=== PATIENT | male | born 1940 | race Hispanic/Latino ===

== ENCOUNTER 2017-02-26 10:11 | Observation (INO) | payer MEDICARE, BC ==
[2017-02-26 10:11] VITALS: BMI 27.3
[2017-02-26] MEDS ORDERED: Iohexol 240 (50 ml) PO STA (11:14)
[2017-02-26] MEDS ORDERED: Sodium Chloride 0.9% 1,000 ML IV ONE (11:14)
--- NOTE | 2017-02-26 11:14 | C.PDOC ---
History Of Present Illness 76 yr old male presents to the ER with complaints of new onset of right sided chest pain since 0700 today. Patient states the pain radiates to the right side of the neck but has now resolved. Patient reports history of prior heart stent and is s/p stress test 2016. 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 Also reports of diaphoresis. Patient denies associated chest pain, SOB, nausea or vomiting. Patient also reports of chronic throat pain "for a while" but only while eating or clears his throat. Patient states he is able to swallow liquids and solids without difficulty. Patient states he gets a rash to the abdominal wall when he eats and was seen by a plug stitcher for the same and was diagnosed with "bacterial infection". Patient states he is s/p possible photo therapy for same but states no improvement in symptoms. Patient denies any prior history of GI evaluation for the symptoms. Denies PUD or other GI related problems. Patient states he is non compliant with his regular medicine for the past 3 weeks, states "because I was getting all those dermatology treatments and I thought it would be best if I stopped". Other fleming patient denies fever, chills, headache , weakness or numbness. MULTIPLE COMPLAINTS NEW ONSET R SIDED CHEST PAIN 0700. RADIATION R NECK, NOW RESOLVED. HO PRIOR HEART STENT, S/P STRESS TEST 2016. 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 NO ASSOC NV, CP. + DIAPH. ALSO CO CHRONIC THROAT PAIN "FOR A WHILE", ONLY W EATING SPICY FOODS OR CLEARS HIS THROAT. ABLE TO SWALLOW LIQUIDS AND SOLIDS WO DIFF. STATES GETS ABD WALL RASH WHEN EATS. SAW VIRTUAL ASSISTANT FOR SAME, DX "BACTERIAL INFXN". S/P ?PHOTO THERAPY FOR SAME BUT PS NO IMPROVE SX. NO PRIOR GI EVAL FOR SAME,. DENIES HO PUD , OTHER GI PROBLEM. NON COMPLAINT W REG MEDS X 3 WEEKS "BC I WAS GETTING ALL THOSE DERMATOLOGY TREATMENTS AND I THOUGHT IT WOULD BE BEST IF I STOPPED". EXAM NAD NONTOXIC HEENT NO STRIDOR; SWALLOWING WO DIFF NECK NO GROSS MASS, ASYM LUNGS CTA BL NO W/R/R CV RRR ABD NEG SKIN MULT LACY, RASH RUQ ABD WALL NONBLANCHING FLAT, SMOOTH. NONTEND. REMAINDER NEG Time Seen by Provider: 02/26/17 11:03 Chief Complaint (Nursing): Chest Pain History Per: Patient History/Exam Limitations: no limitations Onset/Duration Of Symptoms: Days Current Symptoms Are (Timing): Still Present Past Medical History Reviewed: Historical Data, Nursing Documentation, Vital Signs Vital Signs: Last Vital Signs Temp 98.1 F 02/26/17 10:25 Pulse 68 02/26/17 14:10 Resp 14 02/26/17 14:10 BP 165/80 H 02/26/17 14:10 Pulse Ox 98 02/26/17 17:38 - Medical History PMH: HTN, Hypercholesterolemia, Kidney Stones (with stent placement) Surgical History: Coronary Stent - [facility] Procedures CYSTOSCOPY NEC (03/27/13) REMOV URETERAL DRAIN (06/15/13) TU REMOV URETER OBSTRUCT (04/09/13) URETERAL CATHETERIZATION (03/27/13) Family History: States: No Known Family Hx - Social History Hx Tobacco Use: No Hx Alcohol Use: Yes Hx Substance Use: No - Immunization History Hx Tetanus Toxoid Vaccination: No Hx Influenza Vaccination: No Hx Pneumococcal Vaccination: No Review Of Systems Except As Marked, All Systems Reviewed And Found Negative. Constitutional: Positive for: Other ((+) Diaphoresis ). Negative for: Fever, Chills ENT: Positive for: Throat Pain (Chronic) Cardiovascular: Positive for: Other ((+) Right sided chest pain.). Negative for : Chest Pain Respiratory: Negative for: Shortness of Breath Gastrointestinal: Negative for: Nausea, Vomiting Skin: Positive for: Rash (to abdominal wall) Neurological: Negative for: Weakness, Numbness, Headache Physical Exam - Physical Exam Appears: Non-toxic, No Acute Distress, Other ((+) Swallowing without difficulty. ) Skin: Warm, Dry, Other ((+) Multiple LACY, rash to RUQ abd wall. Nonblanching, flat, smooth. ) Head: Atraumatic, Normacephalic Oral Mucosa: Moist Throat: Normal, No Erythema, No Exudate, No Drooling Neck: Normal, Normal ROM, Supple Chest: Symmetrical, No Tenderness Cardiovascular: Rhythm Regular, No Murmur Respiratory: Normal Breath Sounds, No Rales, No Rhonchi, No Stridor, No Wheezing Gastrointestinal/Abdominal: Normal Exam, Soft, No Tenderness, No Guarding, No Rebound Extremity: Normal ROM, No Swelling Neurological/Psych: Oriented x3, Normal Speech, Normal Motor ED Course And Treatment - Laboratory Results Result Diagrams: 02/26/17 11:59 02/26/17 12:21 ECG: Interpreted By Me ECG Rhythm: Sinus Tachycardia Rate From EC (BPM) O2 Sat by Pulse Oximetry: 98 (RA) Pulse Ox Interpretation: Normal - Radiology CXR: Interpreted by Me CXR Interpretation: Yes: No Acute Disease - CT Scan/US US - Abdomen Other Rad Studies (CT/US): Read By Radiologist, Radiology Report Reviewed CT/US Interpretation: HISTORY: R ABD PAIN RO ACUTE ALEX. COMPARISON: CT abdomen and pelvis without IV contrast performed 03/24/13. TECHNIQUE: Sonographic evaluation of the right upper quadrant of the abdomen. FINDINGS: LIVER: Measures 17.5 cm in length. Echogenic liver may be seen in setting of hepatic parenchymal disease or fatty infiltration. 2.8 x 2.4 x 3.2 cm left hepatic lobe and 4.1 x 4.0 x 4.6 cm right hepatic lobe cysts. The right hepatic lobe cyst appears complex/ multi septated. Main portal vein appears patent with normal directional flow. No intrahepatic bile duct dilatation. GALLBLADDER: No gallstones. No gallbladder wall thickening or pericholecystic edema. Negative sonographic Carlos's sign as assessed by the sexual assault counselor. COMMON BILE DUCT: Measures 5 mm. PANCREAS: Not well-visualized. RIGHT KIDNEY : Measures 10.6 x 6.0 x 5.3 cm. No obstructing calculus or hydronephrosis identified. AORTA: Limited visualization appears grossly unremarkable. IVC: Limited visualization appears grossly unremarkable. OTHER FINDINGS: None . IMPRESSION: Echogenic liver may be seen in setting of hepatic parenchymal disease or fatty infiltration. Right and left hepatic lobe cysts as above. The right hepatic lobe appears complex/ multi septated. Progress - Re-Evaluation Re-evaluation Note: 02/26/17 15:31 APPEARS COMFORTABLE NAD. PENDING CT 02/26/17 17:39 NO RECUR CP SINCE PRIOR EVAL. MILD INCR TROP #2 BUT STILL WNL D/W DR BILL AWARE OF ER FINDINGS. WILL ADMIT - Data Reviewed Data Reviewed: Lab, Diagnostic imaging, EKG, Old records Medical Decision Making Medical Decision Making: PLAN: * CT - Abd & Pelvis * US -Abdomen * CXR * EKG * Troponin * CBC * CMP * Urinalysis * Sodium Chloride IV Disposition Counseled Patient/Family Regarding: Studies Performed, Diagnosis - Disposition Disposition: HOSPITALIZED Disposition Time: :39 Condition: STABLE Forms: [facility] (Japanese) - POA Present On Arrival: None - Clinical Impression Clinical Impression: Liver lesion, Chest pain, Abdominal pain - Scribe Statement The provider has reviewed the documentation as recorded by the Ermiasibjunito Strong Provider Attestation: All medical record entries made by the Ermiasibe were at my direction and personally dictated by me. I have reviewed the chart and agree that the record accurately reflects my personal performance of the history, physical exam, medical decision making, and the department course for this patient. I have also personally directed, reviewed, and agree with the discharge instructions and disposition. Decision To Admit - Pt Status Changed To: Hospital Disposition Of: Observation - . Bed Request Type: Telemetry Admitting Physician: Chrissie Colvin Patient Diagnosis: Liver lesion, Chest pain, Abdominal pain
[2017-02-26] MEDS ORDERED: Iohexol 240 (50 ml) ONE (11:45)
[2017-02-26 12:04] LABS: BASO % 0.6 % (0.0-2.0); EOS % 0.9 % (0.0-4.0); HEMATOCRIT 42.3 % (35.0-51.0); LYMPH % 22.8 % (20.0-40.0); MEAN CELL VOLUME 87.3 fL (80.0-94.0); MEAN CORPUSCULAR HEMOGLOBIN 29.4 pg (27.0-31.0); MEAN CORPUSCULAR HGB CONC 33.7 g/dL (33.0-37.0); MEAN PLATELET VOLUME 8.3 fL (7.2-11.7); MONO # 0.4 K/uL (0.0-0.8); MONO % 7.9 % (0.0-10.0); NRBC % 0.3 % (0.0-2.0); RED CELL DISTRIBUTION WIDTH 15.5 % (11.5-14.5); WHITE BLOOD COUNT 4.6 K/uL (4.8-10.8)
[2017-02-26 12:27] LABS: BLOOD UREA NITROGEN 20 mg/dL (9-20); GLUCOSE,RANDOM 87 mg/dL (75-110)
[2017-02-26 12:28] LABS: ALB/GLOB RATIO 1.5 (1.0-2.1); CARBON DIOXIDE 23 mmol/L (22-30); CHLORIDE 105 mmol/L (98-107); GFR AFRICAN-AMERICAN > 60; POTASSIUM 3.9 mmol/L (3.6-5.2); SODIUM 143 mmol/L (132-148); TOTAL PROTEIN 6.4 g/dL (6.3-8.3)
[2017-02-26 12:29] LABS: ALKALINE PHOSPHATASE 47 U/L (38-126); ALT/SGPT 25 U/L (21-72); AST/SGOT 21 U/L (17-59); BILIRUBIN,TOTAL 0.8 mg/dL (0.2-1.3)
[2017-02-26 12:40] LABS: URINE BILIRUBIN NEGATIVE (NEGATIVE); URINE BLOOD 2+ (NEGATIVE); URINE COLOR YELLOW (YELLOW); URINE GLUCOSE (UA) NEGATIVE (Normal); URINE KETONE NEGATIVE (NEGATIVE); URINE LEUKOCYTE ESTERASE NEGATIVE Leu/uL (Negative); URINE PROTEIN NEGATIVE (NEGATIVE)
[2017-02-26 12:41] LABS: RBC URINE 7 /hpf (0-3); WBC URINE 1 /hpf (0-5)
--- NOTE | 2017-02-26 12:42 | US ---
HISTORY: R ABD PAIN RO ACUTE ALEX COMPARISON: CT abdomen and pelvis without IV contrast performed 03/24/13 TECHNIQUE: Sonographic evaluation of the right upper quadrant of the abdomen. FINDINGS: LIVER: Measures 17.5 cm in length. Echogenic liver may be seen in setting of hepatic parenchymal disease or fatty infiltration. 2.8 x 2.4 x 3.2 cm left hepatic lobe and 4.1 x 4.0 x 4.6 cm right hepatic lobe cysts. The right hepatic lobe cyst appears complex/ multi septated. Main portal vein appears patent with normal directional flow. No intrahepatic bile duct dilatation. GALLBLADDER: No gallstones. No gallbladder wall thickening or pericholecystic edema. Negative sonographic Carlos's sign as assessed by the diesel engine pipe fitter. COMMON BILE DUCT: Measures 5 mm. PANCREAS: Not well-visualized. RIGHT KIDNEY: Measures 10.6 x 6.0 x 5.3 cm. No obstructing calculus or hydronephrosis identified. AORTA: Limited visualization appears grossly unremarkable. IVC: Limited visualization appears grossly unremarkable. OTHER FINDINGS: None . IMPRESSION: Echogenic liver may be seen in setting of hepatic parenchymal disease or fatty infiltration. Right and left hepatic lobe cysts as above. The right hepatic lobe appears complex/ multi septated.
--- NOTE | 2017-02-26 13:15 | RAD ---
PROCEDURE: CHEST RADIOGRAPH, 1 VIEW HISTORY: abd pain COMPARISON: None available. FINDINGS: LUNGS: Clear. PLEURA: No pneumothorax or pleural fluid seen. CARDIOVASCULAR: Normal. OSSEOUS STRUCTURES: No significant abnormalities. VISUALIZED UPPER ABDOMEN: Normal. OTHER FINDINGS: None. IMPRESSION: No active disease. No infiltrate
[2017-02-26] MEDS ORDERED: Iohexol 300 100 ML IJ ONE (16:02)
--- NOTE | 2017-02-26 17:19 | CT ---
PROCEDURE: CT Abdomen and Pelvis with oral and IV contrast. HISTORY: abd pain COMPARISON: Limited abdominal ultrasound performed 02/26/17, CT abdomen and pelvis without IV contrast performed 03/24/13 TECHNIQUE: Contiguous axial images of the abdomen and pelvis. Oral and IV contrast was administered. Coronal and Sagittal reformats generated and reviewed. Contrast dose: 100 mL Omnipaque 300 Radiation dose: Total exam DLP = 494.91 mGy-cm. This CT exam was performed using one or more of the following dose reduction techniques: Automated exposure control, adjustment of the mA and/or kV according to patient size, and/or use of iterative reconstruction technique. FINDINGS: LOWER THORAX: No visible consolidation, pleural effusion, or pneumothorax. Small hiatal hernia/distal esophageal wall thickening. LIVER: Numerous low-density lesions throughout the liver, several of which are too small to characterize. Largest lesions reside within the left hepatic lobe measuring approximately 3.1 x 2.5 cm and in the right hepatic lobe measuring approximately 2.9 x 5.1 cm; this lesion corresponds with complex cystic lesion demonstrated on ultrasound performed 02/26/17. Additionally, there is an enhancing lesion measuring approximately 1.6 x 1.2 cm just lateral to this finding, indeterminate. Overall hypoattenuation of the liver may be seen in the setting of hepatic steatosis. GALLBLADDER AND BILE DUCTS: Unremarkable. PANCREAS: Unremarkable. SPLEEN: Unremarkable. ADRENALS: Unremarkable. KIDNEYS AND URETERS: The kidneys enhance symmetrically. No hydronephrosis or obstructing renal calculus. BLADDER: The urinary bladder appears unremarkable. REPRODUCTIVE: The prostate gland measures approximately 4.1 x 5.4 cm. APPENDIX: The appendix appears within normal limits of caliber. No secondary signs of acute appendicitis. BOWEL: The stomach is nondistended. The bowel loops appear within normal limits of caliber without evidence of intestinal obstruction. Large proximal duodenal diverticulum. Diverticulosis without CT evidence of acute diverticulitis. Fecalization within small bowel loops, nonspecific. PERITONEUM: No significant free fluid. No definite free air. LYMPH NODES: No bulky lymphadenopathy identified. VASCULATURE: Evidence of proximal right renal artery stent. Dense atherosclerotic calcifications of the aorta and branches. Mild bulge of the infrarenal abdominal aorta measuring approximately 2.5 cm in transverse diameter. BONES: Degenerative changes. OTHER FINDINGS: Small bowel containing right ventral hernia adjacent to the umbilicus. IMPRESSION: Numerous low-density lesions throughout the liver, several of which are too small to characterize. Largest lesions reside within the left hepatic lobe measuring approximately 3.1 x 2.5 cm and in the right hepatic lobe measuring approximately 2.9 x 5.1 cm; this lesion corresponds with complex cystic lesion demonstrated on ultrasound performed 02/26/17. Overall hypoattenuation of the liver may be seen in the setting of hepatic steatosis. Additionally, there is an enhancing lesion measuring approximately 1.6 x 1.2 cm just lateral to the largest right hepatic lobe cyst described above, indeterminate. Recommend dedicated cross-sectional imaging for further characterization. Enlarged prostate gland. Recommend correlation with PSA. Diverticulosis without CT evidence of acute diverticulitis. Large duodenal diverticulum. Small bowel containing right ventral hernia adjacent to the umbilicus. No evidence of bowel obstruction. Fecalization within small bowel loops, nonspecific finding. Dense atherosclerotic calcifications of the aorta and branches. Mild bulge of the infrarenal abdominal aorta measuring approximately 2.5 cm in transverse diameter. Evidence of proximal right renal artery stent. Additional findings as above.
--- NOTE | 2017-02-26 19:43 | CP.PCM.HP ---
History of Present Illness - History of Present Illness History of Present Illness: This is a 76 y/o male with known history of CAD, S/P PCI in the past, Hypertension, PVD S/P Femoro-popliteal Bypass surgery L, in the past and hyperlipidemia who was admitted because of chest discomofort. patient reportedly woke up this morning with pain on the right side of his chest that radiated to his neck felt at rest. He has recently stopped taking his medications over the last 3 weeks because of some problem with his stomach. he claims that he has been getting pains in the epigastric area everytime he eats and he claims to smell some bad odor coming from his stomach. This is accompanied by diaphoresis, and loss of appetite. He went to a marketing reporting analyst also who gave him some injections and laser treatments. In the ER he had an abd u/s and CT Scan of the abdomen that showed multiple lesions in the liver some of which are described as complex cysts. He denies any vomiting. Denies any problem with his bm. He is now admitted for further observation and evaluation. Present on Admission - Present on Admission Any Indicators Present on Admission: No History of DVT/PE: No History of Uncontrolled Diabetes: No Review of Systems - Review of Systems All systems: reviewed and no additional remarkable complaints except - EENT Eyes: As Per HPI, Tunnel Vision - Cardiovascular Cardiovascular: Chest Pain, Edema, Radiating Pain - Gastrointestinal Gastrointestinal: Abdominal Pain, Dyspepsia - Genitourinary Genitourinary: As Per HPI - Neurological Neurological: As Per HPI - Psychiatric Psychiatric: As Per HPI Past Patient History - Infectious Disease Hx of Infectious Diseases: None - Past Social History Smoking Status: Former Smoker Drugs: Denies Home Situation {Lives}: Alone - CARDIAC Hx Cardiac Disorders: Yes (S/P PCI) Hx Hypercholesterolemia: Yes Hx Hypertension: Yes Hx Peripheral Vascular Disease: Yes (S/P Fem Pop L) - PULMONARY Hx Respiratory Disorders: No - NEUROLOGICAL Hx Neurological Disorder: No - RENAL Hx Kidney Stones: Yes (with stent placement) - ENDOCRINE/METABOLIC Hx Endocrine Disorders: No - HEMATOLOGICAL/ONCOLOGICAL Hx Blood Disorders: No - MUSCULOSKELETAL/RHEUMATOLOGICAL Hx Musculoskeletal Disorders: No Hx Osteoarthritis: Yes - GASTROINTESTINAL Hx Gastrointestinal Disorders: Yes - PSYCHIATRIC Hx Psychophysiologic Disorder: No Hx Substance Use: No - SURGICAL HISTORY Hx Surgeries: Yes Hx Angiogram: Yes Hx Cardiac Catheterization: Yes Hx Coronary Stent: Yes Hx Femoral-Popliteal Bypass Graft: Yes (L Fem Pop) Hx Vascular Surgery: Yes - ANESTHESIA Hx Anesthesia: Yes Hx Anesthesia Reactions: No Meds Allergies/Adverse Reactions: Allergies Allergy/AdvReac Type Severity Reaction Status Date / Time No Known Allergies Allergy Verified 03/27/13 11:49 Physical Exam - Head Exam Head Exam: NORMAL INSPECTION - Eye Exam Eye Exam: Normal appearance - ENT Exam ENT Exam: Normal Exam - Neck Exam Neck exam: Positive for: Normal Inspection - Respiratory Exam Respiratory Exam: Clear to Auscultation Bilateral, NORMAL BREATHING PATTERN - Cardiovascular Exam Cardiovascular Exam: REGULAR RHYTHM, RRR, +S1, +S2 - GI/Abdominal Exam GI & Abdominal Exam: Normal Bowel Sounds, Soft - Extremities Exam Additional comments: reduced pedal pulses bilaterally - Neurological Exam Neurological exam: Alert, CN II-XII Intact, Oriented x3 - Psychiatric Exam Psychiatric exam: Normal Affect, Normal Mood - Skin Skin Exam: Dry, Intact, Normal Color, Warm Results - Vital Signs Recent Vital Signs: Last Vital Signs Temp 98.1 F 02/26/17 10:25 Pulse 72 02/26/17 18:43 Resp 14 02/26/17 18:43 BP 162/95 H 02/26/17 18:43 Pulse Ox 98 02/26/17 18:43 - Labs Result Diagrams: 02/27/17 05:48 02/27/17 05:48 Labs: Laboratory Results - last 24 hr 02/26/17 02/26/17 02/26/17 11:59 12:21 12:27 WBC 4.6 L RBC 4.84 Hgb 14.2 Hct 42.3 MCV 87.3 MCH 29.4 MCHC 33.7 RDW 15.5 H Plt Count 140 MPV 8.3 Neut % (Auto) 67.8 Lymph % (Auto) 22.8 [place] % (Auto) 7.9 Eos % (Auto) 0.9 Baso % (Auto) 0.6 Neut # 3.1 Lymph # 1.0 [place] # 0.4 Eos # 0.0 Baso # 0.0 PT INR APTT Sodium 143 Potassium 3.9 Chloride 105 Carbon Dioxide 23 Anion Gap 19 BUN 20 Creatinine 1.0 Est GFR ( Amer) > 60 Est GFR (Non-Af Amer) > 60 Random Glucose 87 Calcium 9.0 Total Bilirubin 0.8 AST 21 ALT 25 Alkaline Phosphatase 47 Troponin I < 0.0120 Total Protein 6.4 Albumin 3.9 Globulin 2.6 Albumin/Globulin Ratio 1.5 Lipase 80 Urine Color Yellow Urine Clarity Clear Urine pH 6.0 Ur Specific [place] 1.020 Urine Protein Negative Urine Glucose (UA) Negative Urine Ketones Negative Urine Blood 2+ H Urine Nitrate Negative Urine Bilirubin Negative Urine Urobilinogen 2.0 Ur Leukocyte Esterase Negative Urine WBC (Auto) 1 Urine RBC (Auto) 7 H Ur Squamous Epith Cells < 1 02/26/17 02/26/17 12:27 15:44 WBC RBC Hgb Hct MCV MCH MCHC RDW Plt Count MPV Neut % (Auto) Lymph % (Auto) [place] % (Auto) Eos % (Auto) Baso % (Auto) Neut # Lymph # [place] # Eos # Baso # PT 10.8 INR 1.0 APTT 32 Sodium Potassium Chloride Carbon Dioxide Anion Gap BUN Creatinine Est GFR ( Amer) Est GFR (Non-Af Amer) Random Glucose Calcium Total Bilirubin AST ALT Alkaline Phosphatase Troponin I 0.0300 Total Protein Albumin Globulin Albumin/Globulin Ratio Lipase Urine Color Urine Clarity Urine pH Ur Specific [place] Urine Protein Urine Glucose (UA) Urine Ketones Urine Blood Urine Nitrate Urine Bilirubin Urine Urobilinogen Ur Leukocyte Esterase Urine WBC (Auto) Urine RBC (Auto) Ur Squamous Epith Cells Assessment & Plan - Assessment and Plan (Free Text) Assessment: 1. Chest PAIN, R/O ACS- serial GAURAV and EKG in this patient with known history of CAD S/P PCI [address] Scan with multiple liver lesions- R/O Malignancy vs Hepatic Parenchymal Disease/ Hepatic Steatosis- Requested GI consultation 3. PAD- S/P Fem Pop L- seems stable at thist [email or web address] 4. HTN/ Hyperlipidemia- better controlled at this time with resumption of meds. Decision To Admit - Pt Status Changed To: Hospital Disposition Of: Observation - . Bed Request Type: Telemetry Admitting Physician: Chrissie Colvin
[2017-02-26] MEDS: Cilostazol 100 mg Tab UD PO SCH (23:54)
[2017-02-27 01:34] VITALS: RESP 20
[2017-02-27 05:51] LABS: BASO % 0.9 % (0.0-2.0); EOS # 0.1 K/uL (0.0-0.7); EOS % 2.1 % (0.0-4.0); HEMATOCRIT 39.2 % (35.0-51.0); LYMPH # 1.4 K/uL (1.0-4.3); LYMPH % 35.3 % (20.0-40.0); MEAN CELL VOLUME 87.4 fL (80.0-94.0); MEAN CORPUSCULAR HEMOGLOBIN 29.9 pg (27.0-31.0); MEAN CORPUSCULAR HGB CONC 34.2 g/dL (33.0-37.0); MEAN PLATELET VOLUME 8.1 fL (7.2-11.7); MONO # 0.4 K/uL (0.0-0.8); MONO % 10.3 % (0.0-10.0); NRBC % 0.1 % (0.0-2.0); RED CELL DISTRIBUTION WIDTH 15.4 % (11.5-14.5)
[2017-02-27 06:04] LABS: CHLORIDE 104 mmol/L (98-107); POTASSIUM 3.9 mmol/L (3.6-5.2); SODIUM 142 mmol/L (132-148)
[2017-02-27 06:06] LABS: BILIRUBIN,TOTAL 0.7 mg/dL (0.2-1.3); GFR AFRICAN-AMERICAN > 60
[2017-02-27 06:07] LABS: ALB/GLOB RATIO 1.5 (1.0-2.1); ALKALINE PHOSPHATASE 41 U/L (38-126); ALT/SGPT 24 U/L (21-72); AST/SGOT 18 U/L (17-59); BLOOD UREA NITROGEN 17 mg/dL (9-20); CALCIUM 8.6 mg/dl (8.6-10.4); CARBON DIOXIDE 25 mmol/L (22-30); GLUCOSE,RANDOM 103 mg/dL (75-110); TOTAL PROTEIN 5.6 g/dL (6.3-8.3)
[2017-02-27 06:38] LABS: CARCINOEMBRYONIC ANTIGEN 2.5 ng/mL (0-3.0); PROSTATE SPECIFIC ANTIGEN 2.92 ng/mL (0.00-4.0)
[2017-02-27] MEDS: Metoprolol Succinate 50 mg XL Tab PO SCH ×2 (10:13→17:38)
[2017-02-27] MEDS: Cilostazol 100 mg Tab UD PO SCH (10:13)
[2017-02-27 15:38] VITALS: BP 104/65; PULSE 84; TEMP 97.6; O2SAT 96
--- NOTE | 2017-02-27 17:23 | CP.PCM.DIS ---
Provider - Provider Date of Admission: 02/26/17 17:40 Attending physician: Chrissie Colvin MD Primary care physician: Steven Colvin Consults: Aneudy Bridges Time Spent in preparation of Discharge (in minutes): 40 Diagnosis - Discharge Diagnosis (1) Atypical chest pain Status: Resolved Priority: Medium Comment: ACS ruled out with normal enzymes and EKG's. Will resume cardiac meds that he stopped for a few weeks. (2) Abdominal pain, acute, epigastric Status: Resolved Priority: Medium Comment: Discussed with GI. Will follow up in the office for further evaluation and management. (3) Abnormal CT scan, liver Status: Chronic Priority: Medium Comment: Mosy likely benign. Noted in CT Scan in 2013. No significant change. (4) Hypertension Status: Chronic Priority: Low Comment: To resume all antihypertensive meds. BP much improved. Hospital Course - Lab Results Lab Results: Most Recent Lab Values WBC 4.0 K/uL (4.8-10.8) L 02/27/17 05:48 RBC 4.48 Mil/uL (4.40-5.90) 02/27/17 05:48 Hgb 13.4 g/dL (12.0-18.0) 02/27/17 05:48 Hct 39.2 % (35.0-51.0) 02/27/17 05:48 MCV 87.4 fL (80.0-94.0) 02/27/17 05:48 MCH 29.9 pg (27.0-31.0) 02/27/17 05:48 MCHC 34.2 g/dL (33.0-37.0) 02/27/17 05:48 RDW 15.4 % (11.5-14.5) H 02/27/17 05:48 Plt Count 119 K/uL (130-400) L D 02/27/17 05:48 MPV 8.1 fL (7.2-11.7) 02/27/17 05:48 Neut % (Auto) 51.4 % (50.0-75.0) 02/27/17 05:48 Lymph % (Auto) 35.3 % (20.0-40.0) 02/27/17 05:48 [place] % (Auto) 10.3 % (0.0-10.0) H 02/27/17 05:48 Eos % (Auto) 2.1 % (0.0-4.0) 02/27/17 05:48 Baso % (Auto) 0.9 % (0.0-2.0) 02/27/17 05:48 Neut # 2.1 K/uL (1.8-7.0) 02/27/17 05:48 Lymph # 1.4 K/uL (1.0-4.3) 02/27/17 05:48 [place] # 0.4 K/uL (0.0-0.8) 02/27/17 05:48 Eos # 0.1 K/uL (0.0-0.7) 02/27/17 05:48 Baso # 0.0 K/uL (0.0-0.2) 02/27/17 05:48 Differential Comment 02/27/17 05:48 PT 10.8 SECONDS (9.7-12.2) 02/26/17 12:27 INR 1.0 02/26/17 12:27 APTT 32 SECONDS (21-34) 02/26/17 12:27 Sodium 142 mmol/L (132-148) 02/27/17 05:48 Potassium 3.9 mmol/L (3.6-5.2) 02/27/17 05:48 Chloride 104 mmol/L (98-107) 02/27/17 05:48 Carbon Dioxide 25 mmol/L (22-30) 02/27/17 05:48 Anion Gap 17 (10-20) 02/27/17 05:48 BUN 17 mg/dL (9-20) 02/27/17 05:48 Creatinine 1.2 MG/DL (0.8-1.5) 02/27/17 05:48 Est GFR ( Amer) > 60 02/27/17 05:48 Est GFR (Non-Af Amer) 59 02/27/17 05:48 POC Glucose (mg/dL) 118 mg/dL (65-110) H 02/27/17 12:47 Random Glucose 103 mg/dL (75-110) 02/27/17 05:48 Calcium 8.6 mg/dl (8.6-10.4) 02/27/17 05:48 Total Bilirubin 0.7 mg/dL (0.2-1.3) 02/27/17 05:48 AST 18 U/L (17-59) 02/27/17 05:48 ALT 24 U/L (21-72) 02/27/17 05:48 Alkaline Phosphatase 41 U/L (38-126) 02/27/17 05:48 Total Creatine Kinase 32 U/L (55-170) L 02/27/17 11:14 CK-MB (Mass) 0.55 ng/mL (0.0-3.38) 02/27/17 11:14 Troponin I 0.0300 ng/mL (0.00-0.120) 02/26/17 15:44 Troponin I, Quant 0.0140 ng/mL (0.00-0.120) 02/27/17 11:14 Total Protein 5.6 g/dL (6.3-8.3) L 02/27/17 05:48 Albumin 3.3 g/dL (3.5-5.0) L 02/27/17 05:48 Globulin 2.3 gm/dL (2.2-3.9) 02/27/17 05:48 Albumin/Globulin Ratio 1.5 (1.0-2.1) 02/27/17 05:48 Lipase 80 U/L (23-300) 02/26/17 12:21 Alpha Fetoprotein 3.1 ng/mL (0.0-7.5) 02/27/17 05:48 Carcinoembryonic Ag 2.5 ng/mL (0-3.0) 02/27/17 05:48 Prostate Specific Ag 2.92 ng/mL (0.00-4.0) 02/27/17 05:48 Urine Color Yellow (YELLOW) 02/26/17 12:27 Urine Clarity Clear (Clear) 02/26/17 12:27 Urine pH 6.0 (5.0-8.0) 02/26/17 12:27 Ur Specific [place] 1.020 (1.003-1.030) 02/26/17 12:27 Urine Protein Negative mg/dL (NEGATIVE) 02/26/17 12:27 Urine Glucose (UA) Negative mg/dL (Normal) 02/26/17 12:27 Urine Ketones Negative mg/dL (NEGATIVE) 02/26/17 12:27 Urine Blood 2+ (NEGATIVE) H 02/26/17 12:27 Urine Nitrate Negative (NEGATIVE) 02/26/17 12:27 Urine Bilirubin Negative (NEGATIVE) 02/26/17 12:27 Urine Urobilinogen 2.0 mg/dL (0.2-1.0) 02/26/17 12:27 Ur Leukocyte Esterase Negative [place]/uL (Negative) 02/26/17 12:27 Urine WBC (Auto) 1 /hpf (0-5) 02/26/17 12:27 Urine RBC (Auto) 7 /hpf (0-3) H 02/26/17 12:27 Ur Squamous Epith Cells < 1 /hpf (0-5) 02/26/17 12:27 - Hospital Course Hospital Course: kylee is a 76 y/o male who was admitted because of chest pain radiating to his neck. He has history of CAD, S/P PCI several years ago. He also has PVD and had Fem-po bypass in the past. He had serial enzymes and EKG's that ruled out ACS. He also complained of epigastric pain whenever he ate accompanied by feeling of diphoresis/flushing and loss of appetite. He had a CT Scan of the Abd and pelvis with contrast that showed multiple cystic lesion in the liver. GI consultation was obtained. Patient claims that the abdominal and chest pain have been relieved. He will be discharged today and will be followed up in the office by myself and by the GI specialist. Discharge Exam - Head Exam Head Exam: NORMAL INSPECTION - Eye Exam Eye Exam: Normal appearance - ENT Exam ENT Exam: Normal Exam - Neck Exam Neck exam: Normal Inspection - Respiratory Exam Respiratory Exam: Clear to PA & Lateral, NORMAL BREATHING PATTERN - Cardiovascular Exam Cardiovascular Exam: REGULAR RHYTHM, RRR, +S1, +S2 - GI/Abdominal Exam GI & Abdominal Exam: Normal Bowel Sounds, Soft - Extremities Exam Additional comments: reduced pedal pulses - Neurological Exam Neurological exam: Alert, Oriented x3 - Psychiatric Exam Psychiatric exam: Normal Affect, Normal Mood Discharge Plan - Follow Up Plan Condition: STABLE Disposition: HOME/ ROUTINE
--- NOTE | 2017-02-27 17:41 | CP.PCM.CON ---
History of Present Illness - History of Present Illness History of Present Illness: This is a 76 year old man admitted with chest pain. GI consulted for abdominal flushing, sweating and body odor. Patient states that he was in his usual state of health until three months ago, when he noted the following symptoms after each meal: sweating, flushing of the skin over the abdomen and an intense body odor. He denies having heartburn, loss of appetite, diarrhea, constipation, rectal bleeding. He has the sensation of a lump in the throat but is able to swallow food without difficulty. He has lost 10 to 15 pounds during this time. He consulted a wagon drill operator who prescribe topical antibiotics and performed allergy testing. Review of Systems - Constitutional Constitutional: absent: Chills, Fever - Cardiovascular Cardiovascular: absent: Dyspnea - Gastrointestinal Gastrointestinal: absent: Constipation, Diarrhea, Heartburn, Hematochezia, Nausea, Vomiting - Neurological Neurological: absent: Numbness, Headaches, Weakness Past Patient History - Infectious Disease Hx of Infectious Diseases: None - Past Medical History & Family History Past Medical History?: Yes - Past Social History Smoking Status: Former Smoker Drugs: Denies Home Situation {Lives}: Alone - CARDIAC Hx Cardiac Disorders: Yes (S/P PCI) Hx Hypercholesterolemia: Yes Hx Hypertension: Yes Hx Peripheral Vascular Disease: Yes (S/P Fem Pop L) - PULMONARY Hx Respiratory Disorders: No - NEUROLOGICAL Hx Neurological Disorder: No - HEENT Hx HEENT Problems: No - RENAL Hx Kidney Stones: Yes (with stent placement) - ENDOCRINE/METABOLIC Hx Endocrine Disorders: No - HEMATOLOGICAL/ONCOLOGICAL Hx Blood Disorders: No - INTEGUMENTARY Hx Dermatological Problems: No - MUSCULOSKELETAL/RHEUMATOLOGICAL Hx Musculoskeletal Disorders: No Hx Osteoarthritis: Yes - GASTROINTESTINAL Hx Gastrointestinal Disorders: Yes - GENITOURINARY/GYNECOLOGICAL Hx Genitourinary Disorders: Yes Hx Prostate Problems: Yes - PSYCHIATRIC Hx Psychophysiologic Disorder: No Hx Substance Use: No - SURGICAL HISTORY Hx Surgeries: Yes Hx Angiogram: Yes Hx Cardiac Catheterization: Yes Hx Coronary Stent: Yes Hx Femoral-Popliteal Bypass Graft: Yes (L Fem Pop) Hx Vascular Surgery: Yes - ANESTHESIA Hx Anesthesia: Yes Hx Anesthesia Reactions: No Meds Allergies/Adverse Reactions: Allergies Allergy/AdvReac Type Severity Reaction Status Date / Time No Known Allergies Allergy Verified 03/27/13 11:49 - Medications Medications: Current Medications Cilostazol (Pletal) 100 mg PO BID [facility] Last Admin: 02/27/17 10:13 Dose: 100 mg Metoprolol Succinate (Toprol Xl) 50 mg PO BID [facility] Last Admin: 02/27/17 10:13 Dose: 50 mg Pneumococcal Polyvalent Vaccine (Pneumovax 23 Vaccine) 0.5 ml IM .ONCE ONE Stop: 02/28/17 10:01 Rosuvastatin Calcium (Crestor) 5 mg PO [facility] Last Admin: 02/26/17 23:55 Dose: 5 mg Physical Exam - Constitutional Appears: No Acute Distress - Head Exam Head Exam: ATRAUMATIC, NORMOCEPHALIC - Eye Exam Eye Exam: EOMI, PERRL - Neck Exam Neck exam: Negative for: Lymphadenopathy, Thyromegaly - Respiratory Exam Respiratory Exam: NORMAL BREATHING PATTERN. absent: Rales, Rhonchi, Wheezes - Cardiovascular Exam Cardiovascular Exam: REGULAR RHYTHM, +S1. absent: Rubs, Systolic Murmur - GI/Abdominal Exam GI & Abdominal Exam: Normal Bowel Sounds, Soft. absent: Mass, Organomegaly, Tenderness - Rectal Exam Rectal Exam: Deferred - Extremities Exam Extremities exam: Negative for: calf tenderness, pedal edema Results - Vital Signs Recent Vital Signs: Last Vital Signs Temp 97.6 F 02/27/17 15:31 Pulse 84 02/27/17 15:31 Resp 20 02/27/17 15:31 BP 104/65 02/27/17 15:31 Pulse Ox 96 02/27/17 15:31 - Labs Result Diagrams: 02/27/17 05:48 02/27/17 05:48 Labs: Laboratory Results - last 24 hr 02/27/17 02/27/17 02/27/17 05:48 05:48 05:48 WBC 4.0 L RBC 4.48 Hgb 13.4 Hct 39.2 MCV 87.4 MCH 29.9 MCHC 34.2 RDW 15.4 H Plt Count 119 L D MPV 8.1 Neut % (Auto) 51.4 Lymph % (Auto) 35.3 [place] % (Auto) 10.3 H Eos % (Auto) 2.1 Baso % (Auto) 0.9 Neut # 2.1 Lymph # 1.4 [place] # 0.4 Eos # 0.1 Baso # 0.0 Differential Comment Sodium 142 Potassium 3.9 Chloride 104 Carbon Dioxide 25 Anion Gap 17 BUN 17 Creatinine 1.2 Est GFR ( Amer) > 60 Est GFR (Non-Af Amer) 59 POC Glucose (mg/dL) Random Glucose 103 Calcium 8.6 Total Bilirubin 0.7 AST 18 ALT 24 Alkaline Phosphatase 41 Total Creatine Kinase 33 L CK-MB (Mass) 0.55 Troponin I, Quant 0.0150 Total Protein 5.6 L Albumin 3.3 L Globulin 2.3 Albumin/Globulin Ratio 1.5 Alpha Fetoprotein 3.1 Carcinoembryonic Ag 2.5 Prostate Specific Ag 2.92 02/27/17 02/27/17 11:14 12:47 WBC RBC Hgb Hct MCV MCH MCHC RDW Plt Count MPV Neut % (Auto) Lymph % (Auto) [place] % (Auto) Eos % (Auto) Baso % (Auto) Neut # Lymph # [place] # Eos # Baso # Differential Comment Sodium Potassium Chloride Carbon Dioxide Anion Gap BUN Creatinine Est GFR ( Amer) Est GFR (Non-Af Amer) POC Glucose (mg/dL) 118 H Random Glucose Calcium Total Bilirubin AST ALT Alkaline Phosphatase Total Creatine Kinase 32 L CK-MB (Mass) 0.55 Troponin I, Quant 0.0140 Total Protein Albumin Globulin Albumin/Globulin Ratio Alpha Fetoprotein Carcinoembryonic Ag Prostate Specific Ag Assessment & Plan - Assessment and Plan (Free Text) Assessment: Patient presents with an unusual constellation of symptoms: stereotyped diaphoresis, flushing of the abdomen and body odor after each meal. Gastric carcinoids can cause such flushing without diarrhea or cardiac abnormalities.Recommend testing for H pylori and EGD which can be done as an outpatient.
[2017-02-28] MEDS ORDERED: Pneumococcal 23-Valent Vaccine IM ONE (10:00)
== END 2017-02-27 18:30 | disposition home or self-care (01) ==
LOC: C.ER 10:11 → C.9E 17:40 → C.6T 19:45
PROVIDERS: ADMIT Internal Medicine Cardiovascular Disease; ATTEND Internal Medicine Cardiovascular Disease
DX: R07.89 Other chest pain (principal); K76.9 Liver disease, unspecified; R10.13 Epigastric pain; E78.00 Pure hypercholesterolemia, unspecified; E78.5 Hyperlipidemia, unspecified; I10 Essential (primary) hypertension; I25.10 Atherosclerotic heart disease of native coronary artery without angina pectoris; I73.9 Peripheral vascular disease, unspecified; Z87.442 Personal history of urinary calculi; Z87.891 Personal history of nicotine dependence; Z91.19 Patient's noncompliance with other medical treatment and regimen; Z95.5 Presence of coronary angioplasty implant and graft
CPT/HCPCS: 36415; 71010; 74177; 76705; 80053; 81001; 82105; 82378; 82948; 83690; 84153; 84484; 85025; 85610; 85730; 99285; G0378; J7040; Q9966; Q9967

== ENCOUNTER 2017-09-17 10:02 | Inpatient (IN) | payer MEDICARE, BC ==
[2017-09-17 10:02] VITALS: BMI 27.3
[2017-09-17 11:59] LABS: BASO % 0.7 % (0.0-2.0); EOS # 0.1 K/uL (0.0-0.7); EOS % 1.3 % (0.0-4.0); HEMOGLOBIN 13.5 g/dL (12.0-18.0); LYMPH # 1.2 K/uL (1.0-4.3); MEAN CELL VOLUME 88.7 fL (80.0-94.0); MEAN CORPUSCULAR HEMOGLOBIN 30.3 pg (27.0-31.0); MEAN CORPUSCULAR HGB CONC 34.2 g/dL (33.0-37.0); MEAN PLATELET VOLUME 8.1 fL (7.2-11.7); MONO # 0.5 K/uL (0.0-0.8); NEUT # 3.9 K/uL (1.8-7.0); RBC 4.46 Mil/uL (4.40-5.90); RED CELL DISTRIBUTION WIDTH 14.4 % (11.5-14.5); WHITE BLOOD COUNT 5.7 K/uL (4.8-10.8)
[2017-09-17 12:12] LABS: ALB/GLOB RATIO 1.3 (1.0-2.1); ALT/SGPT 29 U/L (21-72); AST/SGOT 29 U/L (17-59); BLOOD UREA NITROGEN 25 mg/dL (9-20); CALCIUM 8.9 mg/dl (8.6-10.4); GFR AFRICAN-AMERICAN > 60; GFR NON-AFRICAN AMERICAN > 60
[2017-09-17] MEDS ORDERED: Sodium Chloride 0.9% 1,000 ML IV STA (12:47)
--- NOTE | 2017-09-17 13:09 | RAD ---
PROCEDURE: CHEST RADIOGRAPH, 1 VIEW HISTORY: LE edema COMPARISON: 08/13/2017 FINDINGS: LUNGS: Clear. PLEURA: No pneumothorax or pleural fluid seen. CARDIOVASCULAR: No radiographic findings to suggest acute or significant cardiovascular disease. OSSEOUS STRUCTURES: No significant abnormalities. VISUALIZED UPPER ABDOMEN: Normal. OTHER FINDINGS: None. IMPRESSION: No active disease. No acute/significant interval changes.
--- NOTE | 2017-09-17 13:32 | C.PDOC ---
History Of Present Illness 76 year old male presents to the ED c/o right leg pain that started several weeks ago. Patient reports at first patient felt only cramps in his leg that would wake him from sleep with his toes all curled up. Patient states when he walks long distances he develops pain in his right calf which makes him stop walking and wait until he is able to walk again. Patient reports pain worsens and now is not able to walk. Patient states 5 years ago he had a "vascular problem" but the Doctor who performed the surgery retired. Patient went to his PMD Dr. Grimm who sent him to the ED for evaluation. Patient denies SOB, CP, abdominal pain, recent travel. Time Seen by Provider: 09/17/17 11:27 Chief Complaint (Nursing): Lower Extremity Problem/Injury History Per: Patient History/Exam Limitations: clinical condition Onset/Duration Of Symptoms: Days Current Symptoms Are (Timing): Still Present Recent travel outside of the [place]: No Additional History Per: Patient - Knee Description Of Injury: Other Past Medical History Reviewed: Historical Data, Nursing Documentation, Vital Signs Vital Signs: Last Vital Signs Temp 98.0 F 09/17/17 15:00 Pulse 70 09/17/17 15:00 Resp 18 09/17/17 15:00 BP 155/76 H 09/17/17 15:00 Pulse Ox 99 09/17/17 15:00 - Medical History PMH: HTN, Hypercholesterolemia, Kidney Stones (with stent placement), Chronic Kidney Disease Surgical History: Coronary Stent - [facility] Procedures CYSTOSCOPY NEC (03/27/13) REMOV URETERAL DRAIN (06/15/13) TU REMOV URETER OBSTRUCT (04/09/13) URETERAL CATHETERIZATION (03/27/13) Family History: States: Unknown Family Hx - Social History Hx Tobacco Use: No Hx Alcohol Use: No Hx Substance Use: No - Immunization History Hx Tetanus Toxoid Vaccination: No Hx Influenza Vaccination: No Hx Pneumococcal Vaccination: No Review Of Systems Constitutional: Negative for: Fever, Chills Cardiovascular: Negative for: Chest Pain Respiratory: Negative for: Shortness of Breath Gastrointestinal: Negative for: Abdominal Pain Musculoskeletal: Positive for: Leg Pain Skin: Negative for: Rash Neurological: Negative for: Weakness, Numbness Physical Exam - Physical Exam Appears: Non-toxic, No Acute Distress Skin: Normal Color, Warm, Dry Head: Atraumatic, Normacephalic Eye(s): bilateral: Normal Inspection Extremity: No Tenderness, Capillary Refill (< 2 seconds), Swelling (left leg), Other (left leg scar extending from lwer leg to thigh. Right leg lost hair jensen right side. No erythema. roght foot feels cool) Pulses: Left Dorsalis Pedis: Decreased (present with doppler), Right Dorsalis Pedis: Decreased (present with doppler) Neurological/Psych: Oriented x3, Normal Sensation, Normal Reflexes ED Course And Treatment - Laboratory Results Result Diagrams: 09/17/17 11:55 09/17/17 11:55 O2 Sat by Pulse Oximetry: 98 (On RA) Pulse Ox Interpretation: Normal Medical Decision Making Medical Decision Making: Impression: leg pain Plan: * CT angio lower legs * Labs * CXR * IV fluids * Venous duplex * Arterial duplex Dr. Grimm sent the patient to the ED and requested Dr. López for vascular. Dr. López came to see the patient at bedside to the ED and requested a CT angio of the lower extremities. Patient was accepted for an admission by . 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 - Scribe Statement The provider has reviewed the documentation as recorded by the Scribe Jin James All medical record entries made by the Scribe were at my direction and personally dictated by me. I have reviewed the chart and agree that the record accurately reflects my personal performance of the history, physical exam, medical decision making, and the department course for this patient. I have also personally directed, reviewed, and agree with the discharge instructions and disposition. Decision To Admit - Pt Status Changed To: Hospital Disposition Of: Inpatient - Admit Certification Admit to Inpatient:: After my assessment, the patient will require hospitalization for at least two midnights. This is because of the severity of symptoms shown, intensity of services needed, and/or the medical risk in this patient being treated as an outpatient. - InPatient: Physician Admission Certification: I certify that this patient requires 2 or more midnights of care for the following reason:: Patient will need more than 2 days of hospitalization, may need surgical treatment. - . Bed Request Type: Regular Admitting Physician: Chrissie Colvin Patient Diagnosis: Occlusion of arterial bypass graft
[2017-09-17] MEDS ORDERED: Iodixanol 320 mg/ml 150 ml Bottle IV ONE (15:24)
--- NOTE | 2017-09-17 17:40 | CT ---
PROCEDURE: CT Angiography Abdomen, Pelvis and Lower Extremity with Contrast HISTORY: RLE claudication, request from COMPARISON: Right lower extremity arterial ultrasound 09/17/2017. TECHNIQUE: Technique: CT angiography of the abdomen, pelvis and bilateral lower extremities performed in the arterial phase of enhancement. Coronal and sagittal reformats, and well as rotating MIP images of the vessels generated at the workstation. Intravenous contrast dose: Visipaque 320, 150 cc. Radiation dose: Total exam DLP = 494.91 mGy-cm. This CT exam was performed using one or more of the following dose reduction techniques: Automated exposure control, adjustment of the mA and/or kV according to patient size, and/or use of iterative reconstruction technique. FINDINGS: CT ANGIOGRAPHY: ABDOMINAL AORTA:: The abdominal aorta is widely patent though atherosclerotic with a limited infrarenal dilated segment measuring 2.9 x 2.1 cm further tapering down to 1.9 cm greatest dimension proximal to the bifurcation. MAJOR AORTIC BRANCHES: Celiac [place]: Widely patent. Superior mesenteric artery: Widely patent. Inferior mesenteric artery: Potential high-grade stenosis at its mid segment, though patent throughout. Renal arteries: Prior main right renal artery wall stent is identified in position without significant stenosis apparent. Main left renal artery is unremarkable. PELVIC ARTERIES: Right Common Iliac: Moderately ectatic and atherosclerotic but widely patent with limited proximal stenosis appreciated. Right External Iliac: Ectatic proximally but widely patent. Right Internal Iliac: Moderate stenoses are identified proximally with potential severe distal segmental stenosis though the vessel appears patent throughout. Left Common Iliac: Widely patent though mildly ectatic with limited atherosclerosis related. Left External Iliac: Widely patent without significant stenosis. Limited atherosclerosis. Left Internal Iliac: Patent with [id number] atherosclerosis. RIGHT LOWER EXTREMITY ARTERIES: Right Common Femoral: Widely patent without significant stenosis. A minimal proximal segment of a femoral -femoral bypass graft opacifies with remainder completely occluded to the graft- distal femoral anastomosis. At the site of the distal anastomosis is a 3.8 x 4.1 cm apparent thrombosed pseudoaneurysm, favored over circumscribed hematoma. Right Superficial Femoral: Completely occluded once again. Right Profunda Femoris: Patent with various collaterals reconstituting flow in the distal right SFA. Right Popliteal:Atherosclerotic with [id number] distal stenosis. Right Anterior Tibial: Patent to the right ankle with mild to moderate proximal stenosis. Right Tibioperoneal Trunk: Moderate to severe distal segmental stenosis with lesser variable stenoses scattered proximally and distally. Right Posterior Tibial: Severely diseased with multiple segmental occlusions in short segments follow by limited reconstitution to the ankle. Right Peroneal: Patent to the ankle without significant stenosis. Right dorsalis pedis : Patent. LEFT LOWER EXTREMITY ARTERIES: Left Common Femoral: Moderately stenosed at its distal most segment and widely patent proximal to that level. Left Superficial Femoral: Moderate origin stenosis but patent to the popliteal artery. Variable atherosclerosis associated with a moderate to severe distal stenosis at the adductor canal level. Left Profunda Femoris: Patent without significant stenosis appreciated. Left Popliteal: No significant stenosis appreciated. Left Anterior Tibial: High-grade stenosis identified proximally with an occlusion at its mid segment it reconstitutes quickly with remainder patent to the ankle. Left Tibioperoneal Trunk: Multiple mild segmental stenoses appreciated, patent throughout. . Left Posterior Tibial: Moderate to severely diseased with various proximal mid and distal segments though apparently patent to the ankle. Left Peronea: Patent to the ankle. Left Dorsalis pedis: Patent. NON-ANGIOGRAPHIC ASPECT OF THE EXAM: Evaluation in the anterior phase of enhancement limits interpretation of the abdominal viscera. LOWER THORAX: Unremarkable. LIVER: Multiple patent lucent lesions are again appreciated with a 4.8 cm lesion at the dome exhibiting peripheral nodular enhancement potentially representing a benign hemangioma. This is not definitive. Air enhancement may have increased in the interval compared to and pelvis CT 01/26/2017 though this could simply BS different phase of enhancement and follow-up MRI without contrast is advised for more definitive evaluation of these hepatic findings. GALLBLADDER AND BILE DUCTS: Unremarkable. PANCREAS: Unremarkable. No gross lesion or ductal dilatation. SPLEEN: Unremarkable. ADRENALS: Left posterior artery Unremarkable. No mass. KIDNEYS AND URETERS: Unremarkable. No hydronephrosis. No solid mass. STOMACH AND BOWEL: The stomach is largely collapsed. There is no bowel obstruction evident. Retained fecal material mildly distends the majority of the large bowel with scattered diverticulosis seen without acute changes. APPENDIX: Normal appendix. PERITONEUM: Unremarkable. No free fluid. No free air. LYMPH NODES: Unremarkable. No enlarged lymph nodes. BLADDER: Unremarkable. REPRODUCTIVE: Enlarged prostate gland. BONES: No acute fracture. OTHER FINDINGS: None. IMPRESSION: 1. 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 An occluded right SFA is identified most origin with limited reconstitution a few cm proximal to the popliteal artery. 2. Two-vessel runoff below the right knee. Severely diseased right posterior tibial artery. 3. Moderate distal INFORMATION BROKER stenosis. The left SFA is patent from origin to the popliteal artery however a moderate origin stenosis identified with high-grade distal SFA stenosis at the adductor canal level. 4. Two-vessel runoff below left knee with a moderate to severely diseased MEDICARE INSURANCE SPECIALIST which appears to be patent to the ankle nevertheless. 5. Multiple hepatic lucencies are appreciated with one exhibiting peripheral nodular enhancement. Follow-up MRI is advised with and without contrast for accurate characterization. Plays is not excluded. 6. Lesser additional findings in the abdomen and pelvis as discussed above.
--- NOTE | 2017-09-17 18:13 | CP.PCM.CON ---
History of Present Illness - History of Present Illness History of Present Illness: Vascular surgery consult for Dr. López Consulted for: R lower extremity claudication Patient is a 76M with PMH of PAD with PSH of bilateral fem pop bypasses who presents for 1 week of claudication of the right lower extremity. Patient states his pain is a cramping sensation that occurs after he walks more than 5 or 6 steps. Patient states that pain resolves if he stands still. Denies any pain at rest. Patient denies any numbness, wounds, pale or cold feet, chest pain , SOB, imbalance, or any other symptoms. PMH: CAD s/p stents, HTN, HLD, nephrolithiasis PSH: bilateral fem-pop bypass, ureteral drain, coronary stent ALL: NKDA Social: former smoker 40 years 1-2PPD, quit 10 years ago. former ETOH abuser, denies any illicit substances Review of Systems - Review of Systems All systems: reviewed and no additional remarkable complaints except (as per HPI ) Past Patient History - Infectious Disease Hx of Infectious Diseases: None - Past Medical History & Family History Past Medical History?: Yes Past Family History: Reviewed and not pertinent - Past Social History Smoking Status: Former Smoker Alcohol: Other (former) Drugs: Denies Home Situation {Lives}: Alone - CARDIAC Hx Hypercholesterolemia: Yes Hx Hypertension: Yes - PULMONARY Hx Respiratory Disorders: No - NEUROLOGICAL Hx Neurological Disorder: No - HEENT Hx HEENT Problems: No - RENAL Hx Chronic Kidney Disease: Yes Hx Kidney Stones: Yes (with stent placement) - ENDOCRINE/METABOLIC Hx Endocrine Disorders: No - HEMATOLOGICAL/ONCOLOGICAL Hx Blood Disorders: No - INTEGUMENTARY Hx Dermatological Problems: No - MUSCULOSKELETAL/RHEUMATOLOGICAL Hx Musculoskeletal Disorders: Yes Hx Osteoarthritis: Yes - GASTROINTESTINAL Hx Gastrointestinal Disorders: Yes - GENITOURINARY/GYNECOLOGICAL Hx Genitourinary Disorders: Yes Hx Prostate Problems: Yes - PSYCHIATRIC Hx Substance Use: No - SURGICAL HISTORY Hx Coronary Stent: Yes - ANESTHESIA Hx Anesthesia: Yes Hx Anesthesia Reactions: No Meds Allergies/Adverse Reactions: Allergies Allergy/AdvReac Type Severity Reaction Status Date / Time No Known Allergies Allergy Verified 09/17/17 10:26 Physical Exam - Constitutional Appears: Well, Non-toxic, No Acute Distress - Head Exam Head Exam: ATRAUMATIC, NORMOCEPHALIC - Eye Exam Eye Exam: Normal appearance. absent: Conjunctival injection, Scleral icterus - ENT Exam ENT Exam: Mucous Membranes Moist, Normal Oropharynx - Respiratory Exam Respiratory Exam: NORMAL BREATHING PATTERN. absent: Accessory Muscle Use, Respiratory Distress - Cardiovascular Exam Cardiovascular Exam: RRR - GI/Abdominal Exam GI & Abdominal Exam: Soft. absent: Distended, Tenderness - Extremities Exam Extremities exam: Negative for: calf tenderness, pedal edema, tenderness, pedal pulses present (palpable popliteal pulse on the left, non-palpable on the right , no palpable DP or PT pulses) Additional comments: feet are warm to the touch - Neurological Exam Neurological exam: Alert, Oriented x3 - Psychiatric Exam Psychiatric exam: Normal Affect, Normal Mood - Skin Skin Exam: Dry, Normal Color, Warm Results - Vital Signs Recent Vital Signs: Last Vital Signs Temp 98.0 F 09/17/17 15:00 Pulse 70 09/17/17 15:00 Resp 18 09/17/17 15:00 BP 155/76 H 09/17/17 15:00 Pulse Ox 98 09/17/17 17:51 - Labs Result Diagrams: 09/17/17 11:55 09/17/17 11:55 Labs: Laboratory Results - last 24 hr 09/17/17 09/17/17 09/17/17 11:55 11:55 11:55 WBC 5.7 RBC 4.46 Hgb 13.5 Hct 39.6 MCV 88.7 MCH 30.3 MCHC 34.2 RDW 14.4 Plt Count 169 MPV 8.1 Neut % (Auto) 69.0 Lymph % (Auto) 21.0 [place] % (Auto) 8.0 Eos % (Auto) 1.3 Baso % (Auto) 0.7 Neut # (Auto) 3.9 Lymph # (Auto) 1.2 [place] # (Auto) 0.5 Eos # (Auto) 0.1 Baso # (Auto) 0.0 PT 11.0 INR 1.0 APTT 32 Sodium 142 Potassium 4.5 Chloride 106 Carbon Dioxide 24 Anion Gap 16 BUN 25 H Creatinine 1.1 Est GFR ( Amer) > 60 Est GFR (Non-Af Amer) > 60 Random Glucose 100 Calcium 8.9 Total Bilirubin 0.9 AST 29 ALT 29 Alkaline Phosphatase 51 Total Protein 7.0 Albumin 4.0 Globulin 3.0 Albumin/Globulin Ratio 1.3 Assessment & Plan - Assessment and Plan (Free Text) Assessment: 76M with PAD of the right lower extremity with claudication Plan: -Follow up official read of the CTA--apparent occlusion of the prior graft of the right leg -F/U MILLIE/PVR -Patient needs cardiac optimazation to an appropriate risk level prior to any vascular intervention -PRN pain medication -medical management per primary Seen and discussed with Dr. Rene Glover, PGY2
[2017-09-17] MEDS ORDERED: CILOSTAZOL 100 MG PO SCH (20:30)
[2017-09-17] MEDS ORDERED: METOPROLOL SUCCINATE 50 MG PO SCH (20:30)
[2017-09-17] MEDS: Metoprolol Succinate 50 mg XL Tab PO SCH (21:20)
[2017-09-17] MEDS: Cilostazol 100 mg Tab UD PO SCH (21:20)
--- NOTE | 2017-09-17 22:17 | CP.PCM.HP ---
History of Present Illness - History of Present Illness History of Present Illness: This is a 76 y/o male patient with known history of CAD s/p PCI 9 years ago, PAD s/p R femoral artery bypass graft, HTN and hyperlipidemia who was admitted because of relatively acute onset of severe pains on the R leg on walking. He claims that he has been able to walk everywhere everyday until a few days ago when he started having some difficulty walking because of R leg and toe cramps. The cramps became progressive until he could barely walk a few meters without stopping because of pain. Pain is severe and is promptly relieved by rest. He also states that he noted some edema fn the L leg. He denies any numbness or weakness but claims that he is unable to stand the pain and he thus went to the ER for further evaluation. Patient denies any history of chest pain or shortness of breath, no orthopnea, palpitations, dizziness or syncope. Patient also admits that he has been taking his medicine including Cilostazol irregularly for a few months now. Present on Admission - Present on Admission Any Indicators Present on Admission: No Review of Systems - Review of Systems All systems: reviewed and no additional remarkable complaints except - Constitutional Constitutional: As Per HPI - Cardiovascular Cardiovascular: Pedal Edema Past Patient History - Infectious Disease Hx of Infectious Diseases: None - Past Medical History & Family History Past Medical History?: Yes Past Family History: Reviewed and not pertinent - Past Social History Smoking Status: Former Smoker Alcohol: Other (former) Drugs: Denies Home Situation {Lives}: Alone - CARDIAC Hx Cardiac Disorders: Yes (CAD, S/P PCI 9 years ago) Hx Hypercholesterolemia: Yes Hx Hypertension: Yes Hx Peripheral Vascular Disease: Yes (S/P Femoral artery bypass graft) - PULMONARY Hx Respiratory Disorders: No - NEUROLOGICAL Hx Neurological Disorder: No - HEENT Hx HEENT Problems: No - RENAL Hx Chronic Kidney Disease: Yes Hx Kidney Stones: Yes (with stent placement) - ENDOCRINE/METABOLIC Hx Endocrine Disorders: No - HEMATOLOGICAL/ONCOLOGICAL Hx Blood Disorders: No - INTEGUMENTARY Hx Dermatological Problems: No - MUSCULOSKELETAL/RHEUMATOLOGICAL Hx Musculoskeletal Disorders: Yes Hx Osteoarthritis: Yes - GASTROINTESTINAL Hx Gastrointestinal Disorders: Yes - GENITOURINARY/GYNECOLOGICAL Hx Genitourinary Disorders: Yes Hx Prostate Problems: Yes - PSYCHIATRIC Hx Psychophysiologic Disorder: No Hx Substance Use: No - SURGICAL HISTORY Hx Surgeries: Yes Hx Angiogram: Yes Hx Angioplasty: Yes Hx Cardiac Catheterization: Yes Hx Coronary Stent: Yes Hx Femoral-Popliteal Bypass Graft: Yes - ANESTHESIA Hx Anesthesia: Yes Hx Anesthesia Reactions: No Meds Allergies/Adverse Reactions: Allergies Allergy/AdvReac Type Severity Reaction Status Date / Time No Known Allergies Allergy Verified 09/17/17 10:26 Physical Exam - Constitutional Appears: No Acute Distress - Head Exam Head Exam: NORMAL INSPECTION - Eye Exam Eye Exam: Normal appearance - ENT Exam ENT Exam: Normal Exam - Neck Exam Neck exam: Positive for: Normal Inspection - Respiratory Exam Respiratory Exam: Clear to Auscultation Bilateral, NORMAL BREATHING PATTERN - Cardiovascular Exam Cardiovascular Exam: REGULAR RHYTHM, RRR, +S1, +S2 - GI/Abdominal Exam GI & Abdominal Exam: Normal Bowel Sounds, Soft - Extremities Exam Additional comments: Both feet cool to touch R worse than the left, purplish discoloration on the sides of the R 2nd and 3rd toes noted, hair growth diminished bilaterally, no dorsalis felt on the R, faint dorsalis pedis on the L. Results - Vital Signs Recent Vital Signs: Last Vital Signs Temp 97.5 F L 09/17/17 18:40 Pulse 72 09/17/17 18:40 Resp 18 09/17/17 18:40 BP 150/74 09/17/17 18:40 Pulse Ox 99 09/17/17 18:40 - Labs Result Diagrams: 09/17/17 11:55 09/17/17 11:55 Labs: Laboratory Results - last 24 hr 09/17/17 09/17/17 09/17/17 11:55 11:55 11:55 WBC 5.7 RBC 4.46 Hgb 13.5 Hct 39.6 MCV 88.7 MCH 30.3 MCHC 34.2 RDW 14.4 Plt Count 169 MPV 8.1 Neut % (Auto) 69.0 Lymph % (Auto) 21.0 [place] % (Auto) 8.0 Eos % (Auto) 1.3 Baso % (Auto) 0.7 Neut # (Auto) 3.9 Lymph # (Auto) 1.2 [place] # (Auto) 0.5 Eos # (Auto) 0.1 Baso # (Auto) 0.0 PT 11.0 INR 1.0 APTT 32 Sodium 142 Potassium 4.5 Chloride 106 Carbon Dioxide 24 Anion Gap 16 BUN 25 H Creatinine 1.1 Est GFR ( Amer) > 60 Est GFR (Non-Af Amer) > 60 Random Glucose 100 Calcium 8.9 Total Bilirubin 0.9 AST 29 ALT 29 Alkaline Phosphatase 51 Total Protein 7.0 Albumin 4.0 Globulin 3.0 Albumin/Globulin Ratio 1.3 Assessment & Plan (1) Occlusion of arterial bypass graft Assessment and Plan: Vascular consultation requested. CTA done and showed completely occluded graft R. Will start on Heparin drip until surgery is scheduled Status: Acute Priority: High (2) Prerenal azotemia Assessment and Plan: Elevated BUN maybe due to mild dehydration. Will also start on IVF infusion. Status: Acute Priority: Medium (3) CAD, multiple vessel Assessment and Plan: S/P coronary stents 9 years ago. to continue all meds for same. Will get echocardiogram to check LV function. Status: Chronic Priority: Medium (4) Hypertension Assessment and Plan: Slightly elevated. To restart back on antiypertensive meds Status: Chronic Priority: Medium (5) Hyperlipidemia Assessment and Plan: to continue with Rosuvastatin. Status: Chronic Priority: Medium Decision To Admit - Pt Status Changed To: Hospital Disposition Of: Inpatient - Admit Certification Admit to Inpatient:: After my assessment, the patient will require hospitalization for at least two midnights. This is because of the severity of symptoms shown, intensity of services needed, and/or the medical risk in this patient being treated as an outpatient. - InPatient: Physician Admission Certification:: After my assessment, the patient will require hospitalization for at least two midnights. This is because of the severity of symptoms shown, intensity of services needed, and/or the medical risk in this patient being treated as an outpatient. - . Bed Request Type: Regular Admitting Physician: Chrissie Colvin
[2017-09-17] MEDS: Dextrose 5%/0.45% NS 1,000 ML IV SCH (22:31)
[2017-09-17] MEDS: Heparin25000 units/250ml 1/2NS 25,000 UNITS/250 ML BAG IV PRN (22:32)
[2017-09-18 04:40] LABS: BASO # 0.1 K/uL (0.0-0.2); EOS # 0.1 K/uL (0.0-0.7); EOS % 2.5 % (0.0-4.0); HEMOGLOBIN 12.6 g/dL (12.0-18.0); LYMPH # 1.4 K/uL (1.0-4.3); LYMPH % 26.9 % (20.0-40.0); MEAN CELL VOLUME 87.3 fL (80.0-94.0); MEAN CORPUSCULAR HEMOGLOBIN 30.1 pg (27.0-31.0); MEAN CORPUSCULAR HGB CONC 34.5 g/dL (33.0-37.0); MEAN PLATELET VOLUME 7.5 fL (7.2-11.7); MONO # 0.6 K/uL (0.0-0.8); MONO % 10.8 % (0.0-10.0); NEUT # 3.1 K/uL (1.8-7.0); NEUT % 58.8 % (50.0-75.0); NRBC % 0.1 % (0.0-2.0); RBC 4.18 Mil/uL (4.40-5.90); RED CELL DISTRIBUTION WIDTH 14.2 % (11.5-14.5); WHITE BLOOD COUNT 5.2 K/uL (4.8-10.8)
[2017-09-18 05:02] LABS: LDL CHOLESTEROL 105 mg/dL (0-129)
[2017-09-18 05:14] LABS: BLOOD UREA NITROGEN 19 mg/dL (9-20); CALCIUM 8.4 mg/dl (8.6-10.4); GFR AFRICAN-AMERICAN > 60; GFR NON-AFRICAN AMERICAN 54; HDL CHOLESTEROL 43 mg/dL (30-70)
[2017-09-18 06:07] LABS: FREE T4 1.09 ng/dL (0.78-2.19)
--- NOTE | 2017-09-18 09:09 | VASCLAB ---
PROCEDURE: Lower Extremity Venous Duplex Exam. HISTORY: RLE calf pain, LLE swelling PRIORS: None. TECHNIQUE: Bilateral common femoral, femoral, popliteal and posterior tibial, peroneal and great saphenous veins were evaluated. Flow was assessed with color Doppler, compressibility, assessment of phasic flow and augmentation response. Report prepared by Fish Anguiano, CHIP, RVT FINDINGS: RIGHT: 1. Common Femoral Vein: 1.1. Compressibility - Fully compressible: Thrombus - None : Flow - Phasic: Augmentation -Normal: Reflux - None. 2. Femoral Vein: 2.1. Compressibility - Fully compressible: Thrombus - None : Flow - Phasic: Augmentation -Normal: Reflux - None. 3. Popliteal Vein: 3.1. Compressibility - Fully compressible: Thrombus - None : Flow - Phasic: Augmentation -Normal: Reflux - None. 4. Posterior Tibial Vein: 4.1. Compressibility - Fully compressible: Thrombus - None: Flow - Phasic: Augmentation -Normal: Reflux - None. 5. Peroneal Vein: 5.1. Compressibility - Fully compressible: Thrombus - None: Flow - Phasic: Augmentation -Normal: Reflux - None. 6. Great Saphenous Vein: 6.1. Compressibility - Fully compressible: Thrombus - None: Flow - Phasic: Augmentation - Normal: Reflux - None. LEFT: 1. Common Femoral Vein: 1.1. Compressibility - Fully compressible: Thrombus - None: Flow - Phasic: Augmentation -Normal: Reflux - None. 2. Femoral Vein: 2.1. Compressibility - Fully compressible: Thrombus - None: Flow - Phasic: Augmentation -Normal: Reflux - None. 3. Popliteal Vein: 3.1. Compressibility - Fully compressible: Thrombus - None : Flow - Phasic: Augmentation -Normal: Reflux - None. 4. Posterior Tibial Vein: 4.1. Compressibility - Fully compressible: Thrombus - None: Flow - Phasic: Augmentation -Normal: Reflux - None. 5. Peroneal Vein: 5.1. Compressibility - Fully compressible: Thrombus - None: Flow - Phasic: Augmentation -Normal: Reflux - None. 6. Great Saphenous Vein: 6.1. Compressibility - : Thrombus - : Flow - : Augmentation - : Reflux - . OTHER FINDINGS: Right: None significant. Left: The left greater saphenous vein has been previously removed. IMPRESSION: Right: No evidence of deep or superficial vein thrombosis of the right lower extremity. Normal valve function noted of the right side. Left: No evidence of deep or superficial vein thrombosis of the left lower extremity. Normal valve function noted of the left side.
--- NOTE | 2017-09-18 09:10 | VASCLAB ---
PROCEDURE: HISTORY: right LE claudication from 2 days ago, h/o LLE PAD COMPARISON: None available. TECHNIQUE: Grayscale and duplex Doppler evaluation of the right common femoral, femoral, profunda femoral, popliteal, posterior tibial, anterior tibial and dorsalis pedis arteries was performed. Report prepared by CHIP Cordoba, RVT FINDINGS: RIGHT LOWER EXTREMITY: * Common Femoral Artery: Peak Systolic Velocity - 79: Doppler Waveform: Biphasic: Plaque description - * Profunda Femoral Artery: Peak Systolic Velocity - : Doppler Waveform: : Plaque description - * Femoral Artery o Proximal Segment: Peak Systolic Velocity - : Doppler Waveform: : Plaque description - o Middle Segment: Peak Systolic Velocity - : Doppler Waveform: : Plaque description - o Distal Segment: Peak Systolic Velocity - : Doppler Waveform: : Plaque description - * Popliteal Artery o Proximal Segment: Peak Systolic Velocity - 12: Doppler Waveform: Monophasic: Plaque description - o Middle Segment: Peak Systolic Velocity - 28: Doppler Waveform: Monophasic: Plaque description - o Distal Segment: Peak Systolic Velocity - 24: Doppler Waveform: Monophasic: Plaque description - * Posterior Tibial Artery: Peak Systolic Velocity - 0: Doppler Waveform: Monophasic: Plaque description - * Anterior Tibial Artery: Peak Systolic Velocity - 21: Doppler Waveform: Monophasic: Plaque description - * Dorsalis Pedis Artery: Peak Systolic Velocity - 13: Doppler Waveform: Monophasic: Plaque description - OTHER FINDINGS: BARBIE Pemberton notified about the findings. 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
[2017-09-18] MEDS: Cilostazol 100 mg Tab UD PO SCH (10:00)
[2017-09-18] MEDS: Metoprolol Succinate 50 mg XL Tab PO SCH ×2 (10:00→17:47)
[2017-09-18] MEDS: Dextrose 5%/0.45% NS 1,000 ML IV SCH ×3 (10:04→18:06)
--- NOTE | 2017-09-18 16:08 | CP.PCM.PN ---
Subjective - Date & Time of Evaluation Date of Evaluation: 09/18/17 Time of Evaluation: 16:02 - Subjective Subjective: PGY-1 surgery progress note for Dr López. No acute events noted overnight. Denies any pain at rest. Patient denies any numbness, wounds, pale or cold feet, chest pain, SOB, imbalance, or any other symptoms. Objective - Vital Signs/Intake and Output Vital Signs (last 24 hours): Temp Pulse Resp BP Pulse Ox 97.5 F L 86 20 130/66 96 09/18/17 15:42 09/18/17 15:42 09/18/17 15:42 09/18/17 15:42 09/18/17 15:42 Intake and Output: 09/18/17 09/18/17 06:59 18:59 Intake Total 740 147.5 Balance 740 147.5 - Medications Medications: Current Medications Cilostazol (Pletal) 100 mg PO BID [facility] Last Admin: 09/18/17 10:00 Dose: 100 mg Cyanocobalamin (Vitamin B12 1000 Mcg Tab) 2,000 mcg PO DAILY [facility] Last Admin: 09/18/17 10:00 Dose: 2,000 mcg Dextrose/Sodium Chloride (Dextrose 5%/0.45% Ns 1000 Ml) 1,000 mls @ 80 mls/hr IV .[id number] [facility] Last Admin: 09/18/17 14:34 Dose: 80 mls/hr Heparin Sodium/Sodium Chloride (Heparin 15727 Units/250ml 1/2 Normal Saline) 25 ,000 units in 250 mls @ 13.472 mls/hr IV .[id number] PRN; Protocol; 18 UNITS/KG/HR PRN Reason: PROTOCOL Last Titration: 09/18/17 12:19 Dose: 15 units/kg/hr, 11.226 mls/hr Losartan Potassium (Cozaar) 100 mg PO DAILY [facility] Last Admin: 09/18/17 10:00 Dose: 100 mg Metoprolol Succinate (Toprol Xl) 50 mg PO BID [facility] Last Admin: 09/18/17 10:00 Dose: 50 mg Rosuvastatin Calcium (Crestor) 5 mg PO HS [facility] Last Admin: 09/17/17 21:20 Dose: 5 mg - Labs Labs: 09/18/17 04:37 09/18/17 04:37 PT 11.0 SECONDS (9.7-12.2) 09/17/17 11:55 INR 1.0 09/17/17 11:55 APTT 103 SECONDS (21-34) H* D 09/18/17 10:46 - Additional Findings Additional findings: - Constitutional Appears: Well, Non-toxic, No Acute Distress - Head Exam Head Exam: ATRAUMATIC, NORMOCEPHALIC - Eye Exam Eye Exam: Normal appearance. absent: Conjunctival injection, Scleral icterus - ENT Exam ENT Exam: Mucous Membranes Moist, Normal Oropharynx - Respiratory Exam Respiratory Exam: NORMAL BREATHING PATTERN. absent: Accessory Muscle Use, Respiratory Distress - Cardiovascular Exam Cardiovascular Exam: RRR - GI/Abdominal Exam GI & Abdominal Exam: Soft. absent: Distended, Tenderness - Extremities Exam Extremities exam: Negative for: calf tenderness, pedal edema, tenderness, pedal pulses present (palpable popliteal pulse on the left, non-palpable on the right , no palpable DP or PT pulses) Additional comments: feet are warm to the touch - Neurological Exam Neurological exam: Alert, Oriented x3 - Psychiatric Exam Psychiatric exam: Normal Affect, Normal Mood - Skin Skin Exam: Dry, Normal Color, Warm Assessment and Plan - Assessment and Plan (Free Text) Assessment: 76M with PAD of the right lower extremity with claudication Plan: -CTA--occlusion of the prior graft of the right leg (see full impression included below) -Patient needs cardiac optimazation to an appropriate risk level prior to any vascular intervention * Dr Grimm to provide cardiac clearance -If cleared by cardiology, plan for OR Saturday09/20/17 -PRN pain medication -medical management per primary -CTA: * 1. 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 An occluded right SFA is identified most origin with limited reconstitution a few cm proximal to the popliteal artery. * 2. Two-vessel runoff below the right knee. Severely diseased right posterior tibial artery. * 3. Moderate distal PHOTOGRAPH MOUNTER stenosis. The left SFA is patent from origin to the popliteal artery however a moderate origin stenosis identified with high-grade distal SFA stenosis at the adductor canal level. * 4. 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 * 5. Multiple hepatic lucencies are appreciated with one exhibiting peripheral nodular enhancement. Follow-up MRI is advised with and without contrast for accurate characterization. Plays is not excluded.
--- NOTE | 2017-09-18 17:46 | CP.PCM.PN ---
Subjective - Date & Time of Evaluation Date of Evaluation: 09/18/17 Time of Evaluation: 17:30 - Subjective Subjective: -Patient lying comfortably in bed, no rest pain, no complaint -had walked short distance earlier today and claimed leg felt better -no shortness of breath, no chest discomfort -arterial duplex scan and CTA of the lower extremities reports noted -EKG done- WNL -Echocardiogram reviewed- borderline dilated LA, LVH normal size with normal wall motion and systolic function with EF >70% -mild TR, AR, mild to moderate MR, normal diastolic function Objective - Vital Signs/Intake and Output Vital Signs (last 24 hours): Temp Pulse Resp BP Pulse Ox 97.5 F L 86 20 130/66 96 09/18/17 15:42 09/18/17 15:42 09/18/17 15:42 09/18/17 15:42 09/18/17 15:42 Intake and Output: 09/18/17 09/18/17 06:59 18:59 Intake Total 740 147.5 Balance 740 147.5 - Medications Medications: Current Medications Cilostazol (Pletal) 100 mg PO BID [facility] Last Admin: 09/18/17 10:00 Dose: 100 mg Cyanocobalamin (Vitamin B12 1000 Mcg Tab) 2,000 mcg PO DAILY [facility] Last Admin: 09/18/17 10:00 Dose: 2,000 mcg Heparin Sodium/Sodium Chloride (Heparin 01395 Units/250ml 1/2 Normal Saline) 25 ,000 units in 250 mls @ 13.472 mls/hr IV .[id number] PRN; Protocol; 18 UNITS/KG/HR PRN Reason: PROTOCOL Last Titration: 09/18/17 12:19 Dose: 15 units/kg/hr, 11.226 mls/hr Losartan Potassium (Cozaar) 100 mg PO DAILY [facility] Last Admin: 09/18/17 10:00 Dose: 100 mg Metoprolol Succinate (Toprol Xl) 50 mg PO BID [facility] Last Admin: 09/18/17 10:00 Dose: 50 mg Rosuvastatin Calcium (Crestor) 5 mg PO HS [facility] Last Admin: 09/17/17 21:20 Dose: 5 mg - Labs Labs: 09/18/17 04:37 09/18/17 04:37 PT 11.0 SECONDS (9.7-12.2) 09/17/17 11:55 INR 1.0 09/17/17 11:55 APTT 77 SECONDS (21-34) H D 09/18/17 16:52 - Constitutional Appears: No Acute Distress - Head Exam Head Exam: NORMAL INSPECTION - Eye Exam Eye Exam: Normal appearance - Neck Exam Neck Exam: Normal Inspection - Respiratory Exam Respiratory Exam: Clear to Ausculation Bilateral, NORMAL BREATHING PATTERN - Cardiovascular Exam Cardiovascular Exam: REGULAR RHYTHM, +S1, +S2 - GI/Abdominal Exam GI & Abdominal Exam: Soft, Normal Bowel Sounds - Extremities Exam Additional comments: -both feet warm to touch though toes are slightly cool to touch - no edema, no calf tenderness noted - Neurological Exam Neurological Exam: Alert, Awake, Oriented x3 - Psychiatric Exam Psychiatric exam: Normal Affect, Normal Mood - Skin Skin Exam: Normal Color Assessment and Plan (1) Peripheral arterial disease Assessment & Plan: -arterial duplex scan and CTA showed complete occlusion of the graft at the distal anastomosis -on heparin with therapeutic PTT -scheduled for surgery on Saturday Status: Acute (2) Occlusion of arterial bypass graft Assessment & Plan: as above stated Status: Acute (3) Prerenal azotemia Assessment & Plan: BUN/creat back to normal. Will decrease IVF Status: Resolved (4) CAD, multiple vessel Assessment & Plan: -patient asymptomatic. Denies any chest pain or SOB. no orthopnea or PND -EKG- NSR, WNL -Echocardiogram reviewed- shows normal size LV with normal EF- >70%, no wall motion abnormality noted. TR, MR and AR noted -Continue current meds. -Patient in stable cardiovascular condition at this time Status: Chronic (5) Hypertension Assessment & Plan: controlled on current meds Status: Chronic (6) Hyperlipidemia Assessment & Plan: controlled on current med Status: Chronic
[2017-09-18] MEDS: Heparin25000 units/250ml 1/2NS 25,000 UNITS/250 ML BAG IV PRN (21:13)
--- NOTE | 2017-09-19 09:53 | CP.PCM.PN ---
Subjective - Date & Time of Evaluation Date of Evaluation: 09/19/17 Time of Evaluation: 06:40 - Subjective Subjective: Patient seen and examined at bedside this AM. No adverse events overnight. Patient states that his right leg feels better than when he arrived with no difficulty ambulating in the hospital Objective - Vital Signs/Intake and Output Vital Signs (last 24 hours): Temp Pulse Resp BP Pulse Ox 97.7 F 70 18 128/78 97 09/19/17 07:02 09/19/17 07:02 09/19/17 07:02 09/19/17 07:02 09/19/17 07:02 Intake and Output: 09/19/17 09/19/17 06:59 18:59 Intake Total 181.5 Output Total 1650 Balance -1468.5 - Medications Medications: Current Medications Cilostazol (Pletal) 100 mg PO BID [facility] Last Admin: 09/18/17 10:00 Dose: 100 mg Cyanocobalamin (Vitamin B12 1000 Mcg Tab) 2,000 mcg PO DAILY [facility] Last Admin: 09/18/17 10:00 Dose: 2,000 mcg Heparin Sodium/Sodium Chloride (Heparin 64005 Units/250ml 1/2 Normal Saline) 25 ,000 units in 250 mls @ 13.472 mls/hr IV .[id number] PRN; Protocol; 18 UNITS/KG/HR PRN Reason: PROTOCOL Last Admin: 09/18/17 21:13 Dose: 15 units/kg/hr, 11.226 mls/hr Dextrose/Sodium Chloride (Dextrose 5%/0.45% Ns 1000 Ml) 1,000 mls @ 50 mls/hr IV .Q20H [facility] Last Admin: 09/18/17 18:06 Dose: Not Given Losartan Potassium (Cozaar) 100 mg PO DAILY [facility] Last Admin: 09/18/17 10:00 Dose: 100 mg Metoprolol Succinate (Toprol Xl) 50 mg PO BID [facility] Last Admin: 09/18/17 17:47 Dose: 50 mg Rosuvastatin Calcium (Crestor) 5 mg PO HS [facility] Last Admin: 09/18/17 21:38 Dose: 5 mg - Labs Labs: 09/18/17 04:37 09/18/17 04:37 PT 11.0 SECONDS (9.7-12.2) 09/17/17 11:55 INR 1.0 09/17/17 11:55 APTT 90 SECONDS (21-34) H D 09/18/17 23:00 - Constitutional Appears: Well, Non-toxic, No Acute Distress - Head Exam Head Exam: ATRAUMATIC, NORMOCEPHALIC - Eye Exam Eye Exam: Normal appearance. absent: Conjunctival injection, Scleral icterus - ENT Exam ENT Exam: Mucous Membranes Moist, Normal Oropharynx - Respiratory Exam Respiratory Exam: NORMAL BREATHING PATTERN. absent: Accessory Muscle Use, Respiratory Distress - GI/Abdominal Exam GI & Abdominal Exam: absent: Distended - Extremities Exam Extremities Exam: absent: Calf Tenderness, Pedal Edema, Tenderness - Neurological Exam Neurological Exam: Alert, Awake, Oriented x3 - Psychiatric Exam Psychiatric exam: Normal Affect, Normal Mood - Skin Skin Exam: Dry, Intact, Normal Color, Warm Assessment and Plan - Assessment and Plan (Free Text) Assessment: 76M with PAD and claudication of the right lower extremity Plan: OR on Saturday for bypass graft of the right lower extremity PRN pain medication NPO after midnight AM CBC and BMP Medical management per primary--awaiting documentation of cardiac risk assessment for procedure Discussed with Dr. Rene Glover, PGY2
[2017-09-19] MEDS: Metoprolol Succinate 50 mg XL Tab PO SCH ×2 (09:57→17:16)
[2017-09-19] MEDS: Dextrose 5%/0.45% NS 1,000 ML IV SCH (10:13)
--- NOTE | 2017-09-19 12:24 | CARD ---
APPROVED REPORT EXAM: Two-dimensional and M-mode echocardiogram with Doppler and color Doppler. Other Information Quality : GoodRhythm : INDICATION Cardiac Disease: CAD Chest Pain RISK FACTORS Hypertension Hyperlipidemia 2D DIMENSIONS IVSd0.9 (0.7-1.1cm)LVDd4.7 (3.9-5.9cm) PWd1.2 (0.7-1.1cm)LVDs2.5 (2.5-4.0cm) FS (%) 46.0 %LVEF (%)70.0 (>50%) M-Mode DIMENSIONS Left Atrium (MM)4.02 (2.5-4.0cm)Aortic Root4.05 (2.2-3.7cm) Aortic Cusp Exc.2.68 (1.5-2.0cm) Aortic Valve AI P 1/2 [id number] Mitral Valve MV E Lkopvrno95.2cm/sMV A Jduetiad56.2cm/sE/A ratio1.4 TDI E/Lateral E'0.0E/Medial E'0.0 Tricuspid Valve TR Peak Fqhmlfxt833cr/sTR Peak Gr.33mmHg LEFT VENTRICLE The left ventricle is normal size. There is normal left ventricular wall thickness. The left ventricular function is normal. The left ventricular ejection fraction is within the normal range. There is normal LV segmental wall motion. The left ventricular diastolic function is normal. No left ventricle thrombus noted on this study. There is no ventricular septal defect visualized. There is no left ventricular aneurysm. There is no mass noted in the left ventricle. RIGHT VENTRICLE The right ventricle is normal size. There is normal right ventricular wall thickness. The right ventricular systolic function is normal. ATRIA The left atrium size is normal. The right atrium size is normal. The interatrial septum is intact with no evidence for an atrial septal defect. AORTIC VALVE The aortic valve is normal in structure. There is mild aortic regurgitation. There is no aortic valvular stenosis. There is no aortic valvular vegetation. MITRAL VALVE The mitral valve is normal in structure. There is no mitral valve stenosis. There is no mitral valve regurgitation noted. TRICUSPID VALVE The tricuspid valve is normal in structure. PULMONIC VALVE The pulmonary valve is normal in structure. There is no pulmonic valvular regurgitation. GREAT VESSELS The aortic root is normal in size. The ascending aorta is normal in size. The pulmonary artery is normal. The IVC is normal in size and collapses >50% with inspiration. PERICARDIAL EFFUSION There is no pericardial effusion. <Conclusion> There is mild aortic regurgitation. LVEF IS 70%. OTHERWISE NORMAL STUDY.
--- NOTE | 2017-09-19 13:06 | CP.PCM.PN ---
Subjective - Date & Time of Evaluation Date of Evaluation: 09/19/16 Time of Evaluation: 12:45 - Subjective Subjective: -Patient feeling well, no complaints. No leg pain, no numbness on the feet, ambulated in the hallways and felt good -no chest pain, no shortness of breath, no dizziness -VS stable. Recent labs noted. EKG and echo noted and- reviewed. -Patient in stable cardiovascular condition at this time. Optimized for planned surgery tomorrow. -Patient understands and agreeable to have the procedure done. Objective - Vital Signs/Intake and Output Vital Signs (last 24 hours): Temp Pulse Resp BP Pulse Ox 97.7 F 70 18 128/78 97 09/19/17 07:02 09/19/17 07:02 09/19/17 07:02 09/19/17 07:02 09/19/17 07:02 Intake and Output: 09/19/17 09/19/17 06:59 18:59 Intake Total 181.5 Output Total 1650 Balance -1468.5 - Medications Medications: Current Medications Cilostazol (Pletal) 100 mg PO BID [facility] Last Admin: 09/18/17 10:00 Dose: 100 mg Cyanocobalamin (Vitamin B12 1000 Mcg Tab) 2,000 mcg PO DAILY [facility] Last Admin: 09/19/17 09:50 Dose: 2,000 mcg Heparin Sodium/Sodium Chloride (Heparin 96565 Units/250ml 1/2 Normal Saline) 25 ,000 units in 250 mls @ 13.472 mls/hr IV .[id number] PRN; Protocol; 18 UNITS/KG/HR PRN Reason: PROTOCOL Last Admin: 09/18/17 21:13 Dose: 15 units/kg/hr, 11.226 mls/hr Dextrose/Sodium Chloride (Dextrose 5%/0.45% Ns 1000 Ml) 1,000 mls @ 50 mls/hr IV .Q20H [facility] Last Admin: 09/19/17 10:13 Dose: 50 mls/hr Losartan Potassium (Cozaar) 100 mg PO DAILY [facility] Last Admin: 09/19/17 09:49 Dose: 100 mg Metoprolol Succinate (Toprol Xl) 50 mg PO BID [facility] Last Admin: 09/19/17 09:57 Dose: 50 mg Rosuvastatin Calcium (Crestor) 5 mg PO HS [facility] Last Admin: 09/18/17 21:38 Dose: 5 mg - Labs Labs: 09/18/17 04:37 09/18/17 04:37 PT 11.0 SECONDS (9.7-12.2) 09/17/17 11:55 INR 1.0 09/17/17 11:55 APTT 90 SECONDS (21-34) H D 09/18/17 23:00 - Constitutional Appears: No Acute Distress - Head Exam Head Exam: NORMAL INSPECTION - Eye Exam Eye Exam: Normal appearance - ENT Exam ENT Exam: Normal Exam - Respiratory Exam Respiratory Exam: Clear to Ausculation Bilateral, NORMAL BREATHING PATTERN - Cardiovascular Exam Cardiovascular Exam: REGULAR RHYTHM, RRR, +S1, +S2 - GI/Abdominal Exam GI & Abdominal Exam: Soft, Normal Bowel Sounds - Extremities Exam Additional comments: -legs and feet are warm to touch, no change in color noted, dorsalis pedis faint on the L. not felt on the R Assessment and Plan (1) Peripheral arterial disease Assessment & Plan: scheduled for femoral bypass surgery tomorrow. Patient in stable cardiovascular condition at this time and optimized for the same. Status: Acute (2) Occlusion of arterial bypass graft Assessment & Plan: no change Status: Acute (3) Prerenal azotemia Status: Resolved (4) CAD, multiple vessel Assessment & Plan: stable. no cardiac complaints at this time. Status: Chronic (5) Hypertension Assessment & Plan: controlled Status: Chronic (6) Hyperlipidemia Assessment & Plan: controlled on current med Status: Chronic
--- NOTE | 2017-09-19 14:53 | CARD ---
APPROVED REPORT EKG Measurement Heart [id number] <Conclusion> Normal sinus rhythm Normal ECG
--- NOTE | 2017-09-19 14:58 | VASCLAB ---
PROCEDURE: Right Lower Extremity Vein mapping. HISTORY: pre op bypass right leg PRIORS: None. TECHNIQUE: Right common femoral, femoral, popliteal and posterior tibial, peroneal and great saphenous veins were evaluated. Flow was assessed with color Doppler, compressibility, assessment of phasic flow and augmentation response. Report prepared by CHIP Cordoba, RVT FINDINGS: RIGHT: 1. Common Femoral Vein: Compressibility - Fully compressible: Thrombus - None : Flow - Phasic: Augmentation -Normal: Reflux - None. 2. Femoral Vein:Compressibility - Fully compressible: Thrombus - None 3. Popliteal Vein: Compressibility - Fully compressible: Thrombus - None 4. Posterior Tibial Vein: Compressibility - Fully compressible: Thrombus - None 5. Peroneal Vein:Compressibility - Fully compressible: Thrombus - None 6. Greater Saphenous Vein: Compressibility - Fully compressible: Thrombus - None 6.1. Thigh - Proximal Diameter: 0.90cm. Mid Diameter: 0.49cm. Distal Diameter: 0.42cm. Knee - Diameter 0.31cm 7. 7.1. Calf - Proximal Diameter: 0.35cm. Mid Diameter:0.25cm. Distal Diameter: 0.23cm 7.2. Ankle - Diameter: 0.24cm 8. [place] Saphenous Vein: Compressibility - Fully compressible: thrombus - None 8.1. Knee - Diameter 0.41cm 8.2. Calf - Proximal Diameter: 0.38cm. Mid Diameter: 0.31cm. Distal Diameter: 0.39cm. 8.3. Ankle - Diameter: 0.29cm OTHER FINDINGS: LEFT. [place] Saphenous Vein: Compressibility - Fully compressible: thrombus - None * Knee - Diameter 0.52cm Calf - Proximal Diameter: 0.34cm. Mid Diameter: 0.35cm. Distal Diameter: 0.30cm. Ankle - Diameter: 0.29cm IMPRESSION: RIGHT: Diameter measurements of the right greater saphenous vein are measured between 0.23 cm and 0.90 cm and lesser saphenous vein is measured between 0.29 cm and 0.41 cm. LEFT: Lesser saphenous vein is measured between 0.29 cm and 0.52 cm.
[2017-09-19] MEDS: Heparin25000 units/250ml 1/2NS 25,000 UNITS/250 ML BAG IV PRN (21:13)
[2017-09-19 23:08] LABS: HEMOGLOBIN 13.3 g/dL (12.0-18.0); MEAN CELL VOLUME 86.8 fL (80.0-94.0); MEAN CORPUSCULAR HEMOGLOBIN 30.3 pg (27.0-31.0); MEAN CORPUSCULAR HGB CONC 34.9 g/dL (33.0-37.0); RBC 4.4 Mil/uL (4.40-5.90); RED CELL DISTRIBUTION WIDTH 14.5 % (11.5-14.5); WHITE BLOOD COUNT 4.7 K/uL (4.8-10.8)
[2017-09-20 07:26] LABS: BASO # 0.1 K/uL (0.0-0.2); EOS # 0.2 K/uL (0.0-0.7); HEMOGLOBIN 13.1 g/dL (12.0-18.0); LYMPH # 1.3 K/uL (1.0-4.3); LYMPH % 24.4 % (20.0-40.0); MEAN CORPUSCULAR HEMOGLOBIN 30.7 pg (27.0-31.0); MEAN CORPUSCULAR HGB CONC 35.2 g/dL (33.0-37.0); MEAN PLATELET VOLUME 8.3 fL (7.2-11.7); MONO # 0.6 K/uL (0.0-0.8); NEUT # 3.2 K/uL (1.8-7.0); NEUT % 60.6 % (50.0-75.0); NRBC % 0.1 % (0.0-2.0); RBC 4.29 Mil/uL (4.40-5.90); RED CELL DISTRIBUTION WIDTH 14.7 % (11.5-14.5); WHITE BLOOD COUNT 5.3 K/uL (4.8-10.8)
[2017-09-20 07:39] LABS: ALB/GLOB RATIO 1.2 (1.0-2.1); ALBUMIN 3.4 g/dL (3.5-5.0); ALT/SGPT 13 U/L (21-72); AST/SGOT 17 U/L (17-59); BLOOD UREA NITROGEN 14 mg/dL (9-20); CALCIUM 8.5 mg/dl (8.6-10.4); GFR AFRICAN-AMERICAN > 60; GFR NON-AFRICAN AMERICAN > 60
[2017-09-20] MEDS: Dextrose 5%/0.45% NS 1,000 ML IV SCH (09:58)
[2017-09-20] MEDS: Metoprolol Succinate 50 mg XL Tab PO SCH ×2 (10:33→18:07)
[2017-09-20] MEDS ORDERED: HEPARIN-NS 5,000 UNITS/500 ML 10,000 UNIT/1,000 ML BAG IV ONE (11:38)
[2017-09-20] MEDS ORDERED: Iodixanol 320 MG/ML 200 ML BOTTLE IV ONE (11:39)
[2017-09-20] MEDS ORDERED: Sodium Chloride 0.9% 20 ML IV ONE (11:40)
[2017-09-20] MEDS: ceFAZolin 1 gm in NS 1 GM/100 ML BAG IVPB ONE ×2 (11:45→12:45)
[2017-09-20] MEDS ORDERED: Propofol 10 mg/ml Inj (20 ML) ONE (12:00)
[2017-09-20] MEDS ORDERED: Lactated Ringer's 1,000 ML IV ONE ×2 (12:35)
[2017-09-20] MEDS ORDERED: Morphine 4 MG/ML VIAL IVP PRN (12:58)
--- NOTE | 2017-09-20 15:07 | RAD ---
PROCEDURE: Fluoroscopy up to 1 hr. HISTORY: RT.FEM POP COMPARISON: None TECHNIQUE: Standard protocol for this study/examination. FINDINGS: Total fluoroscopic time (continuous mode) utilized during the procedure 39.0 (seconds). IMPRESSION: Less than 1 hr fluoroscopic time utilized during performance of the procedure.
--- NOTE | 2017-09-20 15:42 | PCM.SURG1 ---
Surgeon's Initial Post Op Note - Surgeon's Notes Surgeon: Dr. López Relationship Executive: Serena Vicente, PGY-1 Type of Anesthesia: General Endo Pre-Operative Diagnosis: Occlusion of Right femoral artery, peripheral vascular disease Operative Findings: See op report Post-Operative Diagnosis: Occlusion of Right femoral artery, peripheral vascular disease Operation Performed: Right lower extremity femoral-popliteal bypass with cryovein and intra-operative arteriogram Specimen/Specimens Removed: None Estimated Blood Loss: EBL {In ML}: 300 Blood Products Given: N/A Drains Used: No Drains Post-Op Condition: Good Date of Surgery/Procedure: 09/20/17 Time of Surgery/Procedure: 15:42
[2017-09-20] MEDS: Morphine 4 MG/ML VIAL IVP PRN ×2 (16:15→17:04)
[2017-09-20] MEDS ORDERED: Morphine 4 MG/ML VIAL ONE ×2 (16:16→17:05)
--- NOTE | 2017-09-20 16:17 | CP.PCM.CON ---
<Logan Gilbert - Last Filed: 09/20/17 17:04> Meds Allergies/Adverse Reactions: Allergies Allergy/AdvReac Type Severity Reaction Status Date / Time No Known Allergies Allergy Verified 09/17/17 10:26 - Medications Medications: Current Medications Aspirin (Aspirin Chewable) 81 mg PO DAILY [facility] Clopidogrel Bisulfate (Plavix) 75 mg PO DAILY [facility] Cyanocobalamin (Vitamin B12 1000 Mcg Tab) 2,000 mcg PO DAILY [facility] Last Admin: 09/20/17 09:58 Dose: Not Given Hydromorphone/Sodium Chloride (Dilaudid L[place] Planer) 0.2 mg IV Q4H PRN; Protocol PRN Reason: Pain, moderate (4-7) Heparin Sodium/Sodium Chloride (Heparin 55225 Units/250ml 1/2 Normal Saline) 25 ,000 units in 250 mls @ 13.472 mls/hr IV .[id number] PRN; Protocol; 18 UNITS/KG/HR PRN Reason: PROTOCOL Last Admin: 09/19/17 21:13 Dose: 15 units/kg/hr, 11.226 mls/hr Dextrose/Sodium Chloride (Dextrose 5%/0.45% Ns 1000 Ml) 1,000 mls @ 50 mls/hr IV .Q20H [facility] Last Admin: 09/20/17 09:58 Dose: Not Given Losartan Potassium (Cozaar) 100 mg PO DAILY [facility] Last Admin: 09/20/17 10:33 Dose: 100 mg Metoprolol Succinate (Toprol Xl) 50 mg PO BID [facility] Last Admin: 09/20/17 10:33 Dose: 50 mg Morphine Sulfate (Morphine) 1 mg IVP Q10M PRN PRN Reason: Pain, severe (8-10) Stop: 09/20/17 17:46 Last Admin: 09/20/17 16:15 Dose: 1 mg Ondansetron HCl (Zofran Inj) 4 mg IVP ONCE PRN PRN Reason: Nausea/Vomiting Stop: 09/20/17 17:47 Rosuvastatin Calcium (Crestor) 5 mg PO HS [facility] Last Admin: 09/19/17 21:04 Dose: 5 mg Results - Vital Signs Recent Vital Signs: Last Vital Signs Temp 97.2 F L 09/20/17 15:40 Pulse 79 09/20/17 16:45 Resp 10 L 09/20/17 16:45 BP 142/80 09/20/17 16:45 Pulse Ox 100 09/20/17 16:45 - Labs Result Diagrams: 09/20/17 06:59 09/20/17 06:59 Labs: Laboratory Results - last 24 hr 09/19/17 09/19/17 09/20/17 23:03 23:03 06:59 WBC 4.7 L 5.3 RBC 4.40 4.29 L Hgb 13.3 13.1 Hct 38.2 37.3 MCV 86.8 87.0 MCH 30.3 30.7 MCHC 34.9 35.2 RDW 14.5 14.7 H Plt Count 167 165 Manual Plt Count 176 MPV 8.0 8.3 Neut % (Auto) 60.6 Lymph % (Auto) 24.4 Pettis % (Auto) 11.0 H Eos % (Auto) 3.0 Baso % (Auto) 1.0 Neut # (Auto) 3.2 Lymph # (Auto) 1.3 Pettis # (Auto) 0.6 Eos # (Auto) 0.2 Baso # (Auto) 0.1 APTT 84 H D Sodium Potassium Chloride Carbon Dioxide Anion Gap BUN Creatinine Est GFR ( Amer) Est GFR (Non-Af Amer) Random Glucose Calcium Total Bilirubin AST ALT Alkaline Phosphatase Total Protein Albumin Globulin Albumin/Globulin Ratio Blood Type Antibody Screen 09/20/17 09/20/17 06:59 06:59 WBC RBC Hgb Hct MCV MCH MCHC RDW Plt Count Manual Plt Count MPV Neut % (Auto) Lymph % (Auto) Pettis % (Auto) Eos % (Auto) Baso % (Auto) Neut # (Auto) Lymph # (Auto) Pettis # (Auto) Eos # (Auto) Baso # (Auto) APTT Sodium 140 Potassium 3.9 Chloride 107 Carbon Dioxide 23 Anion Gap 14 BUN 14 Creatinine 1.1 Est GFR ( Amer) > 60 Est GFR (Non-Af Amer) > 60 Random Glucose 88 Calcium 8.5 L Total Bilirubin 0.6 AST 17 D ALT 13 L D Alkaline Phosphatase 45 Total Protein 6.2 L Albumin 3.4 L Globulin 2.8 Albumin/Globulin Ratio 1.2 Blood Type A POSITIVE Antibody Screen Negative Attending/Attestation - Attestation I have personally seen and examined this patient.: Yes I have fully participated in the care of the patient.: Yes I have reviewed all pertinent clinical information: Yes Notes (Text): 09/20/17 17:05 I have seen and examined the patient. Medical records, lab studies, and imaging were reviewed by me and a management plan was formulated on multidisciplinary rounds with resident Dr. Leon. I agree with their documented assessment and plan. Patient c/o dull chest pain post-op, f/u troponins, no EKG changes. Monitoring post-op fem-pop bypass, vascular flow checks. Critical Care Time 35 minutes. Multi-disciplinary rounds were performed with house staff, nursing, speech therapy, respiratory therapy, pharmacy and nutrition with integrated input from the primary team/attending and other consulting services. The documented time is cumulative and includes review of patient data/exams/labs/chart review and examination of the patient on rounds and throughout the day; time is exclusive of any procedures or teaching time. <Best Leon - Last Filed: 09/20/17 17:36> History of Present Illness - History of Present Illness History of Present Illness: Critical Care Consult Note for Dr. Gilbert Reason for consult: post op monitoring This is a 76 year old male with PMHx PVD, CAD s/p stents, HTN, HLD who presented to the hospital for right leg pain. Patient diagnosed with occlusion of the right femoral artery. He underwent Right femoral-popliteal bypass surgery with cadaver graft. Patient reportedly tolerated procedure well with estimated 300 mL blood loss. Patient was seen and examined in the PACU post op. Patient complaining of post op pain in the right leg as well as heaviness in the chest. He denies outright chest pain, but he describes it as some pressure in the mid sternum. Patient is not short of breath at this time. PMHx: CAD s/p stent, PVD, HTN, HLD, nephrolithiasis PSHx: bilateral femoral-popliteal bypass surgeries, PCI Allergies: NKDA Social: Former smoker 40+ pack year history. Quit 10 years ago. Former alcoholic. Denies drugs Review of Systems - Constitutional Constitutional: absent: Chills, Fever - EENT Eyes: absent: Change in Vision Ears: absent: Decreased Hearing Nose/Mouth/Throat: absent: Nasal Congestion - Cardiovascular Cardiovascular: Other (chest pressure). absent: Chest Pain, Palpitations - Respiratory Respiratory: absent: Dyspnea - Gastrointestinal Gastrointestinal: Nausea. absent: Abdominal Pain, Vomiting - Genitourinary Genitourinary: absent: Dysuria - Musculoskeletal Musculoskeletal: Other (right leg pain) - Integumentary Integumentary: absent: Rash - Neurological Neurological: absent: Dizziness, Weakness - Psychiatric Psychiatric: absent: Anxiety - Endocrine Endocrine: absent: Palpitations Past Patient History - Infectious Disease Hx of Infectious Diseases: None - Past Medical History & Family History Past Medical History?: Yes - Past Social History Smoking Status: Never Smoked - CARDIAC Hx Cardiac Disorders: Yes (CAD, S/P PCI 9 years ago) Hx Hypercholesterolemia: Yes Hx Hypertension: Yes Hx Peripheral Vascular Disease: Yes (S/P Femoral artery bypass graft) - PULMONARY Hx Respiratory Disorders: No - NEUROLOGICAL Hx Neurological Disorder: No - HEENT Hx HEENT Problems: No - RENAL Hx Chronic Kidney Disease: Yes Hx Kidney Stones: Yes (with stent placement) - ENDOCRINE/METABOLIC Hx Endocrine Disorders: No - HEMATOLOGICAL/ONCOLOGICAL Hx Blood Disorders: No - INTEGUMENTARY Hx Dermatological Problems: No - MUSCULOSKELETAL/RHEUMATOLOGICAL Hx Musculoskeletal Disorders: Yes Hx Falls: No Hx Osteoarthritis: Yes - GASTROINTESTINAL Hx Gastrointestinal Disorders: Yes - GENITOURINARY/GYNECOLOGICAL Hx Genitourinary Disorders: Yes Hx Prostate Problems: Yes - PSYCHIATRIC Hx Psychophysiologic Disorder: No Hx Substance Use: No - SURGICAL HISTORY Hx Surgeries: Yes Hx Angiogram: Yes Hx Angioplasty: Yes Hx Cardiac Catheterization: Yes Hx Coronary Stent: Yes Hx Femoral-Popliteal Bypass Graft: Yes - ANESTHESIA Hx Anesthesia: Yes Hx Anesthesia Reactions: No Meds - Medications Medications: Current Medications Aspirin (Aspirin Chewable) 81 mg PO DAILY [facility] Clopidogrel Bisulfate (Plavix) 75 mg PO DAILY [facility] Cyanocobalamin (Vitamin B12 1000 Mcg Tab) 2,000 mcg PO DAILY [facility] Last Admin: 09/20/17 09:58 Dose: Not Given Hydromorphone/Sodium Chloride (Dilaudid Lumber Planer) 0.2 mg IV Q4H PRN; Protocol PRN Reason: Pain, moderate (4-7) Heparin Sodium/Sodium Chloride (Heparin 42275 Units/250ml 1/2 Normal Saline) 25 ,000 units in 250 mls @ 13.472 mls/hr IV .[id number] PRN; Protocol; 18 UNITS/KG/HR PRN Reason: PROTOCOL Last Admin: 09/19/17 21:13 Dose: 15 units/kg/hr, 11.226 mls/hr Dextrose/Sodium Chloride (Dextrose 5%/0.45% Ns 1000 Ml) 1,000 mls @ 50 mls/hr IV .Q20H [facility] Last Admin: 09/20/17 09:58 Dose: Not Given Losartan Potassium (Cozaar) 100 mg PO DAILY [facility] Last Admin: 09/20/17 10:33 Dose: 100 mg Metoprolol Succinate (Toprol Xl) 50 mg PO BID [facility] Last Admin: 09/20/17 10:33 Dose: 50 mg Morphine Sulfate (Morphine) 1 mg IVP Q10M PRN PRN Reason: Pain, severe (8-10) Stop: 09/20/17 17:46 Ondansetron HCl (Zofran Inj) 4 mg IVP ONCE PRN PRN Reason: Nausea/Vomiting Stop: 09/20/17 17:47 Rosuvastatin Calcium (Crestor) 5 mg PO HS [facility] Last Admin: 09/19/17 21:04 Dose: 5 mg Physical Exam - Constitutional Appears: No Acute Distress - Head Exam Head Exam: ATRAUMATIC, NORMOCEPHALIC - Eye Exam Eye Exam: EOMI, PERRL - ENT Exam ENT Exam: Mucous Membranes Moist - Respiratory Exam Respiratory Exam: Clear to Auscultation Bilateral, NORMAL BREATHING PATTERN. absent: Rales, Rhonchi, Wheezes - Cardiovascular Exam Cardiovascular Exam: REGULAR RHYTHM, +S1, +S2 - GI/Abdominal Exam GI & Abdominal Exam: Normal Bowel Sounds, Soft. absent: Tenderness - Extremities Exam Additional comments: Right leg in brace Pedal pulses obtained with doppler - Neurological Exam Neurological exam: Alert, CN II-XII Intact, Oriented x3 - Psychiatric Exam Psychiatric exam: Normal Affect, Normal Mood - Skin Skin Exam: Dry, Warm Results - Vital Signs Recent Vital Signs: Last Vital Signs Temp 97.2 F L 09/20/17 15:40 Pulse 94 H 09/20/17 15:40 Resp 19 09/20/17 15:40 BP 156/96 H 09/20/17 15:40 Pulse Ox 100 09/20/17 15:40 - Labs Result Diagrams: 09/20/17 06:59 09/20/17 06:59 Labs: Laboratory Results - last 24 hr 09/19/17 09/19/17 09/20/17 23:03 23:03 06:59 WBC 4.7 L 5.3 RBC 4.40 4.29 L Hgb 13.3 13.1 Hct 38.2 37.3 MCV 86.8 87.0 MCH 30.3 30.7 MCHC 34.9 35.2 RDW 14.5 14.7 H Plt Count 167 165 Manual Plt Count 176 MPV 8.0 8.3 Neut % (Auto) 60.6 Lymph % (Auto) 24.4 Pettis % (Auto) 11.0 H Eos % (Auto) 3.0 Baso % (Auto) 1.0 Neut # (Auto) 3.2 Lymph # (Auto) 1.3 Pettis # (Auto) 0.6 Eos # (Auto) 0.2 Baso # (Auto) 0.1 APTT 84 H D Sodium Potassium Chloride Carbon Dioxide Anion Gap BUN Creatinine Est GFR ( Amer) Est GFR (Non-Af Amer) Random Glucose Calcium Total Bilirubin AST ALT Alkaline Phosphatase Total Protein Albumin Globulin Albumin/Globulin Ratio Blood Type Antibody Screen 09/20/17 09/20/17 06:59 06:59 WBC RBC Hgb Hct MCV MCH MCHC RDW Plt Count Manual Plt Count MPV Neut % (Auto) Lymph % (Auto) Pettis % (Auto) Eos % (Auto) Baso % (Auto) Neut # (Auto) Lymph # (Auto) Pettis # (Auto) Eos # (Auto) Baso # (Auto) APTT Sodium 140 Potassium 3.9 Chloride 107 Carbon Dioxide 23 Anion Gap 14 BUN 14 Creatinine 1.1 Est GFR ( Amer) > 60 Est GFR (Non-Af Amer) > 60 Random Glucose 88 Calcium 8.5 L Total Bilirubin 0.6 AST 17 D ALT 13 L D Alkaline Phosphatase 45 Total Protein 6.2 L Albumin 3.4 L Globulin 2.8 Albumin/Globulin Ratio 1.2 Blood Type A POSITIVE Antibody Screen Negative Assessment & Plan - Assessment and Plan (Free Text) Assessment: This is a 76 year old male with PMHx PVD, CAD s/p stents, HTN, HLD who presented to the hospital for right leg pain. He is s/p femoral-popliteal bypass with reportedly no complications. Admitted to ICU for post op monitoring. Neuro Awake, verbal Cardio Assessment: Chest pressure in the setting of CAD history EKG NSR f/u GAURAV ASA 81 mg PO daily Plavix 75 mg PO daily Losartan 100 mg PO daily Toprol XL 100 mg PO daily Crestor 5 mg PO HS Pulm saturating well on nasal cannula GI Heart Healthy Diet Heme/Onc Assessment: s/p femoral-popliteal bypass Monitor H/H Monitor site for bleeding Prophylaxis GI ppx not indicated at this time VTE ppx contraindicated post op Pain mgmt per surgery Discussed with Dr. Gilbert
[2017-09-20 17:51] LABS: CK-MB 0.36 ng/mL (0.0-3.38)
--- NOTE | 2017-09-20 19:06 | CP.PCM.PN ---
Subjective - Date & Time of Evaluation Date of Evaluation: 09/20/17 Time of Evaluation: 18:45 - Subjective Subjective: -Had femoral-popliteal bypass earlier today. -Patient reportedly had chest pain when he woke up but now pain-free. No shortness of breath. EKG and troponin - noted- wnl -Now c/o severe pain on the R leg; some bleeding noted from the same leg- warm to touch -pedal pulses(dorsalis pedis) R obtained by doppler, difficult to obtain posterior tibial; L leg WNL Objective - Vital Signs/Intake and Output Vital Signs (last 24 hours): Temp Pulse Resp BP Pulse Ox 97.3 F L 97 H 11 L 162/95 H 98 09/20/17 17:30 09/20/17 18:10 09/20/17 18:10 09/20/17 17:33 09/20/17 18:10 Intake and Output: 09/20/17 09/21/17 18:59 06:59 Intake Total 1150 Output Total 400 Balance 750 - Medications Medications: Current Medications Aspirin (Aspirin Chewable) 81 mg PO DAILY [facility] Last Admin: 09/20/17 18:07 Dose: 81 mg Clopidogrel Bisulfate (Plavix) 75 mg PO DAILY [facility] Last Admin: 09/20/17 18:07 Dose: 75 mg Cyanocobalamin (Vitamin B12 1000 Mcg Tab) 2,000 mcg PO DAILY [facility] Last Admin: 09/20/17 09:58 Dose: Not Given Hydromorphone/Sodium Chloride (Dilaudid International Nurse) 6 mg IV Q4H PRN; Protocol PRN Reason: Pain, moderate (4-7) Last Admin: 09/20/17 18:42 Dose: 6 mg Dextrose/Sodium Chloride (Dextrose 5%/0.45% Ns 1000 Ml) 1,000 mls @ 50 mls/hr IV .Q20H [facility] Last Admin: 09/20/17 09:58 Dose: Not Given Losartan Potassium (Cozaar) 100 mg PO DAILY [facility] Last Admin: 09/20/17 10:33 Dose: 100 mg Metoprolol Succinate (Toprol Xl) 50 mg PO BID [facility] Last Admin: 09/20/17 18:07 Dose: 50 mg Rosuvastatin Calcium (Crestor) 5 mg PO HS [facility] Last Admin: 09/19/17 21:04 Dose: 5 mg - Labs Labs: 09/20/17 06:59 09/20/17 06:59 PT 11.0 SECONDS (9.7-12.2) 09/17/17 11:55 INR 1.0 09/17/17 11:55 APTT 84 SECONDS (21-34) H D 09/19/17 23:03 - Constitutional Appears: No Acute Distress - Head Exam Head Exam: NORMAL INSPECTION - Eye Exam Eye Exam: Normal appearance - Neck Exam Neck Exam: Normal Inspection - Respiratory Exam Respiratory Exam: Clear to Ausculation Bilateral, NORMAL BREATHING PATTERN - Cardiovascular Exam Cardiovascular Exam: REGULAR RHYTHM, RRR, +S1, +S2 - GI/Abdominal Exam GI & Abdominal Exam: Soft, Normal Bowel Sounds - Extremities Exam Additional comments: both legs warm to touch. l leg intact, R leg swollen with oozing noted, DP pulse obtined by doppler, dificult to hear posterior tibial by doppler - Neurological Exam Neurological Exam: Alert, Oriented x3 - Psychiatric Exam Psychiatric exam: Normal Affect, Normal Mood Assessment and Plan (1) Peripheral arterial disease Assessment & Plan: had femoral-popliteal bypass today. both legs warm to touch. Continue Rx as per vascular surgery. Status: Acute (2) CAD, multiple vessel Assessment & Plan: Had chest pain. Will get another enzyme and EKG am. Status: Chronic
[2017-09-20 20:15] LABS: HEMOGLOBIN 12.5 g/dL (12.0-18.0); MEAN CELL VOLUME 88.2 fL (80.0-94.0); MEAN CORPUSCULAR HEMOGLOBIN 30.2 pg (27.0-31.0); MEAN CORPUSCULAR HGB CONC 34.3 g/dL (33.0-37.0); MEAN PLATELET VOLUME 7.7 fL (7.2-11.7); RBC 4.14 Mil/uL (4.40-5.90); RED CELL DISTRIBUTION WIDTH 14.3 % (11.5-14.5); WHITE BLOOD COUNT 8.7 K/uL (4.8-10.8)
[2017-09-20 20:45] LABS: CK-MB 0.31 ng/mL (0.0-3.38)
[2017-09-20] MEDS ORDERED: Dextrose 5%/0.45% NS 1,000 ML IV SCH (21:05)
--- NOTE | 2017-09-21 06:08 | CP.PCM.PN ---
Subjective - Date & Time of Evaluation Date of Evaluation: 09/21/17 Time of Evaluation: 05:40 - Subjective Subjective: Vascular surgery progress note for Dr. Javi Vicente, PGY-1 Pt S & E at bedside. Pt reports insomnia, pain wasn't controlled until later in the evening yesterday. Denies N & V, F & C, numbness or tingling of foot. Tolerating fluids , did not have much of an appetite last night. Objective - Vital Signs/Intake and Output Vital Signs (last 24 hours): Temp Pulse Resp BP Pulse Ox 97.3 F L 81 14 130/79 100 09/20/17 17:30 09/21/17 05:00 09/21/17 05:00 09/21/17 04:18 09/21/17 05:00 Intake and Output: 09/20/17 09/21/17 18:59 06:59 Intake Total 1150 1375 Output Total 400 605 Balance 750 770 - Medications Medications: Current Medications Aspirin (Aspirin Chewable) 81 mg PO DAILY [facility] Last Admin: 09/20/17 18:07 Dose: 81 mg Clopidogrel Bisulfate (Plavix) 75 mg PO DAILY [facility] Last Admin: 09/20/17 18:07 Dose: 75 mg Cyanocobalamin (Vitamin B12 1000 Mcg Tab) 2,000 mcg PO DAILY [facility] Last Admin: 09/20/17 09:58 Dose: Not Given Hydromorphone/Sodium Chloride (Dilaudid Telephone Answerer) 6 mg IV Q4H PRN; Protocol PRN Reason: Pain, moderate (4-7) Dextrose/Sodium Chloride (Dextrose 5%/0.45% Ns 1000 Ml) 1,000 mls @ 75 mls/hr IV .[id number] [facility] Last Admin: 09/20/17 21:12 Dose: 75 mls/hr Losartan Potassium (Cozaar) 100 mg PO DAILY [facility] Last Admin: 09/20/17 10:33 Dose: 100 mg Metoprolol Succinate (Toprol Xl) 50 mg PO BID [facility] Last Admin: 09/20/17 18:07 Dose: 50 mg Rosuvastatin Calcium (Crestor) 5 mg PO HS [facility] Last Admin: 09/20/17 21:24 Dose: 5 mg - Labs Labs: 09/20/17 20:10 09/20/17 06:59 PT 11.0 SECONDS (9.7-12.2) 09/17/17 11:55 INR 1.0 09/17/17 11:55 APTT 84 SECONDS (21-34) H D 09/19/17 23:03 - Constitutional Appears: Non-toxic, No Acute Distress - Head Exam Head Exam: ATRAUMATIC, NORMAL INSPECTION, NORMOCEPHALIC - Eye Exam Eye Exam: EOMI, Normal appearance - ENT Exam ENT Exam: Mucous Membranes Moist, Normal Exam - Neck Exam Neck Exam: Full ROM, Normal Inspection - Respiratory Exam Respiratory Exam: NORMAL BREATHING PATTERN - Cardiovascular Exam Cardiovascular Exam: REGULAR RHYTHM, +S1, +S2 - GI/Abdominal Exam GI & Abdominal Exam: Soft, Tenderness (Over right inguinal surgical site). absent: Distended, Firm, Guarding - Extremities Exam Additional comments: Right LE with dressing in place, sanguinous strike through on medial aspect, borders are dried. DP and TP audible via doppler - Neurological Exam Neurological Exam: Alert, Awake, CN II-XII Intact, Oriented x3 - Psychiatric Exam Psychiatric exam: Normal Affect, Normal Mood - Skin Skin Exam: Dry, Intact, Normal Color, Warm Assessment and Plan - Assessment and Plan (Free Text) Assessment: 76M POD#1 s/p Right lower extremity femoral-popliteal bypass with cryovein and intra-operative arteriogram Plan: Monitor dressing d/c ayala d/c IVF Cont ASA & Plavix FU AM labs Montor for bleeding Cont pain control Cont diet ok to downgrade d/c immobilizer cont bedrest PT DW attending Cinthia, PGY-1
[2017-09-21 06:31] LABS: BASO % 0.6 % (0.0-2.0); EOS % 0.5 % (0.0-4.0); HEMOGLOBIN 12.2 g/dL (12.0-18.0); LYMPH # 0.9 K/uL (1.0-4.3); LYMPH % 12.7 % (20.0-40.0); MEAN CELL VOLUME 88.1 fL (80.0-94.0); MEAN CORPUSCULAR HEMOGLOBIN 30.1 pg (27.0-31.0); MEAN CORPUSCULAR HGB CONC 34.2 g/dL (33.0-37.0); MEAN PLATELET VOLUME 8.3 fL (7.2-11.7); MONO # 0.8 K/uL (0.0-0.8); MONO % 11.2 % (0.0-10.0); NEUT # 5.2 K/uL (1.8-7.0); RBC 4.04 Mil/uL (4.40-5.90); RED CELL DISTRIBUTION WIDTH 14.5 % (11.5-14.5); WHITE BLOOD COUNT 6.9 K/uL (4.8-10.8)
[2017-09-21 06:54] LABS: ALB/GLOB RATIO 1.3 (1.0-2.1); ALBUMIN 3.4 g/dL (3.5-5.0); ALT/SGPT 18 U/L (21-72); AST/SGOT 21 U/L (17-59); BLOOD UREA NITROGEN 17 mg/dL (9-20); CALCIUM 8.3 mg/dl (8.6-10.4); GFR AFRICAN-AMERICAN > 60; GFR NON-AFRICAN AMERICAN > 60
[2017-09-21 09:08] LABS: CK-MB 0.34 ng/mL (0.0-3.38)
--- NOTE | 2017-09-21 10:40 | CP.PCM.PN ---
Subjective - Date & Time of Evaluation Date of Evaluation: 09/21/17 Time of Evaluation: 10:39 - Subjective Subjective: stable good doppler signals but not a palpable pulse HCT stable may get OOB increase activity Objective - Vital Signs/Intake and Output Vital Signs (last 24 hours): Temp Pulse Resp BP Pulse Ox 97.3 F L 96 H 18 133/76 98 09/20/17 17:30 09/21/17 10:18 09/21/17 10:18 09/21/17 10:18 09/21/17 10:18 Intake and Output: 09/21/17 09/21/17 06:59 18:59 Intake Total 1750 1180 Output Total 685 450 Balance 1065 730 - Medications Medications: Current Medications Aspirin (Aspirin Chewable) 81 mg PO DAILY [facility] Last Admin: 09/21/17 09:04 Dose: 81 mg Clopidogrel Bisulfate (Plavix) 75 mg PO DAILY [facility] Last Admin: 09/21/17 09:04 Dose: 75 mg Cyanocobalamin (Vitamin B12 1000 Mcg Tab) 2,000 mcg PO DAILY [facility] Last Admin: 09/20/17 09:58 Dose: Not Given Hydromorphone/Sodium Chloride (Dilaudid Back Hanger) 6 mg IV Q4H PRN; Protocol PRN Reason: Pain, moderate (4-7) Last Admin: 09/20/17 21:00 Dose: 6 mg Losartan Potassium (Cozaar) 100 mg PO DAILY [facility] Last Admin: 09/21/17 09:04 Dose: 100 mg Metoprolol Succinate (Toprol Xl) 50 mg PO BID [facility] Last Admin: 09/20/17 18:07 Dose: 50 mg Rosuvastatin Calcium (Crestor) 5 mg PO HS [facility] Last Admin: 09/20/17 21:24 Dose: 5 mg - Labs Labs: 09/21/17 06:18 09/21/17 06:18 PT 11.0 SECONDS (9.7-12.2) 09/17/17 11:55 INR 1.0 09/17/17 11:55 APTT 84 SECONDS (21-34) H D 09/19/17 23:03
--- NOTE | 2017-09-21 10:43 | CP.PCM.PCO ---
Physician Communication Note - Physician Communication Note Physician Communication Note: Patient is ok to downgrade from ICU
[2017-09-21] MEDS: Metoprolol Succinate 50 mg XL Tab PO SCH ×2 (11:04→18:11)
[2017-09-21] MEDS: oxyCODONE 5 mg Immediate Release Tab PO PRN (22:41)
[2017-09-22 07:21] LABS: BASO % 0.4 % (0.0-2.0); EOS # 0.2 K/uL (0.0-0.7); EOS % 3.5 % (0.0-4.0); HEMOGLOBIN 10.8 g/dL (12.0-18.0); LYMPH # 0.9 K/uL (1.0-4.3); LYMPH % 14.6 % (20.0-40.0); MEAN CELL VOLUME 87.4 fL (80.0-94.0); MEAN CORPUSCULAR HEMOGLOBIN 30.5 pg (27.0-31.0); MEAN CORPUSCULAR HGB CONC 34.9 g/dL (33.0-37.0); MONO # 0.8 K/uL (0.0-0.8); MONO % 13.3 % (0.0-10.0); NEUT # 4.2 K/uL (1.8-7.0); NEUT % 68.2 % (50.0-75.0); RBC 3.54 Mil/uL (4.40-5.90); RED CELL DISTRIBUTION WIDTH 14.5 % (11.5-14.5); WHITE BLOOD COUNT 6.2 K/uL (4.8-10.8)
[2017-09-22 07:43] LABS: ALB/GLOB RATIO 1.1 (1.0-2.1); ALT/SGPT 31 U/L (21-72); AST/SGOT 26 U/L (17-59); BLOOD UREA NITROGEN 21 mg/dL (9-20); CALCIUM 8.4 mg/dl (8.6-10.4); GFR AFRICAN-AMERICAN > 60; GFR NON-AFRICAN AMERICAN 59
--- NOTE | 2017-09-22 08:54 | CP.PCM.PN ---
Subjective - Date & Time of Evaluation Date of Evaluation: 09/22/17 Time of Evaluation: 08:51 - Subjective Subjective: Vascular Surgery - Dr. López PT S&E. DWAYNE. Pt complains of mild pain in R leg at surgical site, improving. He is tolerating regular diet, no F/C/Sob/CP. Wishes to be OOB. Objective - Vital Signs/Intake and Output Vital Signs (last 24 hours): Temp Pulse Resp BP Pulse Ox 98.1 F 88 18 155/77 H 99 09/22/17 00:54 09/22/17 00:54 09/22/17 00:54 09/22/17 00:54 09/22/17 00:54 Intake and Output: 09/22/17 09/22/17 06:59 18:59 Intake Total 1000 Output Total 1100 Balance -100 - Medications Medications: Current Medications Acetaminophen (Tylenol 325mg Tab) 650 mg PO Q6 PRN PRN Reason: Pain, Mild (1-3) Aspirin (Aspirin Chewable) 81 mg PO DAILY [facility] Last Admin: 09/21/17 09:04 Dose: 81 mg Clopidogrel Bisulfate (Plavix) 75 mg PO DAILY [facility] Last Admin: 09/21/17 09:04 Dose: 75 mg Cyanocobalamin (Vitamin B12 1000 Mcg Tab) 2,000 mcg PO DAILY [facility] Last Admin: 09/21/17 11:04 Dose: 2,000 mcg Losartan Potassium (Cozaar) 100 mg PO DAILY [facility] Last Admin: 09/21/17 09:04 Dose: 100 mg Metoprolol Succinate (Toprol Xl) 50 mg PO BID [facility] Last Admin: 09/21/17 18:11 Dose: 50 mg Oxycodone HCl (Oxycodone Immediate Release Tab) 5 mg PO Q4H PRN PRN Reason: Pain, moderate (4-7) Last Admin: 09/21/17 22:41 Dose: 5 mg Rosuvastatin Calcium (Crestor) 5 mg PO HS [facility] Last Admin: 09/21/17 21:18 Dose: 5 mg - Labs Labs: 09/22/17 07:11 09/22/17 07:11 PT 11.0 SECONDS (9.7-12.2) 09/17/17 11:55 INR 1.0 09/17/17 11:55 APTT 84 SECONDS (21-34) H D 09/19/17 23:03 - Constitutional Appears: No Acute Distress - Head Exam Head Exam: ATRAUMATIC, NORMAL INSPECTION, NORMOCEPHALIC - Eye Exam Eye Exam: Normal appearance - Respiratory Exam Respiratory Exam: NORMAL BREATHING PATTERN. absent: Respiratory Distress - Extremities Exam Additional comments: surgical dressings c/d/i, good dopplerable pulses b/l , mild swelling r calf as expected - Neurological Exam Neurological Exam: Alert, Oriented x3 - Psychiatric Exam Psychiatric exam: Normal Affect, Normal Mood - Skin Skin Exam: Dry, Intact Assessment and Plan - Assessment and Plan (Free Text) Assessment: 76M POD#2 s/p RLE fem-pop bypass Plan: OOB to chair, Physical therapy, Assist ambulating Cont ASA & Plavix Cont pain control prn TITUS López
[2017-09-22] MEDS: Metoprolol Succinate 50 mg XL Tab PO SCH ×2 (10:21→17:43)
[2017-09-22] MEDS: oxyCODONE 5 mg Immediate Release Tab PO PRN ×2 (10:44→22:10)
--- NOTE | 2017-09-22 16:12 | CP.PCM.PN ---
Subjective - Date & Time of Evaluation Date of Evaluation: 09/22/17 Time of Evaluation: 03:50 - Subjective Subjective: -Patient comfortable. No complaints -R leg and foot warm touch, doppler pedal pulses good -appetite good, eating well Objective - Vital Signs/Intake and Output Vital Signs (last 24 hours): Temp Pulse Resp BP Pulse Ox 98.1 F 88 18 155/77 H 99 09/22/17 00:54 09/22/17 00:54 09/22/17 00:54 09/22/17 00:54 09/22/17 00:54 Intake and Output: 09/22/17 09/22/17 06:59 18:59 Intake Total 1000 Output Total 1100 Balance -100 - Medications Medications: Current Medications Acetaminophen (Tylenol 325mg Tab) 650 mg PO Q6 PRN PRN Reason: Pain, Mild (1-3) Aspirin (Aspirin Chewable) 81 mg PO DAILY [facility] Last Admin: 09/22/17 10:20 Dose: 81 mg Clopidogrel Bisulfate (Plavix) 75 mg PO DAILY [facility] Last Admin: 09/22/17 10:21 Dose: 75 mg Cyanocobalamin (Vitamin B12 1000 Mcg Tab) 2,000 mcg PO DAILY [facility] Last Admin: 09/22/17 10:28 Dose: 2,000 mcg Losartan Potassium (Cozaar) 100 mg PO DAILY [facility] Last Admin: 09/22/17 10:21 Dose: 100 mg Metoprolol Succinate (Toprol Xl) 50 mg PO BID [facility] Last Admin: 09/22/17 10:21 Dose: 50 mg Oxycodone HCl (Oxycodone Immediate Release Tab) 5 mg PO Q4H PRN PRN Reason: Pain, moderate (4-7) Last Admin: 09/22/17 10:44 Dose: 5 mg Rosuvastatin Calcium (Crestor) 5 mg PO HS [facility] Last Admin: 09/21/17 21:18 Dose: 5 mg - Labs Labs: 09/22/17 07:11 09/22/17 07:11 PT 11.0 SECONDS (9.7-12.2) 09/17/17 11:55 INR 1.0 09/17/17 11:55 APTT 84 SECONDS (21-34) H D 09/19/17 23:03 - Constitutional Appears: No Acute Distress - Head Exam Head Exam: NORMAL INSPECTION - Eye Exam Eye Exam: Normal appearance - Neck Exam Neck Exam: Normal Inspection - Respiratory Exam Respiratory Exam: Clear to Ausculation Bilateral, NORMAL BREATHING PATTERN - Cardiovascular Exam Cardiovascular Exam: REGULAR RHYTHM, +S1, +S2 - GI/Abdominal Exam GI & Abdominal Exam: Soft, Normal Bowel Sounds - Rectal Exam Rectal Exam: Deferred - Extremities Exam Additional comments: pedal pulse good by doppler, R foot and leg warm to touch - Neurological Exam Neurological Exam: Alert, Awake, Oriented x3 - Psychiatric Exam Psychiatric exam: Normal Affect, Normal Mood - Skin Skin Exam: Dry, Intact, Normal Color, Warm Assessment and Plan (1) Peripheral arterial disease Assessment & Plan: S/P R Femoral-popliteal bypass. tolerated the prpocedure well. -R leg and foot warm to touch, pedal pulses good by doppler Status: Acute (2) CAD, multiple vessel Assessment & Plan: cardiac enzymes all wnl. EKG- normal Status: Chronic
--- NOTE | 2017-09-23 06:21 | OP ---
PROCEDURE DATE: 09/20/2017 PREOPERATIVE DIAGNOSIS: Claudication, right leg. PROCEDURE CARRIED OUT: Right femoropopliteal bypass, below knee with reverse saphenous vein (CryoVein) with intraoperative arteriogram. The operations were difficult than usual because of previous surgery. DESCRIPTION OF PROCEDURE: The patient is a 76-year-old man who had a previous bypass in his right leg which occluded recently. Since that time, he has been incapacitated. He has very short distance claudication. He is saying he cannot walk across the street with the light changing without being seized and having to stop. His past history includes bypasses on both legs. On the left leg, it appears that a vein was used and it is not clear if this is bypassed vein. On the right leg, he had what appeared to be a Dacron graft. OPERATIVE FINDINGS: Preoperatively, we measured the saphenous vein on the leg and their segments were too small to be utilized. We did not dissect it out during the procedure. Stable use of the CryoVein. We dissected out the popliteal artery below the knee and gained control of this. We then dissected out the distal external iliac artery, proximal common femoral artery, and controlled this bleeding. Numerous tunnels below the previously placed graft. We then brought this up carefully into the groin and anastomosed it, at first, below the knee using tourniquet control, loupe magnification, and heparin anticoagulation. The groin was anastomosed. The vessel was atherosclerotic . After this had been done and securing position, hemostasis was obtained. We closed the wounds with Monocryl and Vicryl sutures, and closed the skin with skin clips. Blood loss during the procedure was 300 mL. Operation carried out is right fem-pop bypass with reverse saphenous vein, CryoVein with intraoperative arteriogram. Completion angiogram showed brisk flow into the tibial vessels and stenosis of the origin of the anterior tibial. Poor visualization of the posterior tibial distally and the diseased peroneal artery. At the end of the procedure, he had a palpable pulse in the foot via the posterior via the anterior dorsalis pedis artery and excellent signals over the posterior tibial. Blood loss is 300 mL. Bal Rene Jr., MD cc: Chrissie Colvin MD
[2017-09-23 06:36] LABS: BASO % 0.4 % (0.0-2.0); EOS # 0.2 K/uL (0.0-0.7); EOS % 2.8 % (0.0-4.0); HEMOGLOBIN 10.6 g/dL (12.0-18.0); LYMPH # 0.6 K/uL (1.0-4.3); LYMPH % 10.8 % (20.0-40.0); MEAN CELL VOLUME 87.2 fL (80.0-94.0); MEAN CORPUSCULAR HEMOGLOBIN 30.2 pg (27.0-31.0); MEAN CORPUSCULAR HGB CONC 34.6 g/dL (33.0-37.0); MEAN PLATELET VOLUME 7.7 fL (7.2-11.7); MONO # 0.7 K/uL (0.0-0.8); MONO % 12.3 % (0.0-10.0); NEUT # 4.4 K/uL (1.8-7.0); NEUT % 73.7 % (50.0-75.0); RBC 3.52 Mil/uL (4.40-5.90); RED CELL DISTRIBUTION WIDTH 14.7 % (11.5-14.5)
--- NOTE | 2017-09-23 07:38 | CP.PCM.PN ---
Subjective - Date & Time of Evaluation Date of Evaluation: 09/23/17 Time of Evaluation: 07:00 - Subjective Subjective: Vascular surgery progress note for Dr. Javi Vicente, PGY-1 Pt S & E at bedside Pt reports some RLE pain with ambulation, is OOB. Tolerating diet. Denies N & V, F & C, paresthesias. Would like to go home. Objective - Vital Signs/Intake and Output Vital Signs (last 24 hours): Temp Pulse Resp BP Pulse Ox 97.8 F 82 20 97/48 L 97 09/22/17 23:55 09/22/17 23:55 09/22/17 23:55 09/22/17 23:55 09/22/17 23:55 - Medications Medications: Current Medications Acetaminophen (Tylenol 325mg Tab) 650 mg PO Q6 PRN PRN Reason: Pain, Mild (1-3) Aspirin (Aspirin Chewable) 81 mg PO DAILY [facility] Last Admin: 09/22/17 10:20 Dose: 81 mg Clopidogrel Bisulfate (Plavix) 75 mg PO DAILY [facility] Last Admin: 09/22/17 10:21 Dose: 75 mg Cyanocobalamin (Vitamin B12 1000 Mcg Tab) 2,000 mcg PO DAILY [facility] Last Admin: 09/22/17 10:28 Dose: 2,000 mcg Losartan Potassium (Cozaar) 100 mg PO DAILY [facility] Last Admin: 09/22/17 10:21 Dose: 100 mg Metoprolol Succinate (Toprol Xl) 50 mg PO BID [facility] Last Admin: 09/22/17 17:43 Dose: 50 mg Oxycodone HCl (Oxycodone Immediate Release Tab) 5 mg PO Q4H PRN PRN Reason: Pain, moderate (4-7) Last Admin: 09/22/17 22:10 Dose: 5 mg Rosuvastatin Calcium (Crestor) 5 mg PO HS [facility] Last Admin: 09/22/17 22:10 Dose: 5 mg - Labs Labs: 09/23/17 06:24 09/22/17 07:11 PT 11.0 SECONDS (9.7-12.2) 09/17/17 11:55 INR 1.0 09/17/17 11:55 APTT 84 SECONDS (21-34) H D 09/19/17 23:03 - Constitutional Appears: Non-toxic, No Acute Distress - Head Exam Head Exam: ATRAUMATIC, NORMAL INSPECTION, NORMOCEPHALIC - Eye Exam Eye Exam: EOMI, Normal appearance - ENT Exam ENT Exam: Mucous Membranes Moist, Normal Exam - Neck Exam Neck Exam: Full ROM, Normal Inspection - Respiratory Exam Respiratory Exam: NORMAL BREATHING PATTERN - Cardiovascular Exam Cardiovascular Exam: REGULAR RHYTHM, +S1, +S2 - GI/Abdominal Exam GI & Abdominal Exam: Soft. absent: Tenderness - Extremities Exam Additional comments: RLE island dressings in place- clean/dry/intact - Neurological Exam Neurological Exam: Alert, Awake, CN II-XII Intact, Oriented x3 - Psychiatric Exam Psychiatric exam: Normal Affect, Normal Mood - Skin Skin Exam: Dry, Intact, Normal Color, Warm Assessment and Plan - Assessment and Plan (Free Text) Assessment: 76M POD#3 s/p RLE fem-pop bypass Plan: OOBTC PT Ambulate w/assistance Cont ASA & Plavix Cont pain control PRN Ok to d/c home from surgical stand point TITUS attending Cinthia, PGY-1
[2017-09-23 07:51] LABS: ALB/GLOB RATIO 1.1 (1.0-2.1); ALT/SGPT 28 U/L (21-72); AST/SGOT 22 U/L (17-59); BLOOD UREA NITROGEN 24 mg/dL (9-20); CALCIUM 8.3 mg/dl (8.6-10.4); GFR AFRICAN-AMERICAN > 60; GFR NON-AFRICAN AMERICAN 59
[2017-09-23] MEDS: Metoprolol Succinate 50 mg XL Tab PO SCH ×2 (12:02→17:04)
--- NOTE | 2017-09-23 13:17 | CP.PCM.PN ---
Subjective - Date & Time of Evaluation Date of Evaluation: 09/23/17 Time of Evaluation: 13:05 - Subjective Subjective: -Patient ambulated with walker with physical therapist. Claims he had some pain at the incision site otherwise felt fine -R leg and foot warm throughout. +pedal pulses by doppler -no chest pain, no shortness of breath -Labs noted. BUN rising- advised to increase fluid intake. Will give some IVF. -Planning discharge in am if ok with surgeon. Objective - Vital Signs/Intake and Output Vital Signs (last 24 hours): Temp Pulse Resp BP Pulse Ox 98.1 F 84 18 137/71 99 09/23/17 07:30 09/23/17 07:30 09/23/17 07:30 09/23/17 07:30 09/23/17 07:30 - Medications Medications: Current Medications Acetaminophen (Tylenol 325mg Tab) 650 mg PO Q6 PRN PRN Reason: Pain, Mild (1-3) Aspirin (Aspirin Chewable) 81 mg PO DAILY [facility] Last Admin: 09/23/17 12:02 Dose: 81 mg Clopidogrel Bisulfate (Plavix) 75 mg PO DAILY [facility] Last Admin: 09/23/17 12:02 Dose: 75 mg Cyanocobalamin (Vitamin B12 1000 Mcg Tab) 2,000 mcg PO DAILY [facility] Last Admin: 09/23/17 12:02 Dose: 2,000 mcg Losartan Potassium (Cozaar) 100 mg PO DAILY [facility] Last Admin: 09/23/17 12:02 Dose: 100 mg Metoprolol Succinate (Toprol Xl) 50 mg PO BID [facility] Last Admin: 09/23/17 12:02 Dose: 50 mg Oxycodone HCl (Oxycodone Immediate Release Tab) 5 mg PO Q4H PRN PRN Reason: Pain, moderate (4-7) Last Admin: 09/22/17 22:10 Dose: 5 mg Rosuvastatin Calcium (Crestor) 5 mg PO HS [facility] Last Admin: 09/22/17 22:10 Dose: 5 mg - Labs Labs: 09/23/17 06:24 09/23/17 06:24 PT 11.0 SECONDS (9.7-12.2) 09/17/17 11:55 INR 1.0 09/17/17 11:55 APTT 84 SECONDS (21-34) H D 09/19/17 23:03 - Constitutional Appears: No Acute Distress - Head Exam Head Exam: NORMAL INSPECTION - Eye Exam Eye Exam: Normal appearance - Neck Exam Neck Exam: Normal Inspection - Respiratory Exam Respiratory Exam: Clear to Ausculation Bilateral, NORMAL BREATHING PATTERN - Cardiovascular Exam Cardiovascular Exam: REGULAR RHYTHM, RRR, +S1, +S2 - GI/Abdominal Exam GI & Abdominal Exam: Soft, Normal Bowel Sounds - Extremities Exam Additional comments: S/P Fem-pop bypass graft on the R. legs slightly swollen but warm to touch including foot +pedal pulses by doppler Assessment and Plan (1) Peripheral arterial disease Status: Acute (2) CAD, multiple vessel Status: Chronic (3) Elevated BUN Assessment & Plan: probably from relative dehydration. Will give IVF and repeat BMP in am. Status: Acute
[2017-09-23] MEDS ORDERED: Dextrose 5%/0.45% NS 1,000 ML IV SCH (13:30)
[2017-09-24 01:29] VITALS: RESP 20
[2017-09-24 08:20] LABS: BASO # 0.1 K/uL (0.0-0.2); BASO % 1.2 % (0.0-2.0); EOS # 0.3 K/uL (0.0-0.7); EOS % 5.5 % (0.0-4.0); HEMOGLOBIN 10.8 g/dL (12.0-18.0); LYMPH # 1.1 K/uL (1.0-4.3); LYMPH % 22.2 % (20.0-40.0); MEAN CELL VOLUME 87.1 fL (80.0-94.0); MEAN CORPUSCULAR HEMOGLOBIN 30.3 pg (27.0-31.0); MEAN CORPUSCULAR HGB CONC 34.8 g/dL (33.0-37.0); MEAN PLATELET VOLUME 7.9 fL (7.2-11.7); MONO # 0.6 K/uL (0.0-0.8); MONO % 12.5 % (0.0-10.0); NEUT # 2.8 K/uL (1.8-7.0); NEUT % 58.6 % (50.0-75.0); RBC 3.57 Mil/uL (4.40-5.90); RED CELL DISTRIBUTION WIDTH 14.4 % (11.5-14.5); WHITE BLOOD COUNT 4.8 K/uL (4.8-10.8)
[2017-09-24 08:30] VITALS: BP 111/66; PULSE 78; TEMP 98.3; O2SAT 97
[2017-09-24 08:37] LABS: ALB/GLOB RATIO 1.2 (1.0-2.1); ALBUMIN 3.2 g/dL (3.5-5.0); ALT/SGPT 25 U/L (21-72); AST/SGOT 27 U/L (17-59); BLOOD UREA NITROGEN 19 mg/dL (9-20); CALCIUM 8.4 mg/dl (8.6-10.4); GFR AFRICAN-AMERICAN > 60; GFR NON-AFRICAN AMERICAN > 60
[2017-09-24] MEDS: Metoprolol Succinate 50 mg XL Tab PO SCH (09:35)
--- NOTE | 2017-09-24 12:04 | CP.PCM.DIS ---
Provider - Provider Date of Admission: 09/17/17 17:25 Attending physician: Chrissie Colvin MD Primary care physician: Clive Colvin Consults: Dr. Aneudy López Time Spent in preparation of Discharge (in minutes): 45 Diagnosis - Discharge Diagnosis (1) Peripheral arterial disease Status: Acute (2) CAD, multiple vessel Status: Chronic Priority: Medium (3) Elevated BUN Status: Resolved Priority: Low (4) Occlusion of arterial bypass graft Status: Resolved Priority: High (5) Chest pain with moderate risk for cardiac etiology Status: Resolved Hospital Course - Lab Results Lab Results: Micro Results 09/21/17 22:24 Nose MRSA Culture - Final MRSA NOT DETECTED 09/20/17 17:45 Naris MRSA Culture (Admit) - Final MRSA NOT DETECTED Most Recent Lab Values WBC 4.8 K/uL (4.8-10.8) 09/24/17 08:02 RBC 3.57 Mil/uL (4.40-5.90) L 09/24/17 08:02 Hgb 10.8 g/dL (12.0-18.0) L 09/24/17 08:02 Hct 31.1 % (35.0-51.0) L 09/24/17 08:02 MCV 87.1 fL (80.0-94.0) 09/24/17 08:02 MCH 30.3 pg (27.0-31.0) 09/24/17 08:02 MCHC 34.8 g/dL (33.0-37.0) 09/24/17 08:02 RDW 14.4 % (11.5-14.5) 09/24/17 08:02 Plt Count 201 K/uL (130-400) 09/24/17 08:02 Manual Plt Count 176 K/uL (130-400) 09/20/17 06:59 MPV 7.9 fL (7.2-11.7) 09/24/17 08:02 Neut % (Auto) 58.6 % (50.0-75.0) 09/24/17 08:02 Lymph % (Auto) 22.2 % (20.0-40.0) 09/24/17 08:02 [place] % (Auto) 12.5 % (0.0-10.0) H 09/24/17 08:02 Eos % (Auto) 5.5 % (0.0-4.0) H 09/24/17 08:02 Baso % (Auto) 1.2 % (0.0-2.0) 09/24/17 08:02 Neut # (Auto) 2.8 K/uL (1.8-7.0) 09/24/17 08:02 Lymph # (Auto) 1.1 K/uL (1.0-4.3) 09/24/17 08:02 [place] # (Auto) 0.6 K/uL (0.0-0.8) 09/24/17 08:02 Eos # (Auto) 0.3 K/uL (0.0-0.7) 09/24/17 08:02 Baso # (Auto) 0.1 K/uL (0.0-0.2) 09/24/17 08:02 PT 11.0 SECONDS (9.7-12.2) 09/17/17 11:55 INR 1.0 09/17/17 11:55 APTT 84 SECONDS (21-34) H D 09/19/17 23:03 Sodium 139 mmol/L (132-148) 09/24/17 08:02 Potassium 4.0 mmol/L (3.6-5.2) 09/24/17 08:02 Chloride 105 mmol/L (98-107) 09/24/17 08:02 Carbon Dioxide 27 mmol/L (22-30) 09/24/17 08:02 Anion Gap 12 (10-20) 09/24/17 08:02 BUN 19 mg/dL (9-20) 09/24/17 08:02 Creatinine 1.1 mg/dL (0.8-1.5) 09/24/17 08:02 Est GFR ( Amer) > 60 09/24/17 08:02 Est GFR (Non-Af Amer) > 60 09/24/17 08:02 Random Glucose 99 mg/dL (75-110) 09/24/17 08:02 Calcium 8.4 mg/dl (8.6-10.4) L 09/24/17 08:02 Phosphorus 2.5 mg/dL (2.5-4.5) 09/22/17 07:11 Magnesium 2.0 mg/dL (1.6-2.3) 09/22/17 07:11 Total Bilirubin 1.0 mg/dL (0.2-1.3) 09/24/17 08:02 AST 27 U/L (17-59) 09/24/17 08:02 ALT 25 U/L (21-72) 09/24/17 08:02 Alkaline Phosphatase 47 U/L (38-126) 09/24/17 08:02 Total Creatine Kinase 102 U/L (55-170) 09/21/17 06:18 CK-MB (Mass) 0.34 ng/mL (0.0-3.38) 09/21/17 06:18 Troponin I < 0.0120 ng/mL (0.00-0.120) 09/21/17 06:18 Total Protein 5.9 g/dL (6.3-8.3) L 09/24/17 08:02 Albumin 3.2 g/dL (3.5-5.0) L 09/24/17 08:02 Globulin 2.7 gm/dL (2.2-3.9) 09/24/17 08:02 Albumin/Globulin Ratio 1.2 (1.0-2.1) 09/24/17 08:02 Triglycerides 54 mg/dL (0-149) 09/18/17 04:37 Cholesterol 166 mg/dL (0-199) 09/18/17 04:37 LDL Cholesterol Direct 105 mg/dL (0-129) 09/18/17 04:37 HDL Cholesterol 43 mg/dL (30-70) 09/18/17 04:37 Free T4 1.09 ng/dL (0.78-2.19) 09/18/17 04:37 TSH 3rd Generation 2.30 mIU/L (0.46-4.68) 09/18/17 04:37 Blood Type A POSITIVE 09/20/17 06:59 Antibody Screen Negative 09/20/17 06:59 - Hospital Course Hospital Course: This is a 76 y/o male who was admitted through the ER because of severe pain on his R leg everytime he walked. Vascular consultation was done who ordered vascular studies including CTA. He was found to have an occlusion of his previous femoral-popliteal bypass. He was thus scheduled for repeat bypass on the same leg. he had transient chest pain post-operatively. Serial EKG's and GAURAV ruled out an acute ischemic event and there was no further recurrence of the chest pain. He started ambulating when he was transferred to the floor and tolerated the therapy satisfactorily and refused rehab placement. He progressed quite well and he was discharged home to be followed up outpatient by the vascular surgeon and by myself. Discharge Exam - Head Exam Head Exam: NORMAL INSPECTION - Eye Exam Eye Exam: Normal appearance - ENT Exam ENT Exam: Normal Exam - Neck Exam Neck exam: Normal Inspection - Respiratory Exam Respiratory Exam: Clear to PA & Lateral, NORMAL BREATHING PATTERN - Cardiovascular Exam Cardiovascular Exam: REGULAR RHYTHM, RRR, +S1, +S2 - GI/Abdominal Exam GI & Abdominal Exam: Normal Bowel Sounds, Soft - Exam Bimanual exam: NORMAL BIMANUAL EXAM - Back Exam Additional comments: R leg warm to touch throughout. No discoloration. - Neurological Exam Neurological exam: Alert, Oriented x3 - Psychiatric Exam Psychiatric exam: Normal Affect, Normal Mood - Skin Skin Exam: Dry, Intact, Warm Discharge Plan - Follow Up Plan Condition: FAIR Disposition: HOME/ ROUTINE
--- NOTE | 2017-09-24 23:01 | CARD ---
APPROVED REPORT EKG Measurement Heart [id number] <Conclusion> Normal sinus rhythm Normal ECG
== END 2017-09-24 14:59 | disposition home or self-care (01) | DRG 254 ==
LOC: C.ER 10:02 → C.9E 17:25 → C.3T 17:25 → C.9E 18:35 → C.6T 21:12 → C.9I 09-20 13:10 → C.6T 09-22 00:35
PROVIDERS: ADMIT Internal Medicine Cardiovascular Disease; ATTEND Internal Medicine Cardiovascular Disease
PROC: 04WY07Z Revision of Autologous Tissue Substitute in Lower Artery, Open Approach (ICD-10-PCS; 2017-09-20)
PROC: 041K0ZH Bypass Right Femoral Artery to Right Femoral Artery, Open Approach (ICD-10-PCS; principal; 2017-09-20 13:00)
DX: I70.711 Atherosclerosis of other type of bypass graft(s) of the extremities with intermittent claudication, right leg (principal); I77.1 Stricture of artery; E78.5 Hyperlipidemia, unspecified; G47.00 Insomnia, unspecified; I12.9 Hypertensive chronic kidney disease with stage 1 through stage 4 chronic kidney disease, or unspecified chronic kidney disease; I25.10 Atherosclerotic heart disease of native coronary artery without angina pectoris; N18.9 Chronic kidney disease, unspecified; Z87.891 Personal history of nicotine dependence; Z95.5 Presence of coronary angioplasty implant and graft

== ENCOUNTER 2017-10-05 10:00 | Emergency (ER) | payer MEDICARE, BC ==
[2017-10-05 10:00] VITALS: BMI 27.3
[2017-10-05 10:11] VITALS: BP 151/72; PULSE 112; RESP 18; TEMP 98.2; O2SAT 99
--- NOTE | 2017-10-05 10:39 | C.PDOC ---
History Of Present Illness 28-miinv-mpo male was referred for wound evaluation by Dr. Orozco. S/P Right Femoral Popliteal Bypass Surgery 09/23/2017. Patient states he's concerned about bleeding from site. Denies any other physical complaints. Time Seen by Provider: 10/05/17 10:23 Chief Complaint (Nursing): Abnormal Skin Integrity History Per: Patient History/Exam Limitations: no limitations Onset/Duration Of Symptoms: Hrs Current Symptoms Are (Timing): Still Present Quality Of Symptoms: Painful Recent travel outside of the [place]: No Past Medical History Reviewed: Historical Data, Nursing Documentation, Vital Signs Vital Signs: Last Vital Signs Temp 98.2 F 10/05/17 10:08 Pulse 112 H 10/05/17 10:08 Resp 18 10/05/17 10:08 BP 151/72 H 10/05/17 10:08 Pulse Ox 99 10/05/17 10:41 - Medical History PMH: Benign Prostatic Hyperplasia, HTN, Hypercholesterolemia, Kidney Stones ( with stent placement), Chronic Kidney Disease Surgical History: Coronary Stent - [facility] Procedures BYPASS RIGHT FEMORAL ARTERY TO R FEMOR A, OPEN APPROACH (09/17/17) CYSTOSCOPY NEC (03/27/13) REMOV URETERAL DRAIN (06/15/13) REVISION OF AUTOL SUB IN LOW ART, OPEN APPROACH (09/17/17) TU REMOV URETER OBSTRUCT (04/09/13) URETERAL CATHETERIZATION (03/27/13) Family History: States: Unknown Family Hx - Social History Hx Tobacco Use: No Hx Alcohol Use: Yes Hx Substance Use: No - Immunization History Hx Tetanus Toxoid Vaccination: No Hx Influenza Vaccination: No Hx Pneumococcal Vaccination: No Review Of Systems Constitutional: Negative for: Fever, Chills Gastrointestinal: Negative for: Nausea, Vomiting, Diarrhea Skin: Positive for: Other (Right Femoral Popliteal Bypass Surgery wound evaluation ) Neurological: Negative for: Weakness, Numbness Physical Exam - Physical Exam Appears: Well, Non-toxic, No Acute Distress Skin: Other ( deferred to Dr. Orozco ) Extremity: Other (Right leg post changes) Neurological/Psych: Oriented x3, Normal Speech, Normal Cognition ED Course And Treatment O2 Sat by Pulse Oximetry: 99 (RA) Pulse Ox Interpretation: Normal Progress - Re-Evaluation Re-evaluation Note: 10/05/17 10:20 S/P EVAL DR OROZCO. CLEARED FOR DC OUTPT FU Disposition Counseled Patient/Family Regarding: Diagnosis, Need For Followup - Disposition Referrals: Bal Orozco Jr., MD [Staff Provider] - Disposition: HOME/ ROUTINE Disposition Time: 10:41 Condition: IMPROVED Instructions: Wound Care (DC) Forms: [facility] (Macedonian) - Clinical Impression Clinical Impression: Encounter for evaluation of wound - Scribe Statement The provider has reviewed the documentation as recorded by the Scribjunito Sloan All medical record entries made by the Ermiasibjunito were at my direction and personally dictated by me. I have reviewed the chart and agree that the record accurately reflects my personal performance of the history, physical exam, medical decision making, and the department course for this patient. I have also personally directed, reviewed, and agree with the discharge instructions and disposition.
== END 2017-10-05 10:53 | disposition home or self-care (01) ==
LOC: C.ER 10:00
DX: Z48.01 Encounter for change or removal of surgical wound dressing (principal)

== ENCOUNTER 2017-10-09 07:47 | Inpatient (IN) | payer MEDICARE, BC ==
[2017-10-09 07:49] VITALS: BMI 27.3
--- NOTE | 2017-10-09 08:20 | C.PDOC ---
History Of Present Illness 76-YEAR-OLD MALE, PRESENTS TO THE EMERGENCY DEPARTMENT FOR EVALUATION OF WOUND DEHISCENCE. PT WAS SEEN IN ER ON 10/[address] OROZCO FOR WOUND CHECK S/P Right Femoral Popliteal Bypass Surgery 09/23/2017. PT COMES IN TODAY AND IS COMPLAINING OF INCREASING DISCHARGE FROM LEG E/ SWELLING AND PAIN. PAIN IS CHRONIC S/P SURGERY. PATIENT DENIES ANY FEVER, NAUSEA/VOMITING, SHORTNESS OF BREATH OR CHEST PAIN. Time Seen by Provider: 10/09/17 08:05 Chief Complaint (Nursing): Medical Clearance History Per: Patient History/Exam Limitations: no limitations Current Symptoms Are (Timing): Still Present Past Medical History Reviewed: Historical Data, Nursing Documentation, Vital Signs Vital Signs: Last Vital Signs Temp 98 F 10/09/17 07:53 Pulse 107 H 10/09/17 09:24 Resp 16 10/09/17 09:24 BP 131/65 10/09/17 09:24 Pulse Ox 99 10/09/17 09:24 - Medical History PMH: Benign Prostatic Hyperplasia, HTN, Hypercholesterolemia, Kidney Stones ( with stent placement), Chronic Kidney Disease Surgical History: Coronary Stent - [facility] Procedures BYPASS RIGHT FEMORAL ARTERY TO R FEMOR A, OPEN APPROACH (09/17/17) CYSTOSCOPY NEC (03/27/13) REMOV URETERAL DRAIN (06/15/13) REVISION OF AUTOL SUB IN LOW ART, OPEN APPROACH (09/17/17) TU REMOV URETER OBSTRUCT (04/09/13) URETERAL CATHETERIZATION (03/27/13) Family History: States: No Known Family Hx - Social History Hx Tobacco Use: No Hx Alcohol Use: Yes Hx Substance Use: No - Immunization History Hx Tetanus Toxoid Vaccination: No Hx Influenza Vaccination: No Hx Pneumococcal Vaccination: No Review Of Systems Constitutional: Negative for: Fever Cardiovascular: Negative for: Chest Pain Respiratory: Negative for: Shortness of Breath Musculoskeletal: Positive for: Leg Pain (+SWELLING, DC) Physical Exam - Physical Exam Appears: Non-toxic, No Acute Distress Skin: Normal Color, Warm, Dry, No Rash Head: Normacephalic Eye(s): bilateral: PERRL Nose: Normal Oral Mucosa: Moist Lips: Normal Appearing Neck: Normal ROM Chest: Symmetrical Cardiovascular: Rhythm Regular, No Murmur Respiratory: Normal Breath Sounds, No Accessory Muscle Use Extremity: No Deformity, Other (RIGHT LOWER EXT: DEPENDENT EDEMA ON W DRAINING SEROUS DISCHARGE OUT OF WOUND +WOUND DEHISCENCE NO CELLULITIC COMPONENT) Pulses: Left Dorsalis Pedis: Normal, Right Dorsalis Pedis: Normal Neurological/Psych: Oriented x3, Normal Speech ED Course And Treatment - Laboratory Results Result Diagrams: 10/09/17 08:43 10/09/17 08:43 ECG: Interpreted By Me ECG Rhythm: Sinus Rhythm Rate From EC O2 Sat by Pulse Oximetry: 100 (RA) Pulse Ox Interpretation: Normal Progress - Re-Evaluation Re-evaluation Note: 10/09/17 08:00 d/w dr orozco accepts for admission - Data Reviewed Data Reviewed: Lab, Diagnostic imaging, EKG, Old records Disposition Counseled Patient/Family Regarding: Studies Performed, Diagnosis - Disposition Disposition: HOSPITALIZED Disposition Time: 08:19 Condition: STABLE - POA Present On Arrival: None - Clinical Impression Clinical Impression: Wound dehiscence, Wound discharge - Scribe Statement The provider has reviewed the documentation as recorded by the Scribe (Nickolas Santos) All medical record entries made by the Scribe were at my direction and personally dictated by me. I have reviewed the chart and agree that the record accurately reflects my personal performance of the history, physical exam, medical decision making, and the department course for this patient. I have also personally directed, reviewed, and agree with the discharge instructions and disposition. Decision To Admit - Pt Status Changed To: Hospital Disposition Of: Inpatient - Admit Certification Admit to Inpatient:: After my assessment, the patient will require hospitalization for at least two midnights. This is because of the severity of symptoms shown, intensity of services needed, and/or the medical risk in this patient being treated as an outpatient. - InPatient: Physician Admission Certification: I certify that this patient requires 2 or more midnights of care for the following reason:: SEE NOTE - . Bed Request Type: Regular Admitting Physician: Bal Orozco Jr. Patient Diagnosis: Wound dehiscence, Wound discharge
[2017-10-09] MEDS ORDERED: ceFAZolin 1 gm in NS 1 GM/100 ML BAG IVPB ONE (08:45)
[2017-10-09 08:47] LABS: BASO # 0.1 K/uL (0.0-0.2); BASO % 1.3 % (0.0-2.0); EOS % 0.8 % (0.0-4.0); HEMOGLOBIN 11.1 g/dL (12.0-18.0); LYMPH # 0.6 K/uL (1.0-4.3); MEAN CELL VOLUME 88.5 fL (80.0-94.0); MEAN CORPUSCULAR HEMOGLOBIN 30.9 pg (27.0-31.0); MEAN PLATELET VOLUME 7.9 fL (7.2-11.7); MONO # 0.8 K/uL (0.0-0.8); MONO % 13.8 % (0.0-10.0); NEUT # 4.4 K/uL (1.8-7.0); NEUT % 74.1 % (50.0-75.0); RBC 3.59 Mil/uL (4.40-5.90); RED CELL DISTRIBUTION WIDTH 14.5 % (11.5-14.5); WHITE BLOOD COUNT 5.9 K/uL (4.8-10.8)
[2017-10-09] MEDS ORDERED: ceFAZolin 1 GM in Sodium Chloride 0.9% 100 ML IVPB ONE (09:00)
[2017-10-09 09:09] LABS: BLOOD UREA NITROGEN 36 mg/dL (9-20); CALCIUM 9.3 mg/dl (8.6-10.4); GFR AFRICAN-AMERICAN > 60; GFR NON-AFRICAN AMERICAN 54
--- NOTE | 2017-10-09 09:19 | RAD ---
PROCEDURE: CHEST RADIOGRAPH, 1 VIEW HISTORY: MED CLEAR COMPARISON: Chest radiograph dated 09/17/2017. FINDINGS: LUNGS: Clear. PLEURA: No pneumothorax or pleural fluid seen. CARDIOVASCULAR: Atherosclerotic aortic calcifications. Cardiomediastinal silhouette within normal limits. OSSEOUS STRUCTURES: Unchanged. VISUALIZED UPPER ABDOMEN: Normal. OTHER FINDINGS: None. IMPRESSION: No active disease.
[2017-10-09] MEDS: Oxycodone/Acetaminophen 5/325 mg Tab PO PRN ×3 (12:15→22:29)
[2017-10-09] MEDS ORDERED: Oxycodone/Acetaminophen 5/325 mg Tab ONE (12:16)
--- NOTE | 2017-10-09 13:14 | CP.PCM.HP ---
History of Present Illness - History of Present Illness History of Present Illness: Surgery: Dr. López CC: drainage from surgical site HPI: Patient is a 76 y/o male who presents to ER from PMD complaining of drainage from right leg surgical wound. Patient was hospitalized in September for fem pop bypass w/ vein on 09/20/17. He states he was seen a couple weeks after surgery for staple removal. He states at that time the wound started draining blood tinged serous fluid. Since removal of myra the drainage has not ceased. He complains of swelling and redness to RLE that has progressively gotten worse. He states the pain has progressed since as well which has limited his mobility. He reports subjective fever and chills. He denies CP, SOB, n/f. PMH: PVD, CAD, HTN, HLD PSH: left bypass, cardiac stent, right fem-pop bypass with cryovein (09/20), VHR Social: denies ETOH or drug abuse, + tobacco history Present on Admission - Present on Admission Any Indicators Present on Admission: No Review of Systems - Review of Systems All systems: reviewed and no additional remarkable complaints except Review of Systems: unless stated in HPI Past Patient History - Infectious Disease Hx of Infectious Diseases: None - Past Medical History & Family History Past Medical History?: Yes - Past Social History Smoking Status: Former Smoker - CARDIAC Hx Hypercholesterolemia: Yes Hx Hypertension: Yes - PULMONARY Hx Respiratory Disorders: No - NEUROLOGICAL Hx Neurological Disorder: No - HEENT Hx HEENT Problems: No - RENAL Hx Chronic Kidney Disease: Yes Hx Kidney Stones: Yes (with stent placement) - ENDOCRINE/METABOLIC Hx Endocrine Disorders: No - HEMATOLOGICAL/ONCOLOGICAL Hx Blood Disorders: No - INTEGUMENTARY Hx Dermatological Problems: No - MUSCULOSKELETAL/RHEUMATOLOGICAL Hx Musculoskeletal Disorders: No - GASTROINTESTINAL Hx Gastrointestinal Disorders: Yes - GENITOURINARY/GYNECOLOGICAL Hx Genitourinary Disorders: Yes Hx Prostate Problems: Yes - PSYCHIATRIC Hx Substance Use: No - SURGICAL HISTORY Hx Coronary Stent: Yes - ANESTHESIA Hx Anesthesia: Yes Hx Anesthesia Reactions: No Hx Malignant Hyperthermia: No Meds Allergies/Adverse Reactions: Allergies Allergy/AdvReac Type Severity Reaction Status Date / Time No Known Allergies Allergy Verified 10/09/17 07:58 Physical Exam - Constitutional Appears: Non-toxic, No Acute Distress - Head Exam Head Exam: ATRAUMATIC, NORMOCEPHALIC - Eye Exam Eye Exam: EOMI, Normal appearance - ENT Exam ENT Exam: Mucous Membranes Moist - Respiratory Exam Respiratory Exam: NORMAL BREATHING PATTERN. absent: Respiratory Distress - Cardiovascular Exam Cardiovascular Exam: REGULAR RHYTHM. absent: Tachycardia - GI/Abdominal Exam GI & Abdominal Exam: Soft. absent: Distended, Tenderness - Extremities Exam Additional comments: RLE nonpitting edema up to knee, surgical incision dehiscence just inferior to knee with serous fluid drainage. mild cellulitis skin change in RLE area is tender to touch Results - Vital Signs Recent Vital Signs: Last Vital Signs Temp 98 F 10/09/17 07:53 Pulse 107 H 10/09/17 09:24 Resp 16 10/09/17 09:24 BP 131/65 10/09/17 09:24 Pulse Ox 100 10/09/17 09:54 - Labs Result Diagrams: 10/09/17 08:43 10/09/17 08:43 Labs: Laboratory Results - last 24 hr 10/09/17 10/09/17 08:43 08:43 WBC 5.9 RBC 3.59 L Hgb 11.1 L Hct 31.7 L MCV 88.5 MCH 30.9 MCHC 35.0 RDW 14.5 Plt Count 211 MPV 7.9 Neut % (Auto) 74.1 Lymph % (Auto) 10.0 L [place] % (Auto) 13.8 H Eos % (Auto) 0.8 Baso % (Auto) 1.3 Neut # (Auto) 4.4 Lymph # (Auto) 0.6 L [place] # (Auto) 0.8 Eos # (Auto) 0.0 Baso # (Auto) 0.1 Sodium 142 Potassium 3.9 Chloride 103 Carbon Dioxide 25 Anion Gap 18 BUN 36 H Creatinine 1.3 Est GFR ( Amer) > 60 Est GFR (Non-Af Amer) 54 Random Glucose 97 Calcium 9.3 Assessment & Plan - Assessment and Plan (Free Text) Assessment: 76 y/o male w/ RLE cellulitis and wound infection Plan: -admit to floor -IVABX -f/u culture -ok for diet -vitals per floor -PT eval -percocet for pain -elevate RLE continuously while in bed or seated -warm/cool compress to area prn -d/w Dr. Rene Trevino PGY3
[2017-10-09] MEDS: Vancomycin 1 gm/NS 200 ml 1 GM/200 ML BAG IVPB SCH (13:44)
[2017-10-09] MEDS ORDERED: ceFAZolin 1 GM in Sodium Chloride 0.9% 100 ML IVPB SCH (17:00)
[2017-10-09] MEDS: Metoprolol Succinate 50 mg XL Tab PO SCH (18:20)
[2017-10-10 01:02] VITALS: RESP 20
[2017-10-10] MEDS: Vancomycin 1 gm/NS 200 ml 1 GM/200 ML BAG IVPB SCH ×3 (01:02→23:32)
[2017-10-10] MEDS: Oxycodone/Acetaminophen 5/325 mg Tab PO PRN ×4 (02:29→21:29)
--- NOTE | 2017-10-10 08:57 | CP.PCM.PN ---
Subjective - Date & Time of Evaluation Date of Evaluation: 10/10/17 Time of Evaluation: 08:54 - Subjective Subjective: Patient doing well today. HE reports much less pain to the RLE. He reports significant improvement in leg swelling. He still complains of yellow clear fluid drainage. He states he attempted ambulating yesterday with a walker which was successful but difficult due to pain. He denies f/c/n/v. Objective - Vital Signs/Intake and Output Vital Signs (last 24 hours): Temp Pulse Resp BP Pulse Ox 98.3 F 94 H 20 121/62 97 10/10/17 08:00 10/10/17 08:00 10/10/17 08:00 10/10/17 08:00 10/10/17 08:00 - Medications Medications: Current Medications Aspirin (Aspirin Chewable) 81 mg PO DAILY [facility] Clopidogrel Bisulfate (Plavix) 75 mg PO DAILY [facility] Cyanocobalamin (Vitamin B12 1000 Mcg Tab) 2,000 mcg PO DAILY [facility] Heparin Sodium (Porcine) (Heparin) 5,000 units SC Q12 [facility] Vancomycin/Sodium Chloride (Vancomycin 1 Gm/Ns 200 Ml) 1 gm in 200 mls @ 133.333 mls/hr IVPB Q12H [facility] PRN Reason: Protocol Stop: 10/14/17 12:31 Last Admin: 10/10/17 01:02 Dose: 133.333 mls/hr Losartan Potassium (Cozaar) 100 mg PO DAILY [facility] Metoprolol Succinate (Toprol Xl) 50 mg PO BID [facility] Last Admin: 10/09/17 18:20 Dose: Not Given Oxycodone/Acetaminophen (Percocet 5/325 Mg Tab) 1 tab PO Q4H PRN PRN Reason: Pain, moderate (4-7) Stop: 10/12/17 10:56 Last Admin: 10/10/17 06:30 Dose: 1 tab Rosuvastatin Calcium (Crestor) 5 mg PO [facility] Last Admin: 10/09/17 22:29 Dose: 5 mg - Labs Labs: 10/09/17 08:43 10/09/17 08:43 - Constitutional Appears: Non-toxic, No Acute Distress - Head Exam Head Exam: ATRAUMATIC, NORMOCEPHALIC - Eye Exam Eye Exam: EOMI, Normal appearance - ENT Exam ENT Exam: Mucous Membranes Moist - Respiratory Exam Respiratory Exam: NORMAL BREATHING PATTERN. absent: Respiratory Distress - Cardiovascular Exam Cardiovascular Exam: REGULAR RHYTHM. absent: Tachycardia - Extremities Exam Additional comments: RLE edema significantly improved cellulitic changes to RLE improved -open surgical incision just inferior to Knee with serous fluid drainage, no foul odor or puss -leg much less tender than yesterday - Neurological Exam Neurological Exam: Alert, Awake Assessment and Plan - Assessment and Plan (Free Text) Assessment: 76 y/o male w/ RLE cellulitis s/p fem pop bypass Plan: -cont abx -f/u final culture -await PT eval and recs, patient may need JULIANE at discharge for assist with ambulation strength/gait training -cont RLE elevation -ambulate with assistance prn -cont reg diet -reinforce/change dressing prn -further recs per Dr. Rene HAILEchato PGY3
[2017-10-10] MEDS: Metoprolol Succinate 50 mg XL Tab PO SCH (09:38)
--- NOTE | 2017-10-10 17:03 | CP.PCM.CON ---
History of Present Illness - History of Present Illness History of Present Illness: RT is a 76 y/o male hypertensive, with known history of CAD S/P PCI, PAD s/p Fem-pop bypass a few weeks ago who was brought to the hospital because of wound dehiscence and infection. Patient claims that he has had problem after he came home from the hospital and noted progressive swelling and pain on the operated R leg. He later noted yellowish fluid discharge from the same leg. He was seen by the surgeon in the office and advised to be admitted for further treatment. He denies any fever on pain on the R foot. He claims that he has tried ambulating with walker and would develop on and off chest pain everytime he walked. Chest pain lasted for several minutes and was relieved by rest. Ambulation became progressively became difficult and he needed a wheelchair to move around at home. From then on it the swelling and pain became worse as it became more difficult to move or even lift his r leg. Review of Systems - Review of Systems All systems: reviewed and no additional remarkable complaints except - Constitutional Constitutional: Fatigue, Weakness - Cardiovascular Cardiovascular: Chest Pain, Edema, Leg Edema, Leg Ulcers, Palpitations - Respiratory Respiratory: Cough, Dyspnea - Neurological Neurological: Numbness - Psychiatric Psychiatric: As Per HPI - Endocrine Endocrine: As Per HPI - Hematologic/Lymphatic Hematologic: As Per HPI Past Patient History - Infectious Disease Hx of Infectious Diseases: None - Tetanus Immunizations Tetanus Immunization: Up to Date - Past Medical History & Family History Past Medical History?: Yes - Past Social History Smoking Status: Former Smoker Alcohol: Social Drugs: Denies Home Situation {Lives}: Alone - CARDIAC Hx Cardiac Disorders: Yes Hx Angina: Yes Hx Congestive Heart Failure: No Hx Heart Attack: No Hx Heart Murmur: No Hx Hypercholesterolemia: Yes Hx Hypertension: Yes - PULMONARY Hx Respiratory Disorders: No - NEUROLOGICAL Hx Neurological Disorder: No - HEENT Hx HEENT Problems: No - RENAL Hx Chronic Kidney Disease: Yes Hx Kidney Stones: Yes (with stent placement) Hx Neurogenic Bladder: No Hx Pyelonephritis: No Hx Renal (Kidney) Cancer: No - ENDOCRINE/METABOLIC Hx Endocrine Disorders: No - HEMATOLOGICAL/ONCOLOGICAL Hx Blood Disorders: No Hx Chemotherapy: Yes - INTEGUMENTARY Hx Dermatological Problems: No - MUSCULOSKELETAL/RHEUMATOLOGICAL Hx Musculoskeletal Disorders: No Hx Falls: No - GASTROINTESTINAL Hx Gastrointestinal Disorders: Yes - GENITOURINARY/GYNECOLOGICAL Hx Genitourinary Disorders: Yes Hx Prostate Problems: Yes - PSYCHIATRIC Hx Substance Use: No - SURGICAL HISTORY Hx Coronary Stent: Yes - ANESTHESIA Hx Anesthesia: Yes Hx Anesthesia Reactions: No Hx Malignant Hyperthermia: No Meds Allergies/Adverse Reactions: Allergies Allergy/AdvReac Type Severity Reaction Status Date / Time No Known Allergies Allergy Verified 10/09/17 07:58 - Medications Medications: Current Medications Acetaminophen (Tylenol 325mg Tab) 650 mg PO QID [facility] Aspirin (Aspirin Chewable) 81 mg PO DAILY [facility] Last Admin: 10/10/17 09:38 Dose: 81 mg Clopidogrel Bisulfate (Plavix) 75 mg PO DAILY [facility] Last Admin: 10/10/17 09:38 Dose: 75 mg Cyanocobalamin (Vitamin B12 1000 Mcg Tab) 2,000 mcg PO DAILY [facility] Last Admin: 10/10/17 09:38 Dose: 2,000 mcg Heparin Sodium (Porcine) (Heparin) 5,000 units SC Q12 [facility] Last Admin: 10/10/17 09:41 Dose: 5,000 units Vancomycin/Sodium Chloride (Vancomycin 1 Gm/Ns 200 Ml) 1 gm in 200 mls @ 133.333 mls/hr IVPB Q12H [facility] PRN Reason: Protocol Stop: 10/14/17 12:31 Last Admin: 10/10/17 13:18 Dose: 133.333 mls/hr Dextrose/Sodium Chloride (Dextrose 5%/0.45% Ns 1000 Ml) 1,000 mls @ 50 mls/hr IV .Q20H [facility] Isosorbide Mononitrate (Imdur) 60 mg PO DAILY [facility] Losartan Potassium (Cozaar) 50 mg PO DAILY [facility] Metoprolol Tartrate (Lopressor) 100 mg PO BID [facility] Oxycodone/Acetaminophen (Percocet 5/325 Mg Tab) 1 tab PO Q4H PRN PRN Reason: Pain, moderate (4-7) Stop: 10/12/17 10:56 Last Admin: 10/10/17 11:17 Dose: 1 tab Pneumococcal Polyvalent Vaccine (Pneumovax 23 Vaccine) 0.5 ml IM .ONCE ONE Stop: 10/12/17 10:01 Rosuvastatin Calcium (Crestor) 5 mg PO [facility] Last Admin: 10/09/17 22:29 Dose: 5 mg Physical Exam - Constitutional Appears: No Acute Distress - Eye Exam Eye Exam: Normal appearance - ENT Exam ENT Exam: Normal Exam - Neck Exam Neck exam: Positive for: Normal Inspection - Respiratory Exam Respiratory Exam: Clear to Auscultation Bilateral, NORMAL BREATHING PATTERN - Cardiovascular Exam Cardiovascular Exam: Tachycardia, REGULAR RHYTHM, +S1, +S2, +S4 - GI/Abdominal Exam GI & Abdominal Exam: Normal Bowel Sounds, Soft - Rectal Exam Rectal Exam: Deferred - Extremities Exam Additional comments: Both legs and feet are warm to touch, Post tibial pulses felt bilaterally, unable to feel dorsalis pedis on R, R calf muscle area swollen and tender to touch and movement. most of the sutures are gone and there is some dehiscence noted at intervals along the suture line but incision generally looks clean - Neurological Exam Neurological exam: Alert, Oriented x3 - Psychiatric Exam Psychiatric exam: Normal Affect, Normal Mood - Skin Skin Exam: Dry, Normal Color, Warm Results - Vital Signs Recent Vital Signs: Last Vital Signs Temp 99.8 F H 10/10/17 16:00 Pulse 103 H 10/10/17 16:00 Resp 20 10/10/17 16:00 BP 144/87 10/10/17 16:00 Pulse Ox 97 10/10/17 16:00 - Labs Result Diagrams: 10/09/17 08:43 10/09/17 08:43 Labs: Laboratory Results - last 24 hr 10/10/17 10/10/17 10/10/17 07:21 11:11 16:28 POC Glucose (mg/dL) 140 H 93 104 Assessment & Plan (1) Wound infection Assessment and Plan: Patient currently on Vancomycin as per vascular surgeon. wound and blood c/s sent. No growth reported yet. Local dressing changes also noted Status: Acute Priority: High (2) Peripheral arterial disease Assessment and Plan: as above. S/P R fem-pop bypass surgery. Status: Acute Priority: High (3) Chest pain with moderate risk for cardiac etiology Assessment and Plan: Patient describes a few episodes of chest pain with exertion. Patient has known CAD and will adjust meds for now as patient also tachycardic. This may also be from the slight fever and pain and discomfort he feels at this time. Will increase metoprolol and start on Isosorbide. Will also reduce Losartan and monitor BP in case he develops hypotension from the med adjustment. Will order jimbo and EKG for now. Status: Acute Priority: High (4) Prerenal azotemia Assessment and Plan: Bun quite elevated with normal creatinine. Will give some IVF for now and repeat BMP in am. Status: Acute Priority: Medium
[2017-10-10] MEDS: Dextrose 5%/0.45% NS 1,000 ML IV SCH (17:32)
[2017-10-10 18:46] LABS: CK-MB 0.66 ng/mL (0.0-3.38); TROPONIN I 0.021 ng/mL (0.00-0.120)
--- NOTE | 2017-10-10 22:22 | CARD ---
APPROVED REPORT EKG Measurement Heart [id number] <Conclusion> Normal sinus rhythm Normal ECG
[2017-10-11 07:24] LABS: BASO % 0.9 % (0.0-2.0); EOS # 0.1 K/uL (0.0-0.7); EOS % 1.1 % (0.0-4.0); HEMOGLOBIN 9.5 g/dL (12.0-18.0); LYMPH # 0.9 K/uL (1.0-4.3); MEAN CELL VOLUME 87.1 fL (80.0-94.0); MEAN CORPUSCULAR HEMOGLOBIN 30.7 pg (27.0-31.0); MEAN CORPUSCULAR HGB CONC 35.2 g/dL (33.0-37.0); MEAN PLATELET VOLUME 8.1 fL (7.2-11.7); MONO # 0.7 K/uL (0.0-0.8); MONO % 13.6 % (0.0-10.0); NEUT # 3.4 K/uL (1.8-7.0); NEUT % 66.4 % (50.0-75.0); NRBC % 0.1 % (0.0-2.0); RBC 3.09 Mil/uL (4.40-5.90); RED CELL DISTRIBUTION WIDTH 14.3 % (11.5-14.5); WHITE BLOOD COUNT 5.1 K/uL (4.8-10.8)
[2017-10-11 07:48] LABS: CK-MB 0.68 ng/mL (0.0-3.38)
[2017-10-11 07:49] LABS: ALBUMIN 2.8 g/dL (3.5-5.0); ALT/SGPT 85 U/L (21-72); AST/SGOT 73 U/L (17-59); BLOOD UREA NITROGEN 18 mg/dL (9-20); GFR AFRICAN-AMERICAN > 60; GFR NON-AFRICAN AMERICAN > 60; HDL CHOLESTEROL 24 mg/dL (30-70)
[2017-10-11 07:58] LABS: LDL CHOLESTEROL 50 mg/dL (0-129)
[2017-10-11] MEDS: Vancomycin 1 gm/NS 200 ml 1 GM/200 ML BAG IVPB SCH (12:07)
[2017-10-11] MEDS: Dextrose 5%/0.45% NS 1,000 ML IV SCH (12:10)
--- NOTE | 2017-10-11 15:52 | CP.PCM.PN ---
Subjective - Date & Time of Evaluation Date of Evaluation: 10/11/17 Time of Evaluation: 15:40 - Subjective Subjective: Patient feeling better. moving leg a little better and tolerating pain better. VS stable, afebrile, less tachy today Wound c/s noted- grew E Coli and Enterobacter Objective - Vital Signs/Intake and Output Vital Signs (last 24 hours): Temp Pulse Resp BP Pulse Ox 97.7 F 89 20 132/68 97 10/11/17 08:00 10/11/17 08:00 10/11/17 08:00 10/11/17 08:00 10/11/17 08:00 Intake and Output: 10/11/17 10/11/17 06:59 18:59 Intake Total 1000 Output Total 400 Balance 600 - Medications Medications: Current Medications Acetaminophen (Tylenol 325mg Tab) 650 mg PO Q6 PRN PRN Reason: fever/pain Last Admin: 10/11/17 05:41 Dose: 650 mg Aspirin (Aspirin Chewable) 81 mg PO DAILY [facility] Last Admin: 10/11/17 09:21 Dose: 81 mg Clopidogrel Bisulfate (Plavix) 75 mg PO DAILY [facility] Last Admin: 10/11/17 09:21 Dose: 75 mg Cyanocobalamin (Vitamin B12 1000 Mcg Tab) 2,000 mcg PO DAILY [facility] Last Admin: 10/11/17 09:21 Dose: 2,000 mcg Heparin Sodium (Porcine) (Heparin) 5,000 units SC Q12 [facility] Last Admin: 10/11/17 09:21 Dose: 5,000 units Vancomycin/Sodium Chloride (Vancomycin 1 Gm/Ns 200 Ml) 1 gm in 200 mls @ 133.333 mls/hr IVPB Q12H [facility] PRN Reason: Protocol Stop: 10/14/17 12:31 Last Admin: 10/11/17 12:07 Dose: 133.333 mls/hr Dextrose/Sodium Chloride (Dextrose 5%/0.45% Ns 1000 Ml) 1,000 mls @ 50 mls/hr IV .Q20H [facility] Last Admin: 10/11/17 12:10 Dose: Not Given Isosorbide Mononitrate (Imdur) 60 mg PO DAILY [facility] Last Admin: 10/11/17 09:21 Dose: 60 mg Losartan Potassium (Cozaar) 50 mg PO DAILY [facility] Last Admin: 10/11/17 09:21 Dose: 50 mg Metoprolol Tartrate (Lopressor) 100 mg PO BID [facility] Last Admin: 10/11/17 09:21 Dose: 100 mg Oxycodone/Acetaminophen (Percocet 5/325 Mg Tab) 1 tab PO Q4H PRN PRN Reason: Pain, moderate (4-7) Stop: 10/12/17 10:56 Last Admin: 10/10/17 21:29 Dose: 1 tab Pneumococcal Polyvalent Vaccine (Pneumovax 23 Vaccine) 0.5 ml IM .ONCE ONE Stop: 10/12/17 10:01 Rosuvastatin Calcium (Crestor) 5 mg PO HS [facility] Last Admin: 10/10/17 21:13 Dose: 5 mg - Labs Labs: 10/11/17 07:08 10/11/17 07:08 - Constitutional Appears: No Acute Distress - ENT Exam ENT Exam: Normal Exam - Respiratory Exam Respiratory Exam: Clear to Ausculation Bilateral, NORMAL BREATHING PATTERN - Cardiovascular Exam Cardiovascular Exam: REGULAR RHYTHM, RRR, +S1, +S2 - GI/Abdominal Exam GI & Abdominal Exam: Soft, Normal Bowel Sounds - Extremities Exam Additional comments: R leg and foot warm, wound still draining yellowish fluid, wound looks clean - Neurological Exam Neurological Exam: Alert, Awake, Oriented x3 - Psychiatric Exam Psychiatric exam: Normal Affect, Normal Mood - Skin Skin Exam: Dry, Normal Color, Warm Assessment and Plan (1) Wound infection Assessment & Plan: wound c/s noted. Currently on IV Vanco. Mx as per surgeon Status: Acute (2) Peripheral arterial disease Assessment & Plan: s/sp fem pop complicated by wound dehiscence and infection. Started to get OOB and to have PT for possible rehab if patient agrees Status: Acute (3) Chest pain with moderate risk for cardiac etiology Assessment & Plan: No further chest pain and less tachycardic, cardiac enzymes and EKG no acute changes Patient will need further cardiac eval once current condition gets resolved tolerating adjustment of meds. Status: Acute (4) Prerenal azotemia Assessment & Plan: normal BUN/creatinine today. Will d/c IV after bag is finished. Patient eating and drinking well. Status: Acute
--- NOTE | 2017-10-11 16:38 | CP.PCM.PN ---
Subjective - Date & Time of Evaluation Date of Evaluation: 10/11/17 Time of Evaluation: 06:40 - Subjective Subjective: Vascular Surgery- Dr. López Pt seen and examined at bedside this AM. nursing notes reviewed. Dressing changed at bedside. Purulent drainage from wound. Swelling decreased from yesterday. Improved ROM. Denies fevers, chills, chest pain, shortness of breath , nausea, vomiting, diarrhea Objective - Vital Signs/Intake and Output Vital Signs (last 24 hours): Temp Pulse Resp BP Pulse Ox 97.7 F 89 20 132/68 97 10/11/17 08:00 10/11/17 08:00 10/11/17 08:00 10/11/17 08:00 10/11/17 08:00 Intake and Output: 10/11/17 10/11/17 06:59 18:59 Intake Total 1000 1100 Output Total 400 Balance 600 1100 - Medications Medications: Current Medications Acetaminophen (Tylenol 325mg Tab) 650 mg PO Q6 PRN PRN Reason: fever/pain Last Admin: 10/11/17 05:41 Dose: 650 mg Aspirin (Aspirin Chewable) 81 mg PO DAILY [facility] Last Admin: 10/11/17 09:21 Dose: 81 mg Clopidogrel Bisulfate (Plavix) 75 mg PO DAILY [facility] Last Admin: 10/11/17 09:21 Dose: 75 mg Cyanocobalamin (Vitamin B12 1000 Mcg Tab) 2,000 mcg PO DAILY [facility] Last Admin: 10/11/17 09:21 Dose: 2,000 mcg Heparin Sodium (Porcine) (Heparin) 5,000 units SC Q12 [facility] Last Admin: 10/11/17 09:21 Dose: 5,000 units Vancomycin/Sodium Chloride (Vancomycin 1 Gm/Ns 200 Ml) 1 gm in 200 mls @ 133.333 mls/hr IVPB Q12H [facility] PRN Reason: Protocol Stop: 10/14/17 12:31 Last Admin: 10/11/17 12:07 Dose: 133.333 mls/hr Dextrose/Sodium Chloride (Dextrose 5%/0.45% Ns 1000 Ml) 1,000 mls @ 50 mls/hr IV .Q20H [facility] Last Admin: 10/11/17 12:10 Dose: Not Given Isosorbide Mononitrate (Imdur) 60 mg PO DAILY [facility] Last Admin: 10/11/17 09:21 Dose: 60 mg Losartan Potassium (Cozaar) 50 mg PO DAILY [facility] Last Admin: 10/11/17 09:21 Dose: 50 mg Metoprolol Tartrate (Lopressor) 100 mg PO BID [facility] Last Admin: 10/11/17 09:21 Dose: 100 mg Oxycodone/Acetaminophen (Percocet 5/325 Mg Tab) 1 tab PO Q4H PRN PRN Reason: Pain, moderate (4-7) Stop: 10/12/17 10:56 Last Admin: 10/10/17 21:29 Dose: 1 tab Pneumococcal Polyvalent Vaccine (Pneumovax 23 Vaccine) 0.5 ml IM .ONCE ONE Stop: 10/12/17 10:01 Rosuvastatin Calcium (Crestor) 5 mg PO HS [facility] Last Admin: 10/10/17 21:13 Dose: 5 mg - Labs Labs: 10/11/17 07:08 10/11/17 07:08 - Constitutional Appears: Non-toxic, No Acute Distress - Head Exam Head Exam: ATRAUMATIC - Eye Exam Eye Exam: EOMI - ENT Exam ENT Exam: Mucous Membranes Moist - Respiratory Exam Respiratory Exam: NORMAL BREATHING PATTERN. absent: Accessory Muscle Use, Respiratory Distress - Cardiovascular Exam Cardiovascular Exam: +S1, +S2. absent: Bradycardia, Tachycardia - GI/Abdominal Exam GI & Abdominal Exam: Soft. absent: Distended, Firm, Guarding, Rigid, Tenderness - Extremities Exam Extremities Exam: Pedal Edema, Tenderness Additional comments: RLE purluent drainage from incision site. Improved ROM from yesterday. - Neurological Exam Neurological Exam: Alert, Awake, Oriented x3 - Skin Skin Exam: Warm Assessment and Plan - Assessment and Plan (Free Text) Assessment: 76M w/ RLE cellulitis s/p fem pop bypass Plan: - IV Abx -f/u wound cx - PT, OOB ambulate w/ cane - Elevate leg - regular diet - change dressing PRN - social work consult for JULIANE placement; PT recs - discussed w/ Dr. López surgical attending PGY1
--- NOTE | 2017-10-11 19:25 | CARD ---
APPROVED REPORT EKG Measurement Heart [id number] <Conclusion> Sinus tachycardia Otherwise normal ECG
[2017-10-11] MEDS: Oxycodone/Acetaminophen 5/325 mg Tab PO PRN (21:16)
[2017-10-12] MEDS: Vancomycin 1 gm/NS 200 ml 1 GM/200 ML BAG IVPB SCH ×2 (01:14→12:26)
[2017-10-12] MEDS: Oxycodone/Acetaminophen 5/325 mg Tab PO PRN (03:22)
[2017-10-12 08:15] LABS: BASO % 1.3 % (0.0-2.0); EOS # 0.1 K/uL (0.0-0.7); EOS % 1.9 % (0.0-4.0); LYMPH # 1.2 K/uL (1.0-4.3); LYMPH % 30.4 % (20.0-40.0); MEAN CELL VOLUME 87.7 fL (80.0-94.0); MEAN CORPUSCULAR HGB CONC 35.3 g/dL (33.0-37.0); MEAN PLATELET VOLUME 7.9 fL (7.2-11.7); MONO # 0.6 K/uL (0.0-0.8); MONO % 15.6 % (0.0-10.0); NEUT # 1.9 K/uL (1.8-7.0); NEUT % 50.8 % (50.0-75.0); NRBC % 0.1 % (0.0-2.0); RBC 2.91 Mil/uL (4.40-5.90); RED CELL DISTRIBUTION WIDTH 14.3 % (11.5-14.5); WHITE BLOOD COUNT 3.8 K/uL (4.8-10.8)
--- NOTE | 2017-10-12 08:41 | CP.PCM.PN ---
Subjective - Date & Time of Evaluation Date of Evaluation: 10/12/17 Time of Evaluation: 07:10 - Subjective Subjective: Vascular Surgery- Dr. López Pt seen and examined at bedside this AM. nursing notes reviewed. Dressing changed at bedside. serous drainage from wound. Swelling decreased from yesterday. Improved ROM. Denies fevers, chills, chest pain, shortness of breath , nausea, vomiting, diarrhea Objective - Vital Signs/Intake and Output Vital Signs (last 24 hours): Temp Pulse Resp BP Pulse Ox 98.1 F 80 20 120/68 98 10/12/17 07:57 10/12/17 07:57 10/12/17 07:57 10/12/17 07:57 10/12/17 07:57 Intake and Output: 10/12/17 10/12/17 06:59 18:59 Intake Total 460 Balance 460 - Medications Medications: Current Medications Acetaminophen (Tylenol 325mg Tab) 650 mg PO Q6 PRN PRN Reason: fever/pain Last Admin: 10/11/17 05:41 Dose: 650 mg Aspirin (Aspirin Chewable) 81 mg PO DAILY [facility] Last Admin: 10/11/17 09:21 Dose: 81 mg Clopidogrel Bisulfate (Plavix) 75 mg PO DAILY [facility] Last Admin: 10/11/17 09:21 Dose: 75 mg Cyanocobalamin (Vitamin B12 1000 Mcg Tab) 2,000 mcg PO DAILY [facility] Last Admin: 10/11/17 09:21 Dose: 2,000 mcg Heparin Sodium (Porcine) (Heparin) 5,000 units SC Q12 [facility] Last Admin: 10/11/17 21:14 Dose: 5,000 units Vancomycin/Sodium Chloride (Vancomycin 1 Gm/Ns 200 Ml) 1 gm in 200 mls @ 133.333 mls/hr IVPB Q12H [facility] PRN Reason: Protocol Stop: 10/14/17 12:31 Last Admin: 10/12/17 01:14 Dose: 133.333 mls/hr Isosorbide Mononitrate (Imdur) 60 mg PO DAILY [facility] Last Admin: 10/11/17 09:21 Dose: 60 mg Losartan Potassium (Cozaar) 50 mg PO DAILY [facility] Last Admin: 10/11/17 09:21 Dose: 50 mg Metoprolol Tartrate (Lopressor) 100 mg PO BID [facility] Last Admin: 05/11/18 17:12 Dose: 100 mg Oxycodone/Acetaminophen (Percocet 5/325 Mg Tab) 1 tab PO Q4H PRN PRN Reason: Pain, moderate (4-7) Stop: 10/12/17 10:56 Last Admin: 10/12/17 03:22 Dose: 1 tab Pneumococcal Polyvalent Vaccine (Pneumovax 23 Vaccine) 0.5 ml IM .ONCE ONE Stop: 10/12/17 10:01 Rosuvastatin Calcium (Crestor) 5 mg PO HS [facility] Last Admin: 10/11/17 21:14 Dose: 5 mg - Labs Labs: 10/12/17 08:03 10/11/17 07:08 - Constitutional Appears: Non-toxic, No Acute Distress - Head Exam Head Exam: ATRAUMATIC - Eye Exam Eye Exam: EOMI. absent: Scleral icterus - ENT Exam ENT Exam: Mucous Membranes Moist - Respiratory Exam Respiratory Exam: absent: Respiratory Distress - Cardiovascular Exam Cardiovascular Exam: +S1, +S2. absent: Bradycardia, Tachycardia - GI/Abdominal Exam GI & Abdominal Exam: Soft. absent: Firm, Guarding, Rigid, Tenderness - Extremities Exam Additional comments: RLE serous drainage from wound Dressing changed at bedside - Neurological Exam Neurological Exam: Alert, Awake, Oriented x3 - Skin Skin Exam: Intact, Warm Assessment and Plan - Assessment and Plan (Free Text) Assessment: 76M w/ RLE cellulitis s/p fem pop bypass Plan: - IV Abx - f/u wound cx - PT, OOB ambulate w/ cane - Elevate leg - regular diet - change dressing PRN - social work consult for JULIANE placement; PT recs - no acute surgical intervention indicated at this time - discussed w/ Dr. López surgical attending PGY1
[2017-10-12 08:59] LABS: ALBUMIN 2.6 g/dL (3.5-5.0); ALT/SGPT 87 U/L (21-72); AST/SGOT 62 U/L (17-59); BLOOD UREA NITROGEN 23 mg/dL (9-20); CALCIUM 8.5 mg/dl (8.6-10.4); GFR AFRICAN-AMERICAN > 60; GFR NON-AFRICAN AMERICAN > 60
[2017-10-12] MEDS ORDERED: Pneumococcal 23-Valent Vaccine IM ONE (10:00)
[2017-10-13] MEDS: Vancomycin 1 gm/NS 200 ml 1 GM/200 ML BAG IVPB SCH ×2 (00:30→12:08)
--- NOTE | 2017-10-13 11:58 | CP.PCM.PN ---
Subjective - Date & Time of Evaluation Date of Evaluation: 10/13/17 Time of Evaluation: 11:56 - Subjective Subjective: Vascular Surgery Progress Note for Dr. López This 76M was seen and examined at bedside this AM. No acute events overnight. He informed me that at night he was old not to get out of bed even for rest room purposes. I discussed with staff that I do not want him restricted to bed at any time and that he is encouraged to get out of bed. Time of day should not be a limiting factor. Denies fevers, chills, chest pain, shortness of breath, nausea, vomiting, diarrhea Objective - Vital Signs/Intake and Output Vital Signs (last 24 hours): Temp Pulse Resp BP Pulse Ox 98.1 F 90 20 136/68 97 10/13/17 08:12 10/13/17 08:12 10/13/17 08:12 10/13/17 08:12 10/13/17 08:12 Intake and Output: 10/13/17 10/13/17 06:59 18:59 Intake Total 500 Output Total 600 Balance -100 - Medications Medications: Current Medications Acetaminophen (Tylenol 325mg Tab) 650 mg PO Q6 PRN PRN Reason: fever/pain Last Admin: 10/12/17 12:34 Dose: 650 mg Aspirin (Aspirin Chewable) 81 mg PO DAILY [facility] Last Admin: 10/13/17 09:31 Dose: 81 mg Clopidogrel Bisulfate (Plavix) 75 mg PO DAILY [facility] Last Admin: 10/13/17 09:31 Dose: 75 mg Cyanocobalamin (Vitamin B12 1000 Mcg Tab) 2,000 mcg PO DAILY [facility] Last Admin: 10/13/17 09:31 Dose: 2,000 mcg Vancomycin/Sodium Chloride (Vancomycin 1 Gm/Ns 200 Ml) 1 gm in 200 mls @ 133.333 mls/hr IVPB Q12H [facility] PRN Reason: Protocol Stop: 10/14/17 12:31 Last Admin: 10/13/17 00:30 Dose: 133.333 mls/hr Isosorbide Mononitrate (Imdur) 60 mg PO DAILY [facility] Last Admin: 10/13/17 09:31 Dose: 60 mg Losartan Potassium (Cozaar) 50 mg PO DAILY [facility] Last Admin: 10/13/17 09:31 Dose: 50 mg Metoprolol Tartrate (Lopressor) 100 mg PO BID [facility] Last Admin: 10/13/17 09:31 Dose: 100 mg Rosuvastatin Calcium (Crestor) 5 mg PO HS [facility] Last Admin: 10/12/17 21:38 Dose: 5 mg - Labs Labs: 10/12/17 08:03 10/12/17 08:03 - Constitutional Appears: Non-toxic, No Acute Distress - Head Exam Head Exam: ATRAUMATIC - Eye Exam Eye Exam: EOMI. absent: Scleral icterus - ENT Exam ENT Exam: Mucous Membranes Moist - Respiratory Exam Respiratory Exam: absent: Respiratory Distress - Cardiovascular Exam Cardiovascular Exam: +S1, +S2. absent: Bradycardia, Tachycardia - GI/Abdominal Exam GI & Abdominal Exam: Soft. absent: Firm, Guarding, Rigid, Tenderness - Extremities Exam Additional comments: RLE serous drainage from wound - Neurological Exam Neurological Exam: Alert, Awake, Oriented x3 - Skin Skin Exam: Intact, Warm Assessment and Plan - Assessment and Plan (Free Text) Assessment: 76M w/ RLE cellulitis s/p fem pop bypass Plan: - IV Abx - f/u wound cx - PT, OOB ambulate w/ cane - Elevate leg - regular diet - Plan for D/C to rehab saturday if placement is available Fuentes Garrison PGY2
--- NOTE | 2017-10-13 19:50 | CP.PCM.PN ---
Subjective - Date & Time of Evaluation Date of Evaluation: 10/13/17 Time of Evaluation: 19:30 - Subjective Subjective: -Patient still complains of difficulty getting OOB and walking because of leg wound and swelling -Leg wound still draining yellowish purulent material - Objective - Vital Signs/Intake and Output Vital Signs (last 24 hours): Temp Pulse Resp BP Pulse Ox 98.9 F 83 20 124/49 L 96 10/13/17 16:00 10/13/17 16:00 10/13/17 16:00 10/13/17 16:00 10/13/17 16:00 - Medications Medications: Current Medications Acetaminophen (Tylenol 325mg Tab) 650 mg PO Q6 PRN PRN Reason: fever/pain Last Admin: 10/12/17 12:34 Dose: 650 mg Aspirin (Aspirin Chewable) 81 mg PO DAILY [facility] Last Admin: 10/13/17 09:31 Dose: 81 mg Clopidogrel Bisulfate (Plavix) 75 mg PO DAILY [facility] Last Admin: 10/13/17 09:31 Dose: 75 mg Cyanocobalamin (Vitamin B12 1000 Mcg Tab) 2,000 mcg PO DAILY [facility] Last Admin: 10/13/17 09:31 Dose: 2,000 mcg Vancomycin/Sodium Chloride (Vancomycin 1 Gm/Ns 200 Ml) 1 gm in 200 mls @ 133.333 mls/hr IVPB Q12H [facility] PRN Reason: Protocol Stop: 10/14/17 12:31 Last Admin: 10/13/17 12:08 Dose: 133.333 mls/hr Isosorbide Mononitrate (Imdur) 60 mg PO DAILY [facility] Last Admin: 10/13/17 09:31 Dose: 60 mg Losartan Potassium (Cozaar) 50 mg PO DAILY [facility] Last Admin: 10/13/17 09:31 Dose: 50 mg Metoprolol Tartrate (Lopressor) 100 mg PO BID [facility] Last Admin: 10/13/17 17:59 Dose: 100 mg Rosuvastatin Calcium (Crestor) 5 mg PO HS [facility] Last Admin: 10/12/17 21:38 Dose: 5 mg - Labs Labs: 10/12/17 08:03 10/12/17 08:03 - Constitutional Appears: No Acute Distress - Head Exam Head Exam: NORMAL INSPECTION - Eye Exam Eye Exam: Normal appearance - Neck Exam Neck Exam: Full ROM, Normal Inspection - Respiratory Exam Respiratory Exam: Clear to Ausculation Bilateral, NORMAL BREATHING PATTERN - Cardiovascular Exam Cardiovascular Exam: REGULAR RHYTHM, +S1, +S2 - GI/Abdominal Exam GI & Abdominal Exam: Soft, Normal Bowel Sounds - Extremities Exam Additional comments: essentially unchanged - Neurological Exam Neurological Exam: Alert, Oriented x3 - Skin Skin Exam: Dry, Normal Color, Warm Assessment and Plan (1) Wound infection Status: Acute (2) Peripheral arterial disease Status: Acute (3) Chest pain with moderate risk for cardiac etiology Status: Resolved (4) Prerenal azotemia Status: Resolved (5) Anemia Assessment & Plan: -no gross bleeding anywhere but may still be due to iron def. s/p surgery or due to chronic disease - will get anemia indices Status: Acute (6) Neurologic gait dysfunction Assessment & Plan: -due to painful leg wound. PT/OT eval noted. Patien tfor JULIANE placement Status: Acute
[2017-10-14] MEDS: Vancomycin 1 gm/NS 200 ml 1 GM/200 ML BAG IVPB SCH ×2 (00:30→12:08)
[2017-10-14] MEDS ORDERED: Oxycodone/Acetaminophen 5/325 mg Tab PO PRN (02:05)
[2017-10-14 06:52] LABS: BASO # 0.1 K/uL (0.0-0.2); BASO % 1.3 % (0.0-2.0); EOS # 0.1 K/uL (0.0-0.7); EOS % 1.3 % (0.0-4.0); HEMOGLOBIN 9.2 g/dL (12.0-18.0); LYMPH % 22.7 % (20.0-40.0); MEAN CORPUSCULAR HEMOGLOBIN 30.5 pg (27.0-31.0); MEAN CORPUSCULAR HGB CONC 35.4 g/dL (33.0-37.0); MEAN PLATELET VOLUME 7.4 fL (7.2-11.7); MONO # 0.7 K/uL (0.0-0.8); MONO % 14.8 % (0.0-10.0); NEUT # 2.8 K/uL (1.8-7.0); NEUT % 59.9 % (50.0-75.0); RBC 3.03 Mil/uL (4.40-5.90); RED CELL DISTRIBUTION WIDTH 14.1 % (11.5-14.5); WHITE BLOOD COUNT 4.6 K/uL (4.8-10.8)
[2017-10-14 08:15] LABS: FOLATE 17.2 ng/mL
[2017-10-14 08:30] LABS: ALB/GLOB RATIO 0.9 (1.0-2.1); ALBUMIN 2.7 g/dL (3.5-5.0); ALT/SGPT 118 U/L (21-72); AST/SGOT 90 U/L (17-59); BLOOD UREA NITROGEN 19 mg/dL (9-20); CALCIUM 8.6 mg/dl (8.6-10.4); GFR AFRICAN-AMERICAN > 60; GFR NON-AFRICAN AMERICAN > 60
--- NOTE | 2017-10-14 08:55 | CP.PCM.DIS ---
Provider - Provider Date of Admission: 10/09/17 08:18 Attending physician: Bal Orozco Jr, MD Time Spent in preparation of Discharge (in minutes): 45 Hospital Course - Lab Results Lab Results: Micro Results 10/09/17 08:15 Blood Blood Culture - Preliminary NO GROWTH AFTER 4 DAYS 10/09/17 08:00 Blood Blood Culture - Preliminary NO GROWTH AFTER 4 DAYS 10/09/17 08:43 Leg - Right Gram Stain - Final 10/09/17 08:43 Leg - Right Wound Culture - Final Escherichia Coli Enterobacter Cloacae Ssp Cloac Most Recent Lab Values WBC 4.6 K/uL (4.8-10.8) L 10/14/17 06:42 RBC 3.03 Mil/uL (4.40-5.90) L 10/14/17 06:42 Hgb 9.2 g/dL (12.0-18.0) L 10/14/17 06:42 Hct 26.0 % (35.0-51.0) L 10/14/17 06:42 MCV 86.0 fL (80.0-94.0) 10/14/17 06:42 MCH 30.5 pg (27.0-31.0) 10/14/17 06:42 MCHC 35.4 g/dL (33.0-37.0) 10/14/17 06:42 RDW 14.1 % (11.5-14.5) 10/14/17 06:42 Plt Count 236 K/uL (130-400) 10/14/17 06:42 MPV 7.4 fL (7.2-11.7) 10/14/17 06:42 Neut % (Auto) 59.9 % (50.0-75.0) 10/14/17 06:42 Lymph % (Auto) 22.7 % (20.0-40.0) 10/14/17 06:42 Duchesne % (Auto) 14.8 % (0.0-10.0) H 10/14/17 06:42 Eos % (Auto) 1.3 % (0.0-4.0) 10/14/17 06:42 Baso % (Auto) 1.3 % (0.0-2.0) 10/14/17 06:42 Neut # (Auto) 2.8 K/uL (1.8-7.0) 10/14/17 06:42 Lymph # (Auto) 1.0 K/uL (1.0-4.3) 10/14/17 06:42 Duchesne # (Auto) 0.7 K/uL (0.0-0.8) 10/14/17 06:42 Eos # (Auto) 0.1 K/uL (0.0-0.7) 10/14/17 06:42 Baso # (Auto) 0.1 K/uL (0.0-0.2) 10/14/17 06:42 Sodium 137 mmol/L (132-148) 10/14/17 06:42 Potassium 4.0 mmol/L (3.6-5.2) 10/14/17 06:42 Chloride 103 mmol/L (98-107) 10/14/17 06:42 Carbon Dioxide 24 mmol/L (22-30) 10/14/17 06:42 Anion Gap 14 (10-20) 10/14/17 06:42 BUN 19 mg/dL (9-20) 10/14/17 06:42 Creatinine 1.0 mg/dL (0.8-1.5) 10/14/17 06:42 Est GFR ( Amer) > 60 10/14/17 06:42 Est GFR (Non-Af Amer) > 60 10/14/17 06:42 POC Glucose (mg/dL) 110 mg/dL (65-110) 10/13/17 17:19 Random Glucose 103 mg/dL (75-110) 10/14/17 06:42 Calcium 8.6 mg/dl (8.6-10.4) 10/14/17 06:42 Ferritin 362.0 ng/mL 10/14/17 06:42 Total Bilirubin 0.9 mg/dL (0.2-1.3) 10/14/17 06:42 AST 90 U/L (17-59) H D 10/14/17 06:42 ALT 118 U/L (21-72) H D 10/14/17 06:42 Alkaline Phosphatase 132 U/L (38-126) H D 10/14/17 06:42 Total Creatine Kinase 34 U/L (55-170) L 10/11/17 07:08 CK-MB (Mass) 0.68 ng/mL (0.0-3.38) 10/11/17 07:08 Troponin I 0.0950 ng/mL (0.00-0.120) 10/11/17 07:08 Total Protein 5.8 g/dL (6.3-8.3) L 10/14/17 06:42 Albumin 2.7 g/dL (3.5-5.0) L 10/14/17 06:42 Globulin 3.1 gm/dL (2.2-3.9) 10/14/17 06:42 Albumin/Globulin Ratio 0.9 (1.0-2.1) L 10/14/17 06:42 Triglycerides 72 mg/dL (0-149) D 10/11/17 07:08 Cholesterol 100 mg/dL (0-199) 10/11/17 07:08 LDL Cholesterol Direct 50 mg/dL (0-129) 10/11/17 07:08 HDL Cholesterol 24 mg/dL (30-70) L 10/11/17 07:08 Vitamin B12 > 1000 pg/mL (239-931) H 10/14/17 06:42 Folate 17.2 ng/mL 10/14/17 06:42 Vancomycin Trough 11.4 ug/mL (5.0-10.0) H 10/11/17 11:23 - Hospital Course Hospital Course: 76 y/o male who presented to ER from [facility] complaining of drainage from right leg surgical wound. Patient was hospitalized in September for fem pop bypass w/ vein on 09/20/17. He states he was seen a couple weeks after surgery for staple removal. He states at that time the wound started draining blood tinged serous fluid. Since removal of myra the drainage has not ceased. He complains of swelling and redness to RLE that has progressively gotten worse. He states the pain has progressed since as well which has limited his mobility. During hospital course IV abx were started and Physical therapy was consulted. Drainage from leg started to decrease. Patient ambulated and improved ROM of LLE. Patient agreed to go to [facility] for continued care and improvement. [place] [facility] [place]charge Exam - Head Exam Head Exam: NORMAL INSPECTION - Eye Exam Eye Exam: EOMI - ENT Exam ENT Exam: Mucous Membranes Moist - Respiratory Exam Respiratory Exam: NORMAL BREATHING PATTERN. absent: Accessory Muscle Use, Respiratory Distress - Cardiovascular Exam Cardiovascular Exam: +S1, +S2. absent: Bradycardia, Tachycardia - Extremities Exam Additional comments: RLE serous drainage. dressing C/D/I - Neurological Exam Neurological exam: Alert, Oriented x3 - Psychiatric Exam Psychiatric exam: Normal Affect - Skin Skin Exam: Intact, Warm Discharge Plan - Discharge Medications Prescriptions: Ciprofloxacin HCl [Cipro] 500 mg PO DAILY 7 Days tab Isosorbide Mononitrate [Imdur] 60 mg PO DAILY 30 Days tab Metoprolol Tartrate [Lopressor] 100 mg PO BID 60 Days tab oxyCODONE/Acetaminophen [Percocet 5/325 mg Tab] 1 tab PO Q4H PRN 3 Days tab PRN Reason: Pain, Moderate (4-7) Valsartan 80 mg PO DAILY 30 Days tablet - Follow Up Plan Condition: STABLE Disposition: REHAB FACILITY/REHAB UNIT Additional Instructions: PLACE UNDER THE SERVICE OF DR FLY JUAREZ [place] [facility] [place]ING ORDER CONTINUE ALL MEDICATION PER MED REC NEW PRESCRIPTION CIPRO 500 MG PO FOR 7 DAYS VALSARTAN 80 MG PO DAILY LOPRESSOR 100 MG BID ACTIVITY TOLERATED AND FACILITY PROTOCOL LEG INCISION DRESSING CHANGE PER FACILITY PROTOCOL PLEASE ARRANGE FOLLOW UP WITH DR OROZCO AT HIS OFFICE ---CALL FOR APPOINTMENT CALL DR ANN GRIMM FOR FURTHER ORDER Referrals: Ann Grimm MD [Staff Provider] - Bal Orozco Jr., MD [Staff Provider] -
[2017-10-14 15:51] VITALS: BP 118/61; PULSE 80; TEMP 99.4; O2SAT 97
== END 2017-10-14 18:30 | DRG 920 ==
LOC: C.ER 07:47 → C.9E 08:18 → C.3T 15:44
PROVIDERS: ADMIT Surgery Vascular Surgery; ATTEND Surgery Vascular Surgery
DX: T81.30XA Disruption of wound, unspecified, initial encounter (principal); L03.115 Cellulitis of right lower limb; I73.9 Peripheral vascular disease, unspecified; N18.9 Chronic kidney disease, unspecified; Z87.891 Personal history of nicotine dependence; Z95.5 Presence of coronary angioplasty implant and graft; N40.0 Benign prostatic hyperplasia without lower urinary tract symptoms; I25.10 Atherosclerotic heart disease of native coronary artery without angina pectoris; I12.9 Hypertensive chronic kidney disease with stage 1 through stage 4 chronic kidney disease, or unspecified chronic kidney disease; E78.5 Hyperlipidemia, unspecified; D64.9 Anemia, unspecified

== ENCOUNTER 2018-04-09 06:22 | Day surgery (SDC) | payer MEDICARE, BC ==
[2018-04-08 08:08] VITALS: BMI 24.6
[2018-04-09] MEDS ORDERED: Iodixanol 320 MG/ML 100 ML BOTTLE IV ONE (07:28)
[2018-04-09] MEDS ORDERED: Midazolam 2 MG/2 ML VIAL ONE (07:50)
--- NOTE | 2018-04-09 20:40 | CARDCATH ---
PROCEDURE DATE: 04/09/2018 PROCEDURES: 1. Left heart catheterization. 2. Coronary angiogram. CLINICAL INDICATIONS: Abnormal stress test, hypertension, hyperlipidemia, history of CAD and prior stent placement, peripheral vascular disease. REFERRING PHYSICIAN: Chrissie Grimm MD PERFORMING PHYSICIAN: Angel Aguila MD DESCRIPTION OF PROCEDURE: After informed consent, the patient was prepped and draped in the usual sterile fashion. A 2% lidocaine was given in the right wrist for local anesthesia. Using micropuncture technique, a 6-Uzbek sheath was introduced into the right radial artery. JL4 6-Uzbek diagnostic catheter was engaged into the left ventricle. LV end-diastolic pressure was measured. Contrast injected and LV angiogram was done. Then, the catheter was pulled back across the aortic valve. Gradient across the aortic valve was measured. Then, the same catheter was engaged into the right coronary artery. 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 Non-selective right coronary angiogram was performed. Then, the catheter was exchanged to a 6-Uzbek Macclenny catheter. The catheter was engaged into the left main coronary artery. Contrast was injected and left coronary angiogram was done. The patient tolerated the procedure well. Postprocedure, Terumo radial band was applied with excellent hemostasis. FINDINGS: 1. Left main coronary artery is patent. 2. Prior stent in the LAD is patent. Proximal and mid LAD is patent. Distal LAD has 50% nonobstructive stenosis. Diagonal branches are patent. 3. Left circumflex and obtuse marginal branches are patent. 4. 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 5. LV ejection fraction of approximately 55%. EDP is 20. No gradient across the aortic valve. IMPRESSION: 1. Prior stent in the left anterior descending is patent. 2. Nonobstructive left anterior descending disease. 3. Normal left ventricular systolic function. PLAN: Recommend medical management. Angel Aguila MD
== END 2018-04-09 11:15 | disposition home or self-care (01) ==
LOC: C.CATHLAB 06:22
PROVIDERS: ATTEND Internal Medicine Cardiovascular Disease
DX: I25.10 Atherosclerotic heart disease of native coronary artery without angina pectoris (principal); I10 Essential (primary) hypertension; E78.5 Hyperlipidemia, unspecified; Z95.5 Presence of coronary angioplasty implant and graft; I73.9 Peripheral vascular disease, unspecified
CPT/HCPCS: 93458; 99152; 99153; C1769; C1887; J1644; J2001; J2250; J3010; Q9967

== ENCOUNTER 2018-06-17 08:24 | Outpatient (CLI) | payer MEDICARE, BC | END 2018-06-17 08:25 | disposition home or self-care (01) | LOC: C.RADH 08:24 ==

== ENCOUNTER 2018-06-26 09:33 | Outpatient (CLI) | payer MEDICARE, BC | END 2018-06-26 09:34 | disposition home or self-care (01) | LOC: C.LAB 09:33 → C.CTH 09:34 | DX: R13.10 Dysphagia, unspecified (principal) ==

== ENCOUNTER 2018-07-04 07:47 | Day surgery (SDC) | payer MEDICARE, BC ==
[2018-07-04 07:50] VITALS: BMI 25.4
[2018-07-04 08:26] LABS: BASO # 0.1 K/uL (0.0-0.2); EOS # 0.1 K/uL (0.0-0.7); EOS % 2.5 % (0.0-4.0); HEMOGLOBIN 13.5 g/dL (12.0-18.0); LYMPH # 1.6 K/uL (1.0-4.3); LYMPH % 26.8 % (20.0-40.0); MEAN CELL VOLUME 89.6 fL (80.0-94.0); MEAN CORPUSCULAR HEMOGLOBIN 30.3 pg (27.0-31.0); MEAN CORPUSCULAR HGB CONC 33.8 g/dL (33.0-37.0); MEAN PLATELET VOLUME 8.2 fL (7.2-11.7); MONO # 0.6 K/uL (0.0-0.8); MONO % 9.9 % (0.0-10.0); NEUT # 3.5 K/uL (1.8-7.0); NEUT % 59.8 % (50.0-75.0); RBC 4.45 Mil/uL (4.40-5.90); RED CELL DISTRIBUTION WIDTH 14.8 % (11.5-14.5); WHITE BLOOD COUNT 5.8 K/uL (4.8-10.8)
[2018-07-04 08:27] LABS: INR 0.9; PROTHROMBIN TIME 10.3 SECONDS (9.7-12.2)
[2018-07-04 08:35] LABS: BLOOD UREA NITROGEN 27 mg/dL (9-20); CALCIUM 9.1 mg/dl (8.6-10.4); GFR NON-AFRICAN AMERICAN > 60
[2018-07-04] MEDS ORDERED: Lidocaine 4% (Laryng-O-Jet) Kit MM ONE ×2 (09:01→11:03)
[2018-07-04] MEDS ORDERED: Propofol 10 mg/ml Inj (20 ML) ONE (11:01)
[2018-07-04] MEDS ORDERED: Phenylephrine 10 mg/ml Inj ONE (11:15)
--- NOTE | 2018-07-05 17:44 | CARD ---
APPROVED REPORT Date of service: 07/04/2018 EXAM: Transesophageal echocardiogram with color flow Doppler. INDICATION Mitral Valve Prolapse Mitral Valve E/A ratio0.0 TDI E/Lateral E'0.0E/Medial E'0.0 Reason For Test : To assess Mitral valve disease PROCEDURE After obtaining informed consent, patient underwent transesophageal echo in the [employer]. Type of Sedation : Conscious Sedation Sedation was provided by anesthesiologist. Sedation was achieved with intravenously. The GRIFFIN was performed complications. Throughout the procedure, the blood pressure, pulse oximetry, cardiac rhythm, and rate were monitored. The patient tolerated the procedure without adverse effects. Recovery from conscious sedation was uneventful and vital signs were stable. LEFT VENTRICLE The left ventricular function is normal. The left ventricular ejection fraction is within the normal range. No left ventricle thrombus noted on this study. There is no ventricular septal defect visualized. RIGHT VENTRICLE The right ventricle is normal size. The right ventricular systolic function is normal. ATRIA The left atrium is moderately dilated. The right atrium size is normal. The interatrial septum is intact with no evidence for an atrial septal defect. AORTIC VALVE The aortic valve is mildly thickened. No aortic regurgitation is present. There is no aortic valvular stenosis. There is no aortic valvular vegetation. MITRAL VALVE A moderate mitral valve prolapse is present. There is a severe prolapsed posterior mitral valve leaflet. There is no mitral valve stenosis. Mitral regurgitation is severe. TRICUSPID VALVE The tricuspid valve is normal in structure. There is mild tricuspid regurgitation. There is no tricuspid valve prolapse or vegetation. There is no tricuspid valve stenosis. PULMONIC VALVE The pulmonary valve is normal in structure. There is no pulmonic valvular regurgitation. GREAT VESSELS The aortic root is normal in size. 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
--- NOTE | 2018-07-08 10:20 | CARD ---
APPROVED REPORT Date of service: 07/04/2018 EKG Measurement Heart [id number] <Conclusion> Normal sinus rhythm Normal ECG
== END 2018-07-04 15:15 | disposition home or self-care (01) ==
LOC: C.CATHLAB 07:47
PROVIDERS: ATTEND Internal Medicine Cardiovascular Disease
DX: I34.1 Nonrheumatic mitral (valve) prolapse (principal)
CPT/HCPCS: 36415; 80048; 85025; 85610; 85730; 93005; 93312; J2001; J2370; J2704